=== PATIENT | female | born 1940 | race Caucasian/White ===

== ENCOUNTER 2016-06-01 01:26 | Inpatient (IN) | payer MEDICARE, BC ==
[2016-06-01] MEDS ORDERED: SODIUM CHLORIDE 0.9% 500 ML IV STA (02:45)
[2016-06-01 03:24] LABS: Basophils % (A) 0 %; CH 27.7; CHCM 30.3; Eosinophils # (A) 0.1 k/uL (0-0.7); Eosinophils % (A) 1 %; HDW 2.91; HGB 11.3 gm/dL (11.4-16.0); Hypochromasia Marked; Luc # (Auto) 0.19; Luc % (Auto) 2; Lymphocytes # (A) 1.5 k/uL (1.0-4.8); Lymphocytes % (A) 19 %; MCHC 30.5 g/dL (31.0-37.0); MCV 91.8 fL (80.0-100.0); Monocytes # (A) 0.6 k/uL (0-1.0); Monocytes % (A) 7 %; Neutrophils # (A) 5.4 k/uL (1.3-7.7); Neutrophils % (A) 70 %; RBC 4.03 m/uL (3.80-5.40); RDW 14.6 % (11.5-15.5); WBC 7.8 k/uL (3.8-10.6)
[2016-06-01 03:36] LABS: Calcium 11.2 mg/dL (8.4-10.2); Potassium 5.6 mmol/L (3.5-5.1); Total Bilirubin 0.6 mg/dL (0.2-1.3); Total Protein 7.7 g/dL (6.3-8.2)
--- NOTE | 2016-06-01 03:53 | CT ---
ADDENDUM - Added by Chung Treviño M.D. on 06/01/2016 3:54 AM (-04:00) typo correction: "intrapelvic" is meant to be "free pelvic" EXAM: CT Abdomen and Pelvis Without Intravenous Contrast. CLINICAL HISTORY: weakness and wheezing, abdominal pain TECHNIQUE: Axial computed tomography images of the abdomen and pelvis without intravenous contrast. CTDI is 50.9 mGy and DLP is 2993.3 mGy-cm This CT exam was performed using one or more of the following dose reduction techniques: automated exposure control, adjustment of the mA and/or kV according to patient size, and/or use of iterative reconstruction technique. Coronal and sagittal reconstructions are performed COMPARISON: 07/22/15 FINDINGS: Lower thorax: No acute findings. ABDOMEN: Liver: Unremarkable. Gallbladder and bile ducts: Unremarkable. No calcified stones. No ductal dilation. Pancreas: Unremarkable. No ductal dilation. Spleen: Unremarkable. No splenomegaly. Adrenals: Unremarkable. No mass. Kidneys and ureters: 7 x 10 cm exophytic lower pole left renal cyst, similar. Stomach and bowel: Unremarkable. No obstruction. No mucosal thickening. Appendix: No findings to suggest acute appendicitis. PELVIS: Bladder: Unremarkable. No stones. Reproductive: Uterus and ovaries are not seen.. ABDOMEN and PELVIS: Intraperitoneal space: Small amount of intrapelvic fluid is nonspecific. Bones/joints: Moderate degenerative changes in the visualized osseous structures. No acute fracture. No dislocation. Soft tissues: Small amount of subcutaneous fat stranding in pelvic is likely related to projection or represents scarring. Vasculature: Moderate amount of atherosclerotic calcifications. No abdominal aortic aneurysm. Lymph nodes: Unremarkable. No enlarged lymph nodes. IMPRESSION: Small amount of intrapelvic fluid is nonspecific.
[2016-06-01] MEDS ORDERED: SODIUM CHLORIDE 0.9% 1,000 ML IV ONE (04:08)
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
[2016-06-01 07:35] LABS: Appearance,Urine Cloudy (Clear); Bilirubin,Urine 1+ (Negative); Glucose,Urine (UA) Negative (Negative); Ketones,Urine Negative (Negative); Leukocyte Esterase,Urine Negative (Negative); Mucus,Urine Occasional /hpf; Nitrite,Urine Negative (Negative); Particle Count 9225; Protein,Urine 1+ (Negative); Specific Gravity,Urine 1.018 (1.001-1.035); Squamous Epithelial Cell,Urine 2 /hpf (0-4); UA Billing (MACRO vs. MICRO) MICRO; WBC,Urine 2 /hpf (0-5)
--- NOTE | 2016-06-01 08:46 | XR ---
EXAMINATION TYPE: XR chest 2V DATE OF EXAM: 06/01/2016 8:39 AM HISTORY: Shortness of breath. COMPARISON: 08/21/2015 TECHNIQUE: Single view of the chest is submitted. FINDINGS: Demonstrated are scattered senescent parenchymal change. Mild chronic elevation left lung base. Inci dental azygos lobe and fissure right upper lobe. There is no evidence for focal infiltrate. The heart is stable. Hilar and mediastinal structures are within normal limits. Degenerative changes are seen of the dorsal spine. IMPRESSION: 1. Chronic changes without evidence for acute pulmonary disease.
[2016-06-01] MEDS ORDERED: FAMOTIDINE 20 MG/2 ML VIAL IV SCH (09:30)
[2016-06-01] MEDS: SODIUM CHLORIDE 0.9% 1,000 ML IV SCH ×2 (09:35→20:14)
[2016-06-01] MEDS: HEPARIN SODIUM,PORCINE 5,000 UNIT/ML 1 ML VIAL SQ SCH ×2 (12:24→22:05)
[2016-06-01 14:33] VITALS: BMI 40.3
[2016-06-01 17:29] LABS: Glucose,Whole Blood 55 mg/dL (75-99)
[2016-06-01] MEDS: INSULIN LISPRO (humaLOG) 300 UNIT/3 ML VIAL SQ SCH ×2 (17:32→22:06)
[2016-06-01] MEDS: INSULIN NPH/REG INSULIN 70/30 300 UNIT/3 ML VIAL SQ SCH (17:32)
[2016-06-01 17:41] LABS: Glucose,Whole Blood 85 mg/dL (75-99)
[2016-06-01 20:10] LABS: Glucose,Whole Blood 160 mg/dL (75-99)
[2016-06-01] MEDS ORDERED: FAMOTIDINE 20 MG TAB PO SCH (21:00)
[2016-06-01] MEDS: MECLIZINE 12.5 MG TAB PO SCH (22:05)
[2016-06-01] MEDS: ATORVASTATIN 10 MG TAB PO SCH (22:05)
[2016-06-01] MEDS: GABAPENTIN 300 MG CAP PO SCH (22:05)
[2016-06-01] MEDS: MELATONIN 3 MG TABLET PO SCH (22:06)
[2016-06-02] MEDS: HEPARIN SODIUM,PORCINE 5,000 UNIT/ML 1 ML VIAL SQ SCH ×4 (00:22→23:26)
[2016-06-02] MEDS: SODIUM CHLORIDE 0.9% 1,000 ML IV SCH ×2 (06:24→16:49)
[2016-06-02] MEDS: GABAPENTIN 300 MG CAP PO SCH ×7 (06:24→23:27)
[2016-06-02] MEDS: LEVOTHYROXINE 125 MCG TAB PO SCH (06:24)
[2016-06-02 07:16] LABS: Glucose,Whole Blood 138 mg/dL (75-99)
[2016-06-02] MEDS: INSULIN NPH/REG INSULIN 70/30 300 UNIT/3 ML VIAL SQ SCH ×3 (08:43→17:32)
[2016-06-02] MEDS: INSULIN LISPRO (humaLOG) 300 UNIT/3 ML VIAL SQ SCH ×4 (08:46→21:05)
[2016-06-02] MEDS: LORATADINE 10 MG TAB PO SCH (08:48)
[2016-06-02] MEDS: FLUoxetine HCL 20 MG CAP PO SCH (08:48)
[2016-06-02] MEDS: MECLIZINE 12.5 MG TAB PO SCH ×2 (08:48→21:04)
[2016-06-02] MEDS: LISINOPRIL 20 MG TAB PO SCH (08:48)
[2016-06-02] MEDS: ASPIRIN 325 MG TAB PO SCH (08:48)
[2016-06-02] MEDS: ATENOLOL 25 MG TAB PO SCH (08:48)
[2016-06-02] MEDS: metFORMIN 850 MG TAB PO SCH (08:49)
[2016-06-02] MEDS: FAMOTIDINE 20 MG TAB PO SCH (08:49)
[2016-06-02] MEDS: HYDROCHLOROTHIAZIDE 25 MG TAB PO SCH (08:49)
[2016-06-02] MEDS ORDERED: DOXYCYCLINE 50 MG CAP PO SCH (09:00)
[2016-06-02] MEDS ORDERED: FAMOTIDINE 20 MG/2 ML VIAL IV SCH (09:00)
[2016-06-02 09:05] LABS: CH 27.1; CHCM 29.9; HCT 33.2 % (34.0-46.0); HDW 2.89; HGB 10.3 gm/dL (11.4-16.0); Hypochromasia Marked; MCH 28.2 pg (25.0-35.0); MCV 90.9 fL (80.0-100.0); Mean Platelet Volume 8.3; RBC 3.66 m/uL (3.80-5.40); RDW 14.3 % (11.5-15.5); WBC 5.3 k/uL (3.8-10.6)
[2016-06-02 09:18] LABS: Calcium 10.5 mg/dL (8.4-10.2); Potassium 5.1 mmol/L (3.5-5.1); Total Bilirubin 0.8 mg/dL (0.2-1.3); Total Protein 7.2 g/dL (6.3-8.2)
--- NOTE | 2016-06-02 10:29 | HP ---
DATE OF ADMISSION: 06/01/2016 CHIEF COMPLAINT: Abdominal pain, vomiting. HISTORY OF PRESENT ILLNESS: This 75-year-old female was admitted to the hospital after presenting to the emergency room with complaints of some nausea, vomiting and lethargy and weakness. The patient could not even stand on her feet. The patient was brought in to the emergency room in view of this. The patient has complained of these symptoms been going on for about a week. The patient because of weakness was brought in the emergency room. The daughter reports that patient was mildly confused. At the time of my evaluation, patient is totally awake, alert and her usual self. The patient does have a history of diabetes mellitus; however, she has been despite not eating much and having some intermittent vomiting, in no distress and blood sugars have been pretty good. The patient also has a previous history of pancreatitis and obstructive jaundice for which she had an ERCP back in September 2015 with resolution of her symptoms. Patient has had no further symptoms of jaundice. At present, the patient presents with mildly elevated calcium, lipase and potassium and dehydration. Suspected the patient may have underlying pancreatitis as she complains of pain in the epigastric area and back. The epigastric pains is not a radiating type of pain. The back pain seems to be also pretty much the whole back. She feels generalized malaise and weak. She has had no fever or chills. Denies any dysuria or hematuria. She has not had a bowel movement for over a week now. Past medical history is primarily significant for long-standing history of diabetes mellitus with complications of peripheral arterial disease and peripheral neuropathy. She also has a history of hypertension, hypothyroidism, and possible left subclavian steal syndrome. She does have history of gastroesophageal reflux, chronic dizziness, degenerative arthritis. No history of any myocardial infarction. Past surgical history is significant for appendectomy, tonsillectomy, cholecystectomy, total abdominal hysterectomy, left knee surgery, left ear surgery and an ERCP. PERSONAL HISTORY: She is a nonsmoker. Alcohol, none. FAMILY MEDICAL HISTORY: Brother 79 with history of diabetes mellitus, coronary artery disease; a brother, 68 with history of alcohol dependency. The patient has 2 daughters and 2 sons, one son recently . He was young. Another son has had a history of hypertension, diabetes mellitus. The patient has 2 daughters, one is obese and history of bronchial asthma, the other one has history of chronic anxiety. The patient is . SOCIAL HISTORY: Patient is , lives with her daughter. Allergies to IVP DYE and CODEINE. Medications include: 1. Metformin 850 mg daily. 2. Zantac 150 mg b.i.d. 3. Melatonin 3 mg at bedtime. 4. Antivert 12.5 mg b.i.d. 5. Lovastatin 40 mg daily. 6. Claritin 10 mg daily. 7. Synthroid 125 mcg daily. 8. Insulin, Novolin 70/30 sixty units a.c. t.i.d. 9. Hydrochlorothiazide 25 mg daily. 10. Neurontin 300 mg b.i.d. and 600 mg at bedtime. 11. Prozac 40 mg daily. 12. Doxycycline 100 mg q.48 hours. 13. Vitamin B12. 14. Lotensin 20 mg daily. 15. Tenormin 25 mg daily. 16. Aspirin 1 daily. 17. Xanax, 0.5 mg t.i.d. REVIEW OF SYSTEMS: NEURO: Denies any headaches, dizziness. No double vision, blurred vision. No symptoms of TIA, syncope, seizure. PSYCH: History of chronic anxiety and depression. CARDIAC: No angina, chest pain, shortness of breath, PND, orthopnea. RESPIRATORY: Denies shortness of breath, cough, hemoptysis. GI: Present complaint of nausea, vomiting, abdominal pain. No diarrhea, has had constipation. : No symptoms of dysuria, hematuria, decreased urine output. EXTREMITIES: Denies pain but does have generalized weakness of the lower extremities. CONSTITUTIONAL: No fever or chills. HEMATOLOGIC: No anemia or bleeding disorder. ENDOCRINE: History of diabetes mellitus. SKIN: No rash. ENT: Adequate vision and mild decreased hearing. PHYSICAL EXAMINATION: Pleasant, elderly female, who appears at present in no distress after receiving some hydration in the emergency room. Vital signs reveal temperature 97.6, pulse 72, respirations 16, blood pressure 151/66. At the time of ER evaluation, patient's temperature is 97.4, pulse 71, respirations 22, blood pressure 129/58, pulse ox 98% on 2 L. HEENT: Normocephalic. Pupils reactive. However, the patient has anisocoria, left pupil larger than the right. Nostrils are clear. Oral cavity is dry. Ears reveal no drainage. Neck reveals no JVD, carotid bruits, or thyromegaly. CHEST EXAMINATION: Trachea central. Symmetrical expansion, lung schneider are clear to auscultation. CARDIAC: Normal S1, S2 with no gallops. Systolic murmur 2/6 left sternal border. ABDOMEN: Protuberant, tender in the epigastric area. Bowel sounds active in all 4 quadrants. There is no rebound tenderness. No CVA tenderness. EXTREMITIES: Reveal no edema. Good pulses upper extremities, markedly decreased pedal pulses. Neurologically awake, alert, oriented with well-coordinated movements though has generalized weakness. LABORATORY ASSESSMENT: CBC is normal except for a hemoglobin of 11.3, platelets 137,000 now generally decreased. Electrolytes revealed potassium was 5.6, BUN 46, creatinine 1.7. Plasma lactic acid was 2.5. Calcium was 11.2, AST 45, lipase 321. Urinalysis had 1+ protein 1+ bilirubin. Total serum bilirubin 0.6. X-rays reported chest x-ray showed some chronic changes with no acute process. EKG reveals normal sinus rhythm with possible anterolateral infarct versus poor progression due to obesity. Her CAT scan of the abdomen, pelvis shows some intra-pelvic fluid is present, nonspecific. Liver was unremarkable. Gallbladder bile ducts were okay, pancreas was okay, spleen okay. There was a cyst in the left kidney. Bladder was unremarkable and the vasculature showed moderate amount of atherosclerotic calcifications with no abdominal aneurysm and no lymph node enlargement. ASSESSMENT: 1. Epigastric pain with nausea and vomiting. Symptoms and findings are suggestive of acute pancreatitis. 2. Mild hypercalcemia. 3. Chronic kidney disease stage III. 4. Peripheral arterial disease. 5. Diabetes mellitus. 6. Hypertension. 7. Generalized weakness. 8. Dehydration. 9. Mild anemia. 10. Mild thrombocytopenia. PLAN: Patient admitted to the hospital, will be hydrated. Patient's calcium could be the etiology to pancreatitis. She has had previous routine gallstone requiring ERCP. Patient's overall condition is reasonably stable at present. Will hydrate the patient and see if the patient can ambulate without difficulty. Patient's general condition was discussed with the patient. Prognosis remains guarded. Of note is that the patient's ERCP on 09/30/2015, patient had dilated common bile duct with filling defects suggestive of a common bile duct stone. The patient had sphincterotomy and balloon extraction using the balloon extraction. In view of that, will continue to monitor closely. Does not seem to have any obstructive jaundice at present. Patient's prognosis remains guarded. Condition was discussed with the patient.
[2016-06-02 11:19] LABS: Glucose,Whole Blood 187 mg/dL (75-99)
[2016-06-02] MEDS ORDERED: CYANOCOBALAMIN 500 MCG TAB PO SCH (12:00)
[2016-06-02 13:17] LABS: Hemoglobin A1C 6.2 % (4.2-6.1)
[2016-06-02 17:13] LABS: Glucose,Whole Blood 62 mg/dL (75-99)
[2016-06-02 17:36] LABS: Glucose,Whole Blood 66 mg/dL (75-99)
[2016-06-02 18:40] LABS: Glucose,Whole Blood 88 mg/dL (75-99)
[2016-06-02 20:23] LABS: Glucose,Whole Blood 104 mg/dL (75-99)
[2016-06-02] MEDS: MELATONIN 3 MG TABLET PO SCH (21:03)
[2016-06-02] MEDS: ATORVASTATIN 10 MG TAB PO SCH (21:04)
[2016-06-03] MEDS: GABAPENTIN 300 MG CAP PO SCH ×2 (04:16→08:32)
--- NOTE | 2016-06-03 05:51 | PN ---
CHIEF COMPLAINT: Re-evaluation. HISTORY OF PRESENT ILLNESS: This is an elderly female, 75 years of age, who was admitted to the hospital with some abdominal pain, nausea, vomiting, and generalized weakness. The patient's general condition is improved. She was feeling better today. REVIEW OF SYSTEMS: NEURO: Denies any headaches, dizziness. PSYCH: No anxiety. CARDIAC: No chest pain, angina, palpitations. RESPIRATORY: Denies shortness of breath, cough, hemoptysis. GI: No nausea, vomiting, abdominal pain, diarrhea. : No symptoms of dysuria, hematuria, urgency, frequency. EXTREMITIES: No pain. CONSTITUTIONAL: No fever, chills. PHYSICAL EXAMINATION: Pleasant female in no distress. VITALS: Temperature 98, pulse 77, respirations 20, blood pressure 124/70, pulse ox 99% on 2 L. HEENT: Normocephalic. NECK: No JVD. Chest is clear to auscultation. CARDIAC: Normal S1, S2 with no gallops, murmurs. ABDOMEN: Soft, no palpable masses. Bowel sounds normal. Epigastric pains resolved. Extremities reveal no edema. Good pulses both upper extremities. Decreased pedal pulses. NEUROLOGIC: Awake, alert, oriented with well coordinated movements. LABORATORY ASSESSMENT: CBC which shows a hemoglobin 10.3, platelets 119, white count 5.3. BUN 39, creatinine 1.55 with a GFR of 33. Calcium 10.5. A1c of 6.2. ASSESSMENT: 1. Acute pancreatitis, resolving. 2. Diabetes mellitus. 3. Chronic kidney disease stage IIIB. 4. Anemia, chronic. 5. Weakness, improved. 6. Hyperkalemia, resolved. PLAN: The patient at present is stable. Continue present medical regimen. Patient will be continued on IV hydration and advance diet. Prognosis remains guarded. Potential discharge home tomorrow if stable. Will check patient's lipase in the morning.
[2016-06-03] MEDS: LEVOTHYROXINE 125 MCG TAB PO SCH (06:09)
[2016-06-03 07:10] LABS: Glucose,Whole Blood 72 mg/dL (75-99)
[2016-06-03 08:18] LABS: CH 27.5; CHCM 30.2; HCT 34.6 % (34.0-46.0); HDW 2.91; HGB 10.6 gm/dL (11.4-16.0); Hypochromasia Marked; MCH 27.9 pg (25.0-35.0); MCHC 30.5 g/dL (31.0-37.0); MCV 91.3 fL (80.0-100.0); Mean Platelet Volume 8.4; RBC 3.79 m/uL (3.80-5.40); RDW 14.5 % (11.5-15.5); WBC 5.2 k/uL (3.8-10.6)
[2016-06-03] MEDS: INSULIN LISPRO (humaLOG) 300 UNIT/3 ML VIAL SQ SCH (08:31)
[2016-06-03] MEDS: INSULIN NPH/REG INSULIN 70/30 300 UNIT/3 ML VIAL SQ SCH (08:31)
[2016-06-03] MEDS: ASPIRIN 325 MG TAB PO SCH (08:32)
[2016-06-03] MEDS: HEPARIN SODIUM,PORCINE 5,000 UNIT/ML 1 ML VIAL SQ SCH (08:32)
[2016-06-03] MEDS: LORATADINE 10 MG TAB PO SCH (08:33)
[2016-06-03] MEDS: FLUoxetine HCL 20 MG CAP PO SCH (08:33)
[2016-06-03] MEDS: FAMOTIDINE 20 MG TAB PO SCH (08:33)
[2016-06-03] MEDS: MECLIZINE 12.5 MG TAB PO SCH (08:33)
[2016-06-03] MEDS: LISINOPRIL 20 MG TAB PO SCH (08:33)
[2016-06-03] MEDS: HYDROCHLOROTHIAZIDE 25 MG TAB PO SCH (08:33)
[2016-06-03] MEDS: ATENOLOL 25 MG TAB PO SCH (08:33)
[2016-06-03] MEDS: metFORMIN 850 MG TAB PO SCH (08:34)
[2016-06-03 08:38] VITALS: BP 129/59; PULSE 65; RESP 20; TEMP 98.2
[2016-06-03 08:39] LABS: Calcium 11.5 mg/dL (8.4-10.2); Potassium 4.8 mmol/L (3.5-5.1)
--- NOTE | 2016-06-12 12:22 | P.DS ---
Providers Date of admission: 06/01/16 07:14 Attending physician: Lucas Montoya Primary care physician: Lucas Monotya Hospital Course: Hospital course: This 75-year-old female was admitted to the hospital after being brought in the emergency room by the family for some altered mental status weakness and possible some shortness of breath. The patient evaluated in the emergency room. She subsequently admitted. After some hydration the patient appeared to be better. The patient had been having episodes of intermittent vomiting or abdominal pain with mildly elevated lipase and calcium. Is felt that the patient might be having a resolving pancreatitis as she had been sick for about a week. Following admission patient's hydrated. Her general condition improved. Suspect the patient's bilateral hypercalcemia could be contributing cause to his pancreatitis and mental status changes. The patient had a growth in his troponins and was discontinued in view of this. Patient improved, back to her baseline. Patient was ambulating without any difficulty. Patient was eating around meals fairly well. Patient remaining stable was discharged home to be followed up with outpatient. Prognosis remained guarded. We'll recheck patient's calcium on the outpatient. Her PTH had been ordered. Results pending Final diagnosis to include: 1. Acute pancreatitis 2. Hypercalcemia 3. Chronic kidney disease stage III 4. Diabetes mellitus associated with peripheral arterial disease and chronic kidney disease. 5. Hypertension 6. Encephalopathy resolved 7. Obesity 8. History of chronic depression Plan - Discharge Summary Discharge Medication List Cyanocobalamin [Vitamin B-12] 1,000 mcg PO DAILY 08/16/15 [History] Gabapentin [Neurontin] 300 mg PO Q4H 08/16/15 [History] Loratadine [Claritin] 10 mg PO DAILY 08/16/15 [History] Melatonin 3 mg PO HS 08/16/15 [History] Ranitidine HCl [Zantac] 150 mg PO BID 08/16/15 [History] Atenolol [Tenormin] 25 mg PO DAILY 08/19/15 [History] Benazepril [Lotensin] 20 mg PO DAILY 08/19/15 [History] Gabapentin 600 mg PO HS 08/19/15 [History] Insulin NPH Hum/Reg Insulin Hm [NovoLIN 70-30 100 UNIT/ML VIAL] 60 unit SQ AC- TID 08/19/15 [History] Doxycycline Hyclate 100 mg PO Q48H 08/21/15 [History] ALPRAZolam [Xanax] 0.5 mg PO TID tab 08/23/15 [Rx] Lovastatin 40 mg PO HS 09/26/15 [History] Meclizine [Antivert] 12.5 mg PO BID 09/26/15 [History] metFORMIN HCL [Glucophage] 850 mg PO DAILY 09/26/15 [History] Aspirin EC [Ecotrin] 325 mg PO DAILY 06/01/16 [History] FLUoxetine HCL [PROzac] 40 mg PO DAILY 06/01/16 [History] Levothyroxine Sodium [Synthroid] 125 mcg PO DAILY 06/01/16 [History] Follow up Appointment(s)/Referral(s): Lucas Montoya MD [Primary Care Provider] - 06/09/16 11:15 am Patient Instructions/Handouts: Pancreatitis (DC), Type 2 Diabetes in Adults (DC ), Weakness (GEN) Activity/Diet/Wound Care/Special Instructions: [facility]-[phone] Discharge Disposition: HOME WITH HOME HEALTH SERVICES
--- NOTE | 2016-06-16 09:41 | CDI ---
In responding to this query, please exercise your independent professional judgment. The [facility] Coding Staff and Clinical Documentation Specialists appreciate your assistance in clarifying documentation, maintaining compliance with coding guidelines, accurately documenting patients condition and capturing severity of illness. The fact that a question is asked does not imply that any particular answer is desired or expected. Communication forms are a method of clarifying documentation and are not made part of the Legal Health Record. Thank you in advance for your clarification. Last Revision, December 2014 Carlton Vazquez [address] [facility] [place] [address] Documentation Clarification Form Date: 06/16/2016 9:31:00 AM From: Michell Vasquez [facility]/Jessica Arzola, [employer] Worker Phone: Michell = [phone]. Jessica = [phone] Admit Date: 06/01/2016 7:14:00 AM Patient Name: Veronica Fontaine Visit Number: [id number] Discharge Date: 06-03-16 Dr. Lucas Montoya Please confirm any possible specificity to diagnosis of "encephalopathy". See below. Encephalopathy is documented in the Discharge Summary. Emergency Room has documented "Limitation = Altered Mental Status." H&P states "Daughter reports patient being mildly confused". Clinical Indicators: EEG: Not done CT/MRI Brain: Not done Treatment: N/A Consults: None done In your professional opinion, can you please clarify the specific type of encephalopathy, if known? Anoxic Encephalopathy Hypertensive Encephalopathy Metabolic Encephalopathy Septic Encephalopathy Toxic Encephalopathy Traumatic Encephalopathy Hepatic Encephalopathy, if indicated, please clarify: - Indicate if any complications: Coma, other disease process? - Indicate whether acute, sub-acute or chronic? - Causal Condition: Alcoholism, Hepatitis, other disease process? Other, please specify Unable to determine Please document in your progress notes and discharge summary in order to capture severity of illness and risk of mortality. Include clinical findings that support your diagnosis. FYI: Press F11 to launch patient chart. Place X here if this finding has no clinical significance, is not applicable or if you are not able to provide any additional documentation. DEEPAD
--- NOTE | 2016-06-17 15:41 | CDI ---
In responding to this query, please exercise your independent professional judgment. The [facility] Coding Staff and Clinical Documentation Specialists appreciate your assistance in clarifying documentation, maintaining compliance with coding guidelines, accurately documenting patients condition and capturing severity of illness. The fact that a question is asked does not imply that any particular answer is desired or expected. Communication forms are a method of clarifying documentation and are not made part of the Legal Health Record. Thank you in advance for your clarification. Last Revision, December 2014 Carlton Vazquez [address] [place] [address] Documentation Clarification Form Date: 06/17/2016 3:37:00 PM From: Michell Vasquez [facility] & Jessica Arzola, Bilingual Account Manager [phone] Admit Date: 06/01/2016 7:14:00 AM Patient Name: Veronica Fontaine Visit Number: [id number] Discharge Date: 06-03-16 Dr. Lucas Montoya Regarding ENCEPHALOPATHY: Please confirm any possible specificity to diagnosis of "encephalopathy". See below. Encephalopathy is documented in the Discharge Summary. Emergency Room has documented "Limitation = Altered Mental Status." H&P states "Daughter reports patient being mildly confused". Clinical Indicators: EEG: Not done CT/MRI Brain: Not done Treatment: N/A Consults: None done In your professional opinion, can you please clarify the specific type of encephalopathy, if known? Anoxic Encephalopathy Hypertensive Encephalopathy Metabolic Encephalopathy Septic Encephalopathy Toxic Encephalopathy Traumatic Encephalopathy Hepatic Encephalopathy, if indicated, please clarify: - Indicate if any complications: Coma, other disease process? - Indicate whether acute, sub-acute or chronic? - Causal Condition: Alcoholism, Hepatitis, other disease process? Other, please specify Unable to determine Please document in your progress notes and discharge summary in order to capture severity of illness and risk of mortality. Include clinical findings that support your diagnosis. FYI: Press F11 to launch patient chart. Place X here if this finding has no clinical significance, is not applicable or if you are not able to provide any additional documentation. DEEPAD
== END 2016-06-03 10:35 | disposition home health service (06) | DRG 438 ==
LOC: EC 01:26 → 6ICU 07:14 → 5MS5E 09:26
PROVIDERS: ADMIT Internal Medicine; ATTEND Internal Medicine
DX: K85.90 Acute pancreatitis without necrosis or infection, unspecified (principal); G93.40 Encephalopathy, unspecified; E11.42 Type 2 diabetes mellitus with diabetic polyneuropathy; D69.6 Thrombocytopenia, unspecified; E11.22 Type 2 diabetes mellitus with diabetic chronic kidney disease; E11.51 Type 2 diabetes mellitus with diabetic peripheral angiopathy without gangrene; N18.3 Chronic kidney disease, stage 3 (moderate); Z68.41 Body mass index [BMI] 40.0-44.9, adult; E83.52 Hypercalcemia; E87.5 Hyperkalemia; J44.9 Chronic obstructive pulmonary disease, unspecified; E86.0 Dehydration; D64.9 Anemia, unspecified; N28.1 Cyst of kidney, acquired; I12.9 Hypertensive chronic kidney disease with stage 1 through stage 4 chronic kidney disease, or unspecified chronic kidney disease; E66.9 Obesity, unspecified; R53.1 Weakness; E03.9 Hypothyroidism, unspecified; K21.9 Gastro-esophageal reflux disease without esophagitis; F32.9 Major depressive disorder, single episode, unspecified; F41.9 Anxiety disorder, unspecified; M19.90 Unspecified osteoarthritis, unspecified site; E78.5 Hyperlipidemia, unspecified; M54.5 Low back pain; R42 Dizziness and giddiness; H91.90 Unspecified hearing loss, unspecified ear; Z79.4 Long term (current) use of insulin; Z79.899 Other long term (current) drug therapy; Z82.5 Family history of asthma and other chronic lower respiratory diseases; Z83.3 Family history of diabetes mellitus; Z82.49 Family history of ischemic heart disease and other diseases of the circulatory system; Z87.442 Personal history of urinary calculi; Z90.710 Acquired absence of both cervix and uterus; Z91.041 Radiographic dye allergy status; Z88.5 Allergy status to narcotic agent; Z87.828 Personal history of other (healed) physical injury and trauma; Z87.891 Personal history of nicotine dependence; Z79.82 Long term (current) use of aspirin; Z90.49 Acquired absence of other specified parts of digestive tract; Z80.0 Family history of malignant neoplasm of digestive organs; Z81.1 Family history of alcohol abuse and dependence; Z81.8 Family history of other mental and behavioral disorders; Z71.3 Dietary counseling and surveillance; Z86.69 Personal history of other diseases of the nervous system and sense organs
CPT/HCPCS: 36415; 71020; 74176; 80048; 80053; 80061; 81001; 82150; 83036; 83605; 83690; 83970; 84484; 85025; 85027; 87040; 93005; 96360; 96361; 99285

== ENCOUNTER 2016-06-07 10:12 | Inpatient (IN) | payer MEDICARE, BC ==
[~2016-06-07 10:12] MED LIST: ATROPINE SULFATE 0.1 MG/ML 10ML SYRINGE ONE; EPINEPHrine 10 ML SYRINGE (0.1 MG/ML) ONE
[2016-06-07] MEDS ORDERED: IPRATROPIUM-ALBUTEROL 3 ML NEB INHALATION STA (10:17)
[2016-06-07] MEDS ORDERED: methylPREDNISolone SOD SUCCI 125 MG/2 ML VIAL IV STA (10:17)
[2016-06-07] MEDS ORDERED: SODIUM CHLORIDE 0.9% 1,000 ML IV STA (10:17)
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
[2016-06-07 10:31] LABS: Glucose,Whole Blood 131 mg/dL (75-99)
[2016-06-07 10:46] LABS: Basophils % (A) 1 %; CH 27.4; Eosinophils # (A) 0.2 k/uL (0-0.7); Eosinophils % (A) 3 %; HCT 36.1 % (34.0-46.0); HDW 2.89; Hypochromasia Marked; Luc # (Auto) 0.27; Luc % (Auto) 4; Lymphocytes # (A) 1.7 k/uL (1.0-4.8); Lymphocytes % (A) 24 %; MCHC 30.4 g/dL (31.0-37.0); MCV 91.9 fL (80.0-100.0); Mean Platelet Volume 8.6; Monocytes # (A) 0.6 k/uL (0-1.0); Monocytes % (A) 9 %; Neutrophils # (A) 4.4 k/uL (1.3-7.7); Neutrophils % (A) 60 %; RBC 3.93 m/uL (3.80-5.40); RDW 14.9 % (11.5-15.5); WBC 7.2 k/uL (3.8-10.6); WBC (Perox) 7.61
[2016-06-07 10:49] LABS: ABG Base Excess 3.4 mmol/L; ABG HCO3 29 mmol/L (21-25); ABG PCO2 57 mmHg (35-45); ABG PH 7.33 (7.35-7.45); ABG PO2 210 mmHg (83-108); ABG TCO2 31 mmol/L (19-24)
[2016-06-07 11:02] LABS: Calcium 11.2 mg/dL (8.4-10.2); Potassium 5.1 mmol/L (3.5-5.1); Total Bilirubin 0.7 mg/dL (0.2-1.3); Total Protein 7.4 g/dL (6.3-8.2)
[2016-06-07 11:16] LABS: INR 1.1 (<1.1); Partial Thromboplastin Time 20.4 sec (22.0-30.0)
--- NOTE | 2016-06-07 11:16 | CT ---
EXAMINATION TYPE: CT brain wo con DATE OF EXAM: 06/07/2016 11:10 AM COMPARISON: NONE INDICATION: ams DLP: 1121 mGycm, Automated exposure control for dose reduction was used. CONTRAST: None CT of the brain is performed utilizing 3 mm thick sections through the posterior fossa and 3 mm thick sections through the remaining calvarium. Study is performed within 24 hours of arrival to the hosp ital. No abnormal hyperdensity is present to suggest an acute intracranial hemorrhage. No mass lesion is evident. No acute infarcts are evident. Mild periventricular white matter hypodensity adjacent to the anterior horns lateral ventricles is present, likely on the basis of chronic white matter ischemic change. Ventricles and sulci are appropriate for the patient age. Paranasal sinuses and mastoid air cells within the [id number] are clear. IMPRESSIONS: 1. Mild chronic appearing white matter ischemic type changes
[2016-06-07 11:18] LABS: Creatine Kinase 34 U/L (30-135)
--- NOTE | 2016-06-07 11:20 | XR ---
EXAMINATION TYPE: XR chest 1V portable DATE OF EXAM: 06/07/2016 11:15 AM COMPARISON: 06/01/2016 INDICATION: Dyspnea short of breath COPD TECHNIQUE: Single frontal view of the chest is obtained. FINDINGS: The heart size is normal. The pulmonary vasculature is normal. Azygos fissure is present. There may be some atelectasis within the azygos lobe. Exam is somewhat valladares ited by body habitus. Left diaphragm is not well visualized. IMPRESSION: 1. Poor visualization left diaphragm is suggestion of some azygos lobe atelectasis. Findings are wors ening from prior study.
[2016-06-07 11:31] LABS: Creatine Kinase MB 1.3 ng/mL (0.0-2.4); Troponin I <0.012 ng/mL (0.000-0.034)
[2016-06-07 11:54] LABS: Appearance,Urine Clear (Clear); Bilirubin,Urine Negative (Negative); Glucose,Urine (UA) Negative (Negative); Ketones,Urine Negative (Negative); Leukocyte Esterase,Urine Negative (Negative); Nitrite,Urine Negative (Negative); Protein,Urine Negative (Negative); Specific Gravity,Urine 1.007 (1.001-1.035); UA Billing (MACRO vs. MICRO) CHEM; Urobilinogen,Urine <2.0 mg/dL (<2.0)
[2016-06-07] MEDS ORDERED: IPRATROPIUM-ALBUTEROL 3 ML NEB INHALATION PRN (15:13)
[2016-06-07] MEDS: SODIUM CHLORIDE 0.9% 1,000 ML IV SCH (15:21)
[2016-06-07 16:46] LABS: Glucose,Whole Blood 195 mg/dL (75-99)
[2016-06-07] MEDS: IPRATROPIUM-ALBUTEROL 3 ML NEB INHALATION SCH ×2 (16:46→20:20)
[2016-06-07 20:37] LABS: Glucose,Whole Blood 223 mg/dL (75-99)
[2016-06-08 06:08] LABS: Glucose,Whole Blood 273 mg/dL (75-99)
--- NOTE | 2016-06-08 06:13 | HP ---
DATE OF ADMISSION: 06/07/2016 CHIEF COMPLAINT: Unresponsiveness. HISTORY OF PRESENT ILLNESS: This 75-year-old female was brought in to the emergency room because of some unresponsiveness and wheezing and rattly respiration. The patient was seen in the ER, noted to have no clear congestion. She was given updraft because she was obtunded and the ER physician thought she might be hypercarbic. The patient was arousable, but just basically lethargic and not making any particular sense. The patient's son says she woke up to adequate cognition without much problems. She did have a blood sugar of 106. She ate some food but then subsequently became more obtunded and having some described as difficulty breathing. In the ER, she is not noted to have any respiratory distress. The patient, however, due to the obtundation is subsequently admitted to the hospital. There is no evidence to suggest any infection. The patient's laboratory evaluation does reveal basically mildly elevated lipase better than the last time. The patient's calcium; however, is elevated to 11.2. At the last admission, the patient was felt to have pancreatitis probably resolving. The patient's condition had improved significantly with hydration with improvement in her calcium. The patient has suggestion of hyperparathyroidism. The patient's calcium is 11.2. Her albumin 3.2. AST 47. A CAT scan of the brain in the emergency room did not reveal any significant changes. Past medical history is significant for obstructive jaundice for which she had ERCP done and release of biliary stone. The patient has not exhibited any further jaundice since then. The patient at the time of evaluation basically wakes up to quite good alertness and denies any abdominal pain. She has been eating well. She is drinking a good amount of fluids. The patient has generalized weakness. At the time of discharge from the hospital the patient was in good condition. She was walking with a walker, eating on her own. The patient's condition has declined again at home. The family denies giving her any special medications saying that she has been drinking adequate fluids, no supplements, no other OTC medications. Past history is significant for long-standing history of diabetes mellitus with complications of peripheral arterial disease and peripheral neuropathy. She also has a history of hypertension, hypothyroidism, and possible left subclavian steal syndrome. She does have a history of gastroesophageal reflux with no active symptoms of heartburn or dysphagia. She does have history of chronic dizziness, degenerative arthritis. There has been no history of myocardial infarction. She has had a history of obstructive jaundice, that was back in August and September last year. PAST SURGICAL HISTORY: Significant for appendectomy, tonsillectomy, cholecystectomy, total abdominal hysterectomy, left knee surgery, left ear surgery, and an ERCP. PERSONAL HISTORY: She is a nonsmoker. Alcohol none. FAMILY MEDICAL HISTORY: Brother 79 with history of diabetes mellitus, coronary artery disease; a brother 60 with history of alcohol dependency. The patient has 2 daughters and 2 sons, one son recently , he was young. Another son has had a history of hypertension, diabetes mellitus. The patient has 2 daughters, one is obese and history of bronchial asthma. The other daughter has history of chronic anxiety. SOCIAL HISTORY: The patient is , lives with her daughters and son. Allergies to IVP DYE and CODEINE. Medications include: 1. Metformin 850 mg daily. 2. Zantac 150 mg b.i.d. 3. Melatonin 3 mg at bedtime. 4. Antivert 12.5 b.i.d. 5. Lovastatin 40 mg daily. 6. Claritin 10 mg daily. 7. Synthroid 125 mcg daily. 8. Insulin 70/30, 60 units t.i.d. a.c. 9. Neurontin 300 mg b.i.d. and 600 at bedtime. 10. Prozac 40 mg daily. 11. Doxycycline 100 mg every other day. 12. Vitamin B12. 13. Lotensin 20 mg daily. 14. Tenormin 25 mg daily. 15. Aspirin 1 daily, 16. Xanax, 0.5 p.r.n. t.i.d. REVIEW OF SYSTEMS: At the time of evaluation, the patient was sleeping, was aroused to appropriate answers. She denies any headaches, dizziness. Denies any double vision, blurred vision. She is surprised that she is in the hospital. Denies any symptoms of syncope, seizures. No seizure was witnessed. PSYCH: History of chronic anxiety, depression. CARDIAC: Denies chest pain, angina, palpitations, shortness of breath. The family had reported the patient had some wheezing and shortness of breath. RESPIRATORY: Denies shortness of breath, cough, hemoptysis. GI: No reported nausea, vomiting, abdominal pain, decreased appetite. No diarrhea. Patient has constipation. : No symptoms of dysuria, hematuria. Does have some adequate urine output. EXTREMITIES: Denies pain, but has generalized weakness. CONSTITUTIONAL: No fever or chills. HEMATOLOGICAL: No anemia or bleeding disorder. ENDOCRINE: History of diabetes mellitus, hypothyroidism. SKIN: No rashes. ENT: Known adequate vision and mild decreased hearing. PHYSICAL EXAMINATION: Elderly female, at present in no distress. Vital signs reveal temperature 98.3, pulse 71, respirations 16, blood pressure 144/67, pulse ox 99% on 2 L. Vital signs at the time in ER temperature 98.2, pulse 60, respirations 24. Patient had been on 100% rebreathing mask by EMS. HEENT: Normocephalic. Neck is supple. Pupils unequal and reactive. The patient's left pupil larger than right. Nostrils are clear. Oral cavity is dry. Ears reveal no drainage. Neck reveals no JVD. The patient has a left carotid bruit. No thyromegaly. No supraclavicular lymphadenopathy. Chest is clear to auscultation and percussion. CARDIAC: Normal S1, S2 with no gallops. Systolic murmur 2/6 left sternal border. Regular rhythm. Abdomen is obese, nontender. Bowel sounds are active. Extremities reveal no edema. Good pulse right upper extremity, decreased left radial pulse. Decreased pedal pulses. NEUROLOGICALLY: Lethargic, arousable with improved mentation. The patient does move both upper and lower extremities spontaneously upon command. Plantars are equivocal. Deep tendon reflexes generalized decreased symmetrical. Cranial nerves 2 through 12 appear intact. LABORATORY ASSESSMENT: Calcium of 11.2. Hemoglobin of 11. Platelet count 117. The pH 7.33, pCO2 of 57, pO2 of 210 on 100% . BUN 37, creatinine 1.85. Glucose 120. Urinalysis unremarkable. Troponin negative. BNP 246. CT scan of the brain reveals no acute changes. EKG reveals poor R wave progression, but no acute changes. Chest x-ray suggests heart size normal, pulmonary vasculature is normal, azygous fissure is present. There may be some atelectasis present. Left diaphragm not visualized. ASSESSMENT: 1. Altered mental status. Etiologies could be dehydration and hypercalcemia. 2. Diabetes mellitus. 3. Chronic thrombocytopenia. 4. Anemia. 5. Hypertension. 6. Obesity. 7. Recent pancreatitis. PLAN: The patient is admitted to the hospital. Continue with IV hydration. Check patient's PTH, protein electrophoresis. Patient's general condition discussed with the family. Prognosis remains guarded.
[2016-06-08] MEDS ORDERED: PROPOFOL 50 ML IV ONE (06:22)
[2016-06-08] MEDS ORDERED: NOREPINEPHRIN 4 MG-0.9% NS PMX 4 MG/250 ML ML IV ONE (06:26)
[2016-06-08] MEDS ORDERED: NALOXONE 0.4 MG/ML 1 ML VIAL IV PRN (06:33)
[2016-06-08 06:36] LABS: Glucose,Whole Blood 309 mg/dL (75-99)
[2016-06-08] MEDS ORDERED: NOREPINEPHRIN 4 MG-0.9% NS PMX 4 MG/250 ML ML IV SCH (06:45)
[2016-06-08 07:17] LABS: CHCM 28.4; HCT 36.7 % (34.0-46.0); HDW 2.74; HGB 10.9 gm/dL (11.4-16.0); Hypochromasia Marked; INR 1.2 (<1.1); MCH 28.3 pg (25.0-35.0); MCHC 29.7 g/dL (31.0-37.0); MCV 95.4 fL (80.0-100.0); Mean Platelet Volume 9.2; Prothrombin Time 12.2 sec (9.0-12.0); RBC 3.84 m/uL (3.80-5.40); RDW 14.8 % (11.5-15.5); WBC 14.2 k/uL (3.8-10.6)
[2016-06-08 07:23] LABS: Partial Thromboplastin Time 20.8 sec (22.0-30.0)
[2016-06-08 07:25] LABS: Calcium 10.8 mg/dL (8.4-10.2); Magnesium 2.3 mg/dL (1.6-2.3); Phosphorous 6.8 mg/dL (2.5-4.5); Potassium 5.4 mmol/L (3.5-5.1); Total Bilirubin 0.6 mg/dL (0.2-1.3); Total Protein 7.2 g/dL (6.3-8.2)
--- NOTE | 2016-06-08 07:27 | XR ---
EXAM: XR Chest, 1 View. CLINICAL HISTORY: ETT placement. TECHNIQUE: Frontal view of the chest. A total of 2 images were obtained. COMPARISON: CXR dated 06/07/[address] abdomen and pelvis dated 06/01/2016. FINDINGS: Lungs: Increasing opacity in the right lung, most prominent at the right lung base. Persistent opacity at the left lung base which may correspond to elevation of the left hemidiaphragm and prominent epicardial fat. Azygos lobe noted. Pleural space: No pneumothorax. Heart: Cardiac silhouette not well visualized due to adjacent opacities in the lungs. Mediastinum: Stable mediastinal contours. Atherosclerosis of the aortic arch. Bones/joints: Stable osseous structures. Tubes, lines and devices: Endotracheal tube projects at the superior aspect of the aortic arch, approximately 3.5 cm above the level of the [place]arson. Enteric tube courses below the diaphragm, tip not imaged. IMPRESSION: 1. Endotracheal tube tip projects approximately 3.5 cm above the [place]arson. 2. Increasing opacities in the right lung, most prominent at the medial right lung base. Findings may be due to pneumonia, atelectasis, asymmetric edema, aspiration or other etiology. Recommend clinical correlation and attention on follow-up imaging. 3. Opacity at the left lung base which may correspond to elevation of the left hemidiaphragm and prominent epicardial fat. Concurrent atelectasis, infiltrate or other process not excluded. 4. Enteric tube courses below the diaphragm, tip not imaged.
[2016-06-08] MEDS ORDERED: INSULIN NPH/REG INSULIN 70/30 300 UNIT/3 ML VIAL SQ SCH (07:30)
[2016-06-08 07:53] LABS: Creatine Kinase MB 7.3 ng/mL (0.0-2.4); Troponin I 0.444 ng/mL (0.000-0.034)
[2016-06-08] MEDS ORDERED: LISINOPRIL 20 MG TAB PO SCH (09:00)
[2016-06-08] MEDS ORDERED: ATENOLOL 25 MG TAB PO SCH (09:00)
[2016-06-08] MEDS: HEPARIN SODIUM,PORCINE 5,000 UNIT/ML 1 ML VIAL SQ SCH ×3 (09:33→17:48)
[2016-06-08] MEDS: FAMOTIDINE 20 MG TAB PO SCH ×2 (09:33→09:37)
[2016-06-08] MEDS: LEVOTHYROXINE 125 MCG TAB PO SCH (09:34)
[2016-06-08] MEDS: SODIUM CHLORIDE 0.9% 1,000 ML IV SCH ×4 (09:36→17:51)
[2016-06-08] MEDS: ASPIRIN 325 MG TAB PO SCH (09:36)
[2016-06-08] MEDS: CHLORHEXIDINE GLUCONATE 15 ML CUP MUCOUS MEM SCH ×2 (09:36→20:29)
[2016-06-08] MEDS: CYANOCOBALAMIN 500 MCG TAB PO SCH (09:36)
[2016-06-08] MEDS: FLUoxetine HCL 20 MG CAP PO SCH (09:37)
[2016-06-08] MEDS: PROPOFOL 500 MG in EMPTY BAG 1 BAG IV SCH ×3 (10:07→21:54)
--- NOTE | 2016-06-08 10:08 | P.CNPUL ---
History of Present Illness Consult date: 06/08/16 Reason for consult: dyspnea, COPD, pneumonia, abnormal CXR/CT, other Chief complaint: Mental status changes and difficulty breathing History of present illness: This is a 75-year-old female who presented to the emergency department on June 07 with shortness of breath. She is apparently very drowsy and they thought she had also mental status changes. Very poor historian. Attempted verbal communication of the time. The patient doesn't really cannot express herself as to what she was doing in the emergency room and what she was actually feeling. It appeared that she probably had a COPD exacerbation. I'm wondering whether or not she had acute on chronic hyper carbonate respiratory failure and SY she was a bit confused was not able to give a good story. Anyways unclear to me. She was admitted to the sixth floor. She coded this morning at 0600. She was intubated and transferred here to the ICU. Currently on the mechanical ventilator. Vent settings of assist control mode rate of 16 tidal volume is 500 FiO2 100% PEEP of 5. Blood gases are pending. He received 2 L of fluid on the floor she's getting appointment 9 at 125 and the levophed which was on is now off. An art line will be placed. Propofol was started for sedation she was also started on Xopenex and Atrovent updrafts every 4 [id number]. This patient has a past medical history according to the ER divine of COPD diabetes GERD decreased hearing and deafness hyperlipidemia hypertension liver disease and hypo-thyroidism. Review of Systems ROS unobtainable: due to endotracheal tube Past Medical History Past Medical History: COPD, Diabetes Mellitus, Eye Disorder, GERD/Reflux, Hearing Disorder / Deafness, Hyperlipidemia, Hypertension, Liver Disease, Osteoarthritis (OA), Thyroid Disorder Additional Past Medical History / Comment(s): . History of Any Multi-Drug Resistant Organisms: None Reported Past Surgical History: Appendectomy, Cholecystectomy, Hysterectomy, Orthopedic Surgery Additional Past Surgical History / Comment(s): .. Past Anesthesia/Blood Transfusion Reactions: Postoperative Nausea & Vomiting ( PONV) Past Psychological History: Anxiety, Depression Additional Psychological History / Comment(s): Pt resides in her home w/ 1 of her adult sons, 2 adult susan, 2 grandsons. She uses a cane or walker. She also has an electric scooter. Pt can drive but susan takes her to appts. Smoking Status: Former smoker Past Alcohol Use History: None Reported Additional Past Alcohol Use History / Comment(s): Started smoking in 1958 and quit in 1983. Past Drug Use History: None Reported - Past Family History Father Additional Family Medical History / Comment(s): Pt does not know father hx very well-he left when she was a child. She knows he was an alcoholic. Mother Family Medical History: Cancer Additional Family Medical History / Comment(s): Mother was healthy until she was diagnosed with colorectal cancer. She of this at the age of 59 yrs. Medications and Allergies Home Medications Medication Instructions Recorded Confirmed Type Cyanocobalamin [Vitamin B-12] 1,000 mcg PO DAILY 08/16/15 06/07/16 History Gabapentin [Neurontin] 300 mg PO Q4H 08/16/15 06/07/16 History Loratadine [Claritin] 10 mg PO DAILY 08/16/15 06/07/16 History Melatonin 3 mg PO HS 08/16/15 06/07/16 History Ranitidine HCl [Zantac] 150 mg PO BID 08/16/15 06/07/16 History Atenolol [Tenormin] 25 mg PO DAILY 08/19/15 06/07/16 History Benazepril [Lotensin] 20 mg PO DAILY 08/19/15 06/07/16 History Gabapentin 600 mg PO HS 08/19/15 06/07/16 History Insulin NPH Hum/Reg Insulin Hm 60 unit SQ AC-TID 08/19/15 06/07/16 History [NovoLIN 70-30 100 UNIT/ML VIAL] Doxycycline Hyclate 100 mg PO Q48H 08/21/15 06/07/16 History Lovastatin 40 mg PO HS 09/26/15 06/07/16 History Meclizine [Antivert] 12.5 mg PO BID 09/26/15 06/07/16 History metFORMIN HCL [Glucophage] 850 mg PO DAILY 09/26/15 06/07/16 History Aspirin EC [Ecotrin] 325 mg PO DAILY 06/01/16 06/07/16 History FLUoxetine HCL [PROzac] 40 mg PO DAILY 06/01/16 06/07/16 History Levothyroxine Sodium [Synthroid] 125 mcg PO DAILY 06/01/16 06/07/16 History Allergies Allergy/AdvReac Type Severity Reaction Status Date / Time Iodinated Contrast Media - Allergy Rash/Hives Verified 06/07/16 11:44 Oral and [Iodinated Contrast Media - IV Dye] codeine AdvReac Vomiting Verified 06/07/16 11:44 Physical Exam Osteopathic Statement: *. No significant issues noted on an osteopathic structural exam other than those noted in the History and Physical/Consult. Vitals: Vital Signs Temp Pulse Pulse Resp BP BP Pulse Ox 06/08/16 09:00 125 H 22 117/46 100 06/08/16 08:00 98.3 F 16 168/69 100 06/08/16 04:00 98.3 F 82 20 149/67 96 06/08/16 00:00 97.1 F L 71 18 140/61 99 06/07/16 20:42 67 06/07/16 20:22 67 06/07/16 20:00 98.3 F 71 16 144/67 99 06/07/16 17:07 60 06/07/16 16:48 64 100 06/07/16 16:15 96 F L 63 14 113/49 100 06/07/16 15:51 69 178/82 Intake and Output 06/07/16 06/08/16 06/08/16 22:59 06:59 14:59 Intake Total 1125 Output Total 300 600 43 Balance -300 -600 1082 Intake: Intake, IV Titration 1125 Amount Sodium Chloride 0.9% 1, 1125 000 ml @ 125 mls/hr IV . Q8H [facility] Rx#:[id number] Output: Urine 300 600 43 Other: Voiding Method Indwelling Catheter Indwelling Catheter # Bowel Movements 1 Weight 123 kg 128 kg The patient's currently sedated on the mechanical ventilator. We just started propofol for sedation. HEENT examination is grossly unremarkable. NG tube and oral endotracheal tube are in place. Neck supple. Full range of motion. No adenopathy or thyromegaly. Cardiovascular examination reveals regular rhythm rate. No distinct murmur noted. S1-S2 normal. Lungs reveal coarse inspiratory and expiratory rhonchi. Breath sounds are diminished. Breath sounds are equal bilaterally. Abdomen soft bowel sounds are heard Extremities are intact. Slight edema Skin without rash. Neurologic examination cannot be performed. Results - Laboratory Findings CBC and BMP: 06/08/16 06:52 06/08/16 06:52 ABG ABG pH 7.33 (7.35-7.45) L 06/07/16 10:30 ABG pCO2 57 mmHg (35-45) H 06/07/16 10:30 ABG pO2 210 mmHg (83-108) H 06/07/16 10:30 ABG O2 Saturation 100.0 % (94-97) H 06/07/16 10:30 PT/INR, D-dimer PT 12.2 sec (9.0-12.0) H 06/08/16 06:52 INR 1.2 (<1.1) 06/08/16 06:52 Abnormal lab findings: Abnormal Labs 06/07/16 06/07/16 06/08/16 16:44 20:34 05:50 WBC Hgb MCHC PT APTT Potassium Carbon Dioxide BUN Creatinine Glucose POC Glucose (mg/dL) 195 H 223 H 273 H Plasma Lactic Acid Cedrick Calcium Phosphorus AST CK-MB (CK-2) Troponin I Albumin 06/08/16 06/08/16 06/08/16 06:15 06:52 06:52 WBC 14.2 H Hgb 10.9 L MCHC 29.7 L PT APTT Potassium 5.4 H Carbon Dioxide 20 L BUN 44 H Creatinine 2.35 H Glucose 309 H POC Glucose (mg/dL) 309 H Plasma Lactic Acid Cedrick Calcium 10.8 H Phosphorus 6.8 H AST 56 H CK-MB (CK-2) Troponin I Albumin 3.2 L 06/08/16 06/08/16 06/08/16 06:52 06:52 06:52 WBC Hgb MCHC PT 12.2 H APTT 20.8 L Potassium Carbon Dioxide BUN Creatinine Glucose POC Glucose (mg/dL) Plasma Lactic Acid Cedrick 9.1 H* Calcium Phosphorus AST CK-MB (CK-2) 7.3 H* Troponin I 0.444 H* Albumin - Diagnostic Findings Chest x-ray: image reviewed (X-rays labs medications are all reviewed.)
[2016-06-08 10:10] LABS: ABG HCO3 23 mmol/L (21-25); ABG PCO2 49 mmHg (35-45); ABG PH 7.29 (7.35-7.45); ABG PO2 158 mmHg (83-108)
[2016-06-08 10:11] LABS: ABG Base Excess -2.9 mmol/L; ABG TCO2 24 mmol/L (19-24)
--- NOTE | 2016-06-08 10:16 | P.PN ---
Progress Note - Text Assessment and plan, dated 06/08/2016 Acute hypoxemic respiratory failure secondary to COPD. Ventilator dependent respiratory failure Diabetes mellitus Gastroesophageal reflux disease Hyperlipidemia Hypertension Hypothyroidism Plan The patient will have Xopenex and Atrovent added for her updrafts every 4 around -the-clock. She, and art line will be placed. We'll increase the rate on the machine from 16-22 and decreased tidal volume to 400. Currently levothyroid is off. We'll hold off on any pressors at this time. The patient will have NG tube placed and enteral nutrition started. The patient's ventilator will be weaned accordingly. Prognosis is guarded. No additional recommendations are made. Steroids were also added to 60 every 6. No antibiotics at this time we' ll continue to monitor closely. Labs x-rays blood gases in the morning.
[2016-06-08] MEDS: LEVALBUTEROL NEB (CONC) 1.25 MG/0.5 ML AMP INHALATION SCH ×4 (11:05→23:03)
[2016-06-08] MEDS: IPRATROPIUM 0.5 MG/2.5 ML NEBU INHALATION SCH ×4 (11:06→23:03)
[2016-06-08] MEDS ORDERED: SODIUM CHLORIDE 0.9% 1,000 ML IV ONE (11:16)
[2016-06-08] MEDS: INSULIN LISPRO (humaLOG) 300 UNIT/3 ML VIAL SQ SCH ×4 (11:24→20:29)
[2016-06-08] MEDS: methylPREDNISolone SOD SUCCI 125 MG/2 ML VIAL IV SCH ×2 (11:26→17:47)
[2016-06-08 11:32] LABS: Glucose,Whole Blood 258 mg/dL (75-99)
[2016-06-08] MEDS: IPRATROPIUM-ALBUTEROL 3 ML NEB INHALATION SCH (11:56)
--- NOTE | 2016-06-08 12:05 | P.CRDCN ---
History of Present Illness Consult date: 06/08/16 History of present illness: This is a 75-year-old female who was brought to the emergency room with altered mental status and unresponsiveness. Patient was having difficulty with the breathing associated with wheezing. Patient was treated with updraft treatments in the emergency room and apparently she was arousable. Her lab work showed a mildly elevated creatinine and also calcium levels. Patient was admitted to the floor. Apparently around 5:30 this morning patient became progressively bradycardic with various degrees of AV block. Subsequently patient had a cardiac pulmonary arrest requiring coding and intubation. Patient is subsequently admitted to the intensive care unit. Her EKG showed evidence of atrial fibrillation. Currently patient is in the irregular rhythm with a narrow complex. There are several periods are noted which seemed to be nonconducted. It appears that his A-V dissociation with irregular heart rhythm but narrow complex. Patient is on vessel process for blood pressure support. Patient is also getting IV fluids. Chest x-ray showed infiltrates most on the right side which could be secondary to aspiration pneumonia. Concomitant CHF cannot be excluded. Her creatinine also went up size to acute renal failure and potassium level of 5.4. I'm going to get an echocardiogram and also repeat CMP to check her potassium and calcium levels. We will also obtain troponin values. It appears that patient may be admitted to the hospital with exacerbation of COPD which might have been aggravated by aspiration pneumonia and acute renal failure. Review of Systems As per the chart Past Medical History Past Medical History: COPD, Diabetes Mellitus, Eye Disorder, GERD/Reflux, Hearing Disorder / Deafness, Hyperlipidemia, Hypertension, Liver Disease, Osteoarthritis (OA), Thyroid Disorder Additional Past Medical History / Comment(s): . History of Any Multi-Drug Resistant Organisms: None Reported Past Surgical History: Appendectomy, Cholecystectomy, Hysterectomy, Orthopedic Surgery Additional Past Surgical History / Comment(s): .. Past Anesthesia/Blood Transfusion Reactions: Postoperative Nausea & Vomiting ( PONV) Past Psychological History: Anxiety, Depression Additional Psychological History / Comment(s): Pt resides in her home w/ 1 of her adult sons, 2 adult susan, 2 grandsons. She uses a cane or walker. She also has an electric scooter. Pt can drive but susan takes her to appts. Smoking Status: Former smoker Past Alcohol Use History: None Reported Additional Past Alcohol Use History / Comment(s): Started smoking in 1957 and quit in 1983. Past Drug Use History: None Reported - Past Family History Father Additional Family Medical History / Comment(s): Pt does not know father hx very well-he left when she was a child. She knows he was an alcoholic. Mother Family Medical History: Cancer Additional Family Medical History / Comment(s): Mother was healthy until she was diagnosed with colorectal cancer. She of this at the age of 59 yrs. Medications and Allergies Home Medications Medication Instructions Recorded Confirmed Type Cyanocobalamin [Vitamin B-12] 1,000 mcg PO DAILY 08/16/15 06/07/16 History Gabapentin [Neurontin] 300 mg PO Q4H 08/16/15 06/07/16 History Loratadine [Claritin] 10 mg PO DAILY 08/16/15 06/07/16 History Melatonin 3 mg PO HS 08/16/15 06/07/16 History Ranitidine HCl [Zantac] 150 mg PO BID 08/16/15 06/07/16 History Atenolol [Tenormin] 25 mg PO DAILY 08/19/15 06/07/16 History Benazepril [Lotensin] 20 mg PO DAILY 08/19/15 06/07/16 History Gabapentin 600 mg PO HS 08/19/15 06/07/16 History Insulin NPH Hum/Reg Insulin Hm 60 unit SQ AC-TID 08/19/15 06/07/16 History [NovoLIN 70-30 100 UNIT/ML VIAL] Doxycycline Hyclate 100 mg PO Q48H 08/21/15 06/07/16 History Lovastatin 40 mg PO HS 09/26/15 06/07/16 History Meclizine [Antivert] 12.5 mg PO BID 09/26/15 06/07/16 History metFORMIN HCL [Glucophage] 850 mg PO DAILY 09/26/15 06/07/16 History Aspirin EC [Ecotrin] 325 mg PO DAILY 06/01/16 06/07/16 History FLUoxetine HCL [PROzac] 40 mg PO DAILY 06/01/16 06/07/16 History Levothyroxine Sodium [Synthroid] 125 mcg PO DAILY 06/01/16 06/07/16 History Allergies Allergy/AdvReac Type Severity Reaction Status Date / Time Iodinated Contrast Media - Allergy Rash/Hives Verified 06/07/16 11:44 Oral and [Iodinated Contrast Media - IV Dye] codeine AdvReac Vomiting Verified 06/07/16 11:44 Physical Exam Vitals: Vital Signs Temp Pulse Pulse Resp BP BP Pulse Ox 06/08/16 11:34 96 06/08/16 11:14 100 06/08/16 11:00 97 24 60/40 97 06/08/16 10:00 114 H 24 89/44 98 06/08/16 09:00 125 H 22 117/46 100 06/08/16 08:00 98.3 F 16 168/69 100 06/08/16 04:00 98.3 F 82 20 149/67 96 06/08/16 00:00 97.1 F L 71 18 140/61 99 06/07/16 20:42 67 06/07/16 20:22 67 06/07/16 20:00 98.3 F 71 16 144/67 99 06/07/16 17:07 60 06/07/16 16:48 64 100 06/07/16 16:15 96 F L 63 14 113/49 100 06/07/16 15:51 69 178/82 Intake and Output 06/07/16 06/08/16 06/08/16 22:59 06:59 14:59 Intake Total 1250 Output Total 300 600 53 Balance -300 -600 1197 Intake: Intake, IV Titration 1250 Amount Sodium Chloride 0.9% 1, 1250 000 ml @ 125 mls/hr IV . Q8H [facility] Rx#:[id number] Output: Urine 300 600 53 Other: Voiding Method Indwelling Catheter Indwelling Catheter Indwelling Catheter # Bowel Movements 1 Weight 123 kg 128 kg 128 kg Patient Weight 06/09/16 06:59 Weight 128 kg GENERAL EXAM: Patient is intubated and sedated HEENT: Normocephalic. NECK: No masses, no nuchal rigidity. CHEST: No chest wall deformity. LUNGS: Diminished breath sounds at bases with expiratory rhonchi. HEART: S1 and S2 normal difficult to assess any murmurs ABDOMEN: Soft SKIN: No rashes CENTRAL NERVOUS SYSTEM: Intubated and sedated EXTREMITIES: No cyanosis, clubbing or edema. Results 06/08/16 06:52 06/08/16 06:52 Cardiac Enzymes 06/08/16 06/08/16 Range/Units 06:52 06:52 AST 56 H (14-36) U/L CK-MB (CK-2) 7.3 H* (0.0-2.4) ng/mL Troponin I 0.444 H* (0.000-0.034) ng/mL Coagulation 06/08/16 Range/Units 06:52 PT 12.2 H (9.0-12.0) sec APTT 20.8 L (22.0-30.0) sec CBC 06/08/16 Range/Units 06:52 WBC 14.2 H (3.8-10.6) k/uL RBC 3.84 (3.80-5.40) m/uL Hgb 10.9 L (11.4-16.0) gm/dL Hct 36.7 (34.0-46.0) % Plt Count 208 (150-450) k/uL Comprehensive Metabolic Panel 06/08/16 Range/Units 06:52 Sodium 142 (137-145) mmol/L Potassium 5.4 H (3.5-5.1) mmol/L Chloride 105 (98-107) mmol/L Carbon Dioxide 20 L (22-30) mmol/L BUN 44 H (7-17) mg/dL Creatinine 2.35 H (0.52-1.04) mg/dL Glucose 309 H (74-99) mg/dL Calcium 10.8 H (8.4-10.2) mg/dL AST 56 H (14-36) U/L ALT 41 (9-52) U/L Alkaline Phosphatase 104 (38-126) U/L Total Protein 7.2 (6.3-8.2) g/dL Albumin 3.2 L (3.5-5.0) g/dL Current Medications Generic Name Dose Route Start Last Admin Trade Name Freq PRN Reason Stop Dose Admin Aspirin 325 mg 06/08/16 09:00 06/08/16 09:36 Aspirin PO Not Given DAILY [facility] Budesonide 1 mg 06/08/16 20:00 Pulmicort INHALATION RT-BID [facility] Chlorhexidine Gluconate 15 ml 06/08/16 09:00 06/08/16 09:36 Peridex MUCOUS MEM 15 ml BID MARY Administration Cyanocobalamin 1,000 mcg 06/08/16 09:00 06/08/16 09:36 Vitamin B-12 PO Not Given DAILY [facility] Fluoxetine HCl 40 mg 06/08/16 09:00 06/08/16 09:37 Prozac PO Not Given DAILY [facility] Formoterol Fumarate 20 mcg 06/08/16 20:00 Perforomist INHALATION RT-BID [facility] Heparin Sodium (Porcine) 5,000 unit 06/08/16 00:00 06/08/16 10:03 Heparin SQ 5,000 unit Q8HR MARY Administration Sodium Chloride 1,000 mls @ 125 mls/hr 06/07/16 15:15 06/08/16 11:26 Saline 0.9% IV 125 mls/hr .Q8H MARY Administration Norepinephrine Bitartrate 4 mg in 250 mls @ 0 mls/hr 06/08/16 06:45 Levophed-0.9% Nacl 4 Mg/250ml Pmx IV .Q0M MARY Protocol Titrate Propofol 500 mg/ IV Solution 50 mls @ 0 mls/hr 06/08/16 06:45 06/08/16 10:07 IV 10 mcg/kg/min .Q0M MARY 7.68 mls/hr Protocol Administration Titrate Sodium Chloride 1,000 mls @ 999 mls/hr 06/08/16 11:16 Saline 0.9% IV 06/08/16 12:16 .Q1H1M ONE Insulin Human Lispro 0 unit 06/08/16 10:00 06/08/16 11:24 Humalog SQ 4 unit Q4H MARY Administration Protocol Ipratropium [place] 0.5 mg 06/08/16 12:00 06/08/16 11:06 Atrovent Nebulized INHALATION 0.5 mg RT-Q4H MARY Administration Levalbuterol HCl 1.25 mg 06/08/16 12:00 06/08/16 11:05 Xopenex Nebulized (Conc) INHALATION 1.25 mg RT-Q4H [facility] Administration Levothyroxine Sodium 125 mcg 06/08/16 06:30 06/08/16 09:34 Synthroid PO Not Given DAILY@0630 [facility] Methylprednisolone Sodium Succinate 60 mg 06/08/16 12:00 06/08/16 11:26 Solu-Medrol IV 60 mg Q6HR MARY Administration Naloxone HCl 0.2 mg 06/08/16 06:33 Narcan IV Q2M PRN Opioid Reversal Intake and Output 06/07/16 06/08/16 06/08/16 22:59 06:59 14:59 Intake Total 1250 Output Total 300 600 53 Balance -300 -600 1197 Intake: Intake, IV Titration 1250 Amount Sodium Chloride 0.9% 1, 1250 000 ml @ 125 mls/hr IV . Q8H [facility] Rx#:[id number] Output: Urine 300 600 53 Other: Voiding Method Indwelling Catheter Indwelling Catheter Indwelling Catheter # Bowel Movements 1 Weight 123 kg 128 kg 128 kg Patient Weight 06/09/16 06:59 Weight 128 kg 06/08/16 06:52 06/08/16 06:52 EKG Interpretations (text) Initial EKG showed sinus rhythm. Subsequent EKG showed atrial fibrillation with RVR. Currently patient is in a multifocal atrial rhythm with AV dissociation. Assessment and Plan (1) Cardiopulmonary arrest Status: Acute (2) Acute exacerbation of chronic obstructive airways disease Status: Acute (3) Altered mental status Status: Acute (4) Atrial fibrillation Status: Acute (5) Multifocal atrial tachycardia Status: Acute (6) AV block Status: Acute Plan: Continue current management. I'll obtain an echocardiogram and repeat blood work. If her potassium is still high ,may need Kayexalate. We'll also follow calcium levels. Continue the recommendation of clinical academic allergist. May need nephrology consult. Prognosis is guarded
[2016-06-08 12:23] LABS: Calcium 9.9 mg/dL (8.4-10.2); Potassium 5.4 mmol/L (3.5-5.1); Total Bilirubin 0.6 mg/dL (0.2-1.3); Total Protein 6.5 g/dL (6.3-8.2)
--- NOTE | 2016-06-08 13:25 | CDI ---
In responding to this query, please exercise your independent professional judgment. The [facility] Coding Staff and Clinical Documentation Specialists appreciate your assistance in clarifying documentation, maintaining compliance with coding guidelines, accurately documenting patients condition and capturing severity of illness. The fact that a question is asked does not imply that any particular answer is desired or expected. Communication forms are a method of clarifying documentation and are not made part of the Legal Health Record. Thank you in advance for your clarification. Last Revision, December 2014 Carlton Vazquez [address] [facility] [place] [address] Documentation Clarification Form Date: 06/08/2016 1:15:00 PM From: Jaye Rincon CCS, CCDS Admit Date: 06/07/2016 3:16:00 PM Patient Name: Veronica Fontaine Visit Number: [id number] Discharge Date: Dr. Allen Toro: Atrial fibrillation is documented in the Cardiology Consult. Admitted with exacerbation COPD, possible aspiration pneumonia, acute renal failure, possible CHF and acute pancreatitis. History/Risk Factors: COPD, DM, Hypertension, Hyperlipidemia, pancreatitis and UTIs. Clinical Indicators: Presented with altered mental status & unresponsiveness, difficulty breathing & wheezing, noted to have elevated pancreatic enzymes. HR: 60 - 100 EKG/telemetry: R 63 nsr w/sinus arrhythmia. Treatment: Updrafts, IV fluids, IV Solumedrol, Heparin sq, Intubated and to ICU after cardiopulmonary arrest. Urine & blood cxs, ECHO pending. Consults: Pulmonary/Critical Care, Cardiology In your professional opinion, can you please clarify the type of atrial fibrillation, if known? Chronic/Permanent Paroxysmal Persistent Other, please specify Unable to determine Please document in your progress notes and discharge summary in order to capture severity of illness and risk of mortality. Include clinical findings that support your diagnosis. FYI: Press F11 to launch patient chart Place X here if this finding has no clinical significance, is not applicable or if you are not able to provide any additional documentation. Thank You. KAYLA
--- NOTE | 2016-06-08 16:17 | CT ---
EXAMINATION TYPE: CT brain wo con DATE OF EXAM: 06/08/2016 4:13 PM COMPARISON: 06/07/2016 HISTORY: cva CT DLP: 999.[address] of the brain was performed. The ventricles, basal cisterns and sulci overlying the cerebral convexities demonstrate mild enlargem ent. There is no evidence for intracranial hemorrhage or sulcal effacement. There is decreased attenuation about the periventricular white matter and deep white matter of both c erebral hemispheres, compatible with chronic small vessel ischemia. Differential diagnosis does inclu de demyelination. No mass effects are seen.No midline shift. Osseous calvarium is intact. If symptoms persist consider MRI. IMPRESSION: 1. Age related atrophic and chronic small vessel ischemic change without acute intracranial process s een at this time.
[2016-06-08] MEDS ORDERED: FUROSEMIDE 10 MG/ML 2 ML VIAL IV ONE (16:56)
[2016-06-08 17:53] LABS: Glucose,Whole Blood 277 mg/dL (75-99)
[2016-06-08] MEDS: FORMOTEROL FUMARATE 20 MCG/2 ML NEBU INHALATION SCH (19:25)
[2016-06-08] MEDS: BUDESONIDE 1 MG/2 ML NEBU INHALATION SCH (19:25)
[2016-06-08 19:58] LABS: Glucose,Whole Blood 268 mg/dL (75-99)
--- NOTE | 2016-06-08 20:23 | PCN ---
ARTERIAL LINE PLACEMENT Indication: Hemodynamic monitoring. A time-out was completed verifying correct patient, procedure, site, positioning, and implant(s) or special equipment if applicable. Gene's test was performed to ensure adequate perfusion. The patient's right wrist was prepped and draped in sterile fashion. 1% Lidocaine was used to anesthetize the area. An 18G Arrow arterial line was introduced into the radial artery. The catheter was threaded over the guide wire and the needle was removed with appropriate pulsatile blood return. Blood loss was minimal. The catheter was then sutured in place to the skin and a sterile dressing applied. Perfusion to the extremity distal to the point of catheter insertion was checked and found to be adequate. The patient tolerated the procedure well and there were no immediate complications. I performed a history and physical examination of this patient and discussed the same with the dictator. I agree with the dictator's note. Any additional findings/opinions, etc. will be noted.
[2016-06-08 23:58] LABS: Glucose,Whole Blood 300 mg/dL (75-99)
[2016-06-09] MEDS: SODIUM CHLORIDE 0.9% 1,000 ML IV SCH ×3 (00:04→15:05)
[2016-06-09] MEDS: methylPREDNISolone SOD SUCCI 125 MG/2 ML VIAL IV SCH ×4 (00:04→17:36)
[2016-06-09] MEDS: INSULIN LISPRO (humaLOG) 300 UNIT/3 ML VIAL SQ SCH ×5 (00:05→17:39)
[2016-06-09] MEDS: HEPARIN SODIUM,PORCINE 5,000 UNIT/ML 1 ML VIAL SQ SCH ×3 (00:05→17:36)
[2016-06-09] MEDS: PROPOFOL 500 MG in EMPTY BAG 1 BAG IV SCH ×3 (01:09→22:23)
[2016-06-09] MEDS: IPRATROPIUM 0.5 MG/2.5 ML NEBU INHALATION SCH ×6 (02:53→23:38)
[2016-06-09] MEDS: LEVALBUTEROL NEB (CONC) 1.25 MG/0.5 ML AMP INHALATION SCH ×6 (02:53→23:38)
[2016-06-09 04:17] LABS: Glucose,Whole Blood 315 mg/dL (75-99)
[2016-06-09 04:27] LABS: Calcium 9.9 mg/dL (8.4-10.2); Magnesium 2.1 mg/dL (1.6-2.3); Phosphorous 2.8 mg/dL (2.5-4.5); Potassium 5.2 mmol/L (3.5-5.1)
[2016-06-09 04:40] LABS: Basophils % (A) 0 %; CH 27.5; Eosinophils % (A) 0 %; HCT 30.1 % (34.0-46.0); HGB 9.7 gm/dL (11.4-16.0); Hypochromasia Moderate; Luc # (Auto) 0.11; Luc % (Auto) 2; Lymphocytes # (A) 0.7 k/uL (1.0-4.8); Lymphocytes % (A) 9 %; MCH 28.8 pg (25.0-35.0); MCHC 32.4 g/dL (31.0-37.0); Mean Platelet Volume 9.6; Monocytes # (A) 0.4 k/uL (0-1.0); Monocytes % (A) 6 %; Neutrophils # (A) 5.8 k/uL (1.3-7.7); Neutrophils % (A) 83 %; RBC 3.37 m/uL (3.80-5.40); WBC (Perox) 7.74
[2016-06-09 04:51] LABS: MCV 89.1 fL (80.0-100.0)
[2016-06-09] MEDS: LEVOTHYROXINE 125 MCG TAB PO SCH (05:52)
[2016-06-09 06:03] LABS: ABG Base Excess -2.4 mmol/L; ABG HCO3 22 mmol/L (21-25); ABG PCO2 38 mmHg (35-45); ABG PH 7.38 (7.35-7.45); ABG PO2 114 mmHg (83-108); ABG TCO2 23 mmol/L (19-24)
[2016-06-09] MEDS: BUDESONIDE 1 MG/2 ML NEBU INHALATION SCH ×2 (07:17→19:39)
[2016-06-09] MEDS: FORMOTEROL FUMARATE 20 MCG/2 ML NEBU INHALATION SCH ×2 (07:17→19:39)
[2016-06-09 07:43] LABS: Glucose,Whole Blood 301 mg/dL (75-99)
--- NOTE | 2016-06-09 07:46 | XR ---
EXAMINATION TYPE: XR chest 1V portable DATE OF EXAM: 06/09/2016 7:09 AM CLINICAL HISTORY: Difficulty breathing progress study. TECHNIQUE: Single AP portable some I upright view of the chest is obtained. COMPARISON: Chest x-ray from one day earlier FINDINGS: An endotracheal tube and orogastric tube are stable in appearance. There is persistent car diomegaly with dense left basilar consolidation silhouetting left heart border and hemidiaphragm. The re is persistent right medial basilar opacity. There is persistent central vascular congestion felt s lightly improved. An azygos lobe/fissure is redemonstrated. No pneumothorax is seen bilaterally. Osse ous structures are intact. IMPRESSION: Cardiomegaly with small to moderate-sized left pleural effusion and bibasilar infiltrate and/or atelectasis all redemonstrated felt stable. Interval improvement in central vascular congestio n is noted.
--- NOTE | 2016-06-09 07:48 | PN ---
CHIEF COMPLAINT: Re-evaluation. HISTORY OF PRESENT ILLNESS: A 75-year-old female who was admitted to the hospital after being brought into the emergency room. The patient had woken up in the morning without any difficulty. The patient had been and around in a limited way. The patient's son checked the patient's blood sugar, it was 106 and she ate some yogurt. The patient subsequently became almost unresponsive with some confusion. The patient's son noticed that she was having some difficulty breathing. EMS was called and patient was brought into the ER. ER noted that the patient was lethargic and somewhat obtunded. No clear significant respiratory distress. The patient's blood gas was done because Dr. Shaikh felt that the patient might be hypercarbic because of encephalopathy. The patient's pH of 7.33 pCO2 of 57. The patient was seen by me in the evening. The patient had been asleep. She was awoken, aroused easily and answered questions fairly freely. The patient later through the night according to the nursing had remained stable with no intact vitals and responding appropriate verbally. However, the patient at 6:00 suddenly became bradycardic and had AV dissociation. The patient had no palpable pulses. The patient had to be intubated. The patient after intubation was transferred to the ICU. The patient was hypotensive. Lactic acid came back high. The patient's lactic acid is probably related to hypoperfusion. She was placed on Levophed. The patient received IV fluids. Chest x-ray, however, suggests possible congestive failure changes. The patient on telemetry does have tachycardia. The patient's blood pressures is in the 150s on Levophed. The patient unresponsive. Does roll her eyes, but no specific purposeful movements. REVIEW OF SYSTEMS: NEURO: As mentioned above no reported fever, chills. The patient had sudden event. The patient had not complained of any chest pains or abdominal pains prior to this event. The patient has an adequate urine output. She was on IV fluids at 125 mL an hour. PHYSICAL EXAMINATION: An elderly female, 75 years of age, who was partly sedated on Levophed and IV fluids. HEENT: Normocephalic. Pupils are reactive. Left pupil is slightly larger than right, which has been chronic changes. Patient has an ET tube. Neck reveals no JVD. CHEST EXAMINATION: Clear to auscultation with mild generalized decreased air flow. CARDIAC: Distant heart sounds. S1, S2 with no gallops. The patient is tachycardia. ABDOMEN: Protuberant. Bowel sounds are present. Soft. Extremities reveal no edema. The patient has generalized stiffness. Laboratory assessment was an x-ray of the chest increasing opacities in the right lung most prominent medial right lung base. Findings could be due to pneumonia and atelectasis, asymmetric edema, aspiration or other etiology not ruled out. Opacity of the left base is felt to be related to elevated diaphragm. Brain CAT scan reveals no changes compared to admission CT. Laboratory assessment had revealed white count of 14.2, hemoglobin 10.9, platelets 208. INR 1.2. Potassium 5.4, chloride 105, CO2 content 20; BUN 44, creatinine 2.35. The pH is 7.29, pCO2 of 49, pO2 of 158 on 100% of FiO2. ASSESSMENT: 1. Acute cardiopulmonary arrest, etiology undetermined. 2. Jae arrhythmia. 3. Acute respiratory failure. 4. Diabetes mellitus. 5. Hyperkalemia. 6. Acute on chronic renal failure. PLAN: Continue present regimen as ordered by pulmonary physician, cardiology consult and echocardiogram. The patient will be placed empirically on IV antibiotics. Prognosis guarded. Condition of the patient was discussed with the family.
[2016-06-09] MEDS ORDERED: INSULIN DETEMIR 100 UNIT/ML 10 ML VIAL SQ SCH ×2 (08:00→21:00)
[2016-06-09] MEDS: CHLORHEXIDINE GLUCONATE 15 ML CUP MUCOUS MEM SCH ×2 (08:36→21:05)
[2016-06-09] MEDS: CYANOCOBALAMIN 500 MCG TAB PO SCH (08:36)
[2016-06-09] MEDS: ASPIRIN 325 MG TAB PO SCH (08:36)
[2016-06-09] MEDS: FLUoxetine HCL 20 MG CAP PO SCH (08:37)
[2016-06-09] MEDS: PIPERACILLIN-TAZOBACTAM 3.375 GM in DEXTROSE/WATER 1 50ML.BAG IVPB SCH ×2 (08:55→21:05)
[2016-06-09] MEDS ORDERED: INSULIN GLARGINE 100 UNIT/ML 10 ML VIAL SQ SCH (09:00)
--- NOTE | 2016-06-09 09:34 | P.PN ---
Subjective Progress note dated 06/09/2016 This is a 75-year-old female who initially presented to the emergency department on June 07 shortness of breath. She apparently had a cardiopulmonary arrest on the sixth floor and she was transferred here yesterday. She was intubated on the sixth floor during the cardiopulmonary arrest. The circumstances of her rest are not known. I suspect she had worsening hypercapnic respiratory failure. She apparently does have a history of severe COPD. Anyway she's currently here in the ICU on the ventilator. Yesterday we put an art line in her. Today's of vent settings include the assist control mode rate of 24 a tidal volume of 400 and FiO2 of 50% to be dropped to 40% and a PEEP of 5. Blood gases show a PaO2 of 114 PaCO2 of 38 and a pH of 7.38. The patient's on normal saline at 1 25 mL an hour propofol at 20 mics per kilogram per minute and vital high protein at a rate of 40 with a goal of 57. She was admitted to the ICU on the and had her cardiopulmonary arrest on the . Objective - Vital Signs Vital signs: Vital Signs Temp 99.3 F 06/09/16 08:00 Pulse 86 06/09/16 09:00 Resp 22 06/09/16 07:00 BP 81/38 06/09/16 09:00 Pulse Ox 96 06/09/16 09:00 Intake & Output 06/08/16 06/09/16 06/09/16 18:59 06:59 18:59 Intake Total 3175 2093.298 125 Output Total 228 575 60 Balance 2947 1518.298 65 Weight 135.4 kg Intake: IV 1375 125 Sodium Chloride 0.9% 1, 1375 125 000 ml @ 125 mls/hr IV . Q8H MARY Rx#:[id number] Intake, IV Titration 3175 308.298 Amount Norepinephrin 4 mg-0.9% 35.25 Ns Pmx 4 mg In 250 ml @ Titrate IV .Q0M MARY Rx#: [id number] Propofol 500 mg In Empty 50 148.048 Bag 1 bag @ Titrate IV . Q0M MARY Rx#:[id number] Sodium Chloride 0.9% 1, 3125 125 000 ml @ 125 mls/hr IV . Q8H MARY Rx#:[id number] Tube Feeding 380 Other 30 Output: Urine 228 575 60 Other: Voiding Method Indwelling Catheter Indwelling Catheter ABP, PAP, CO, CI - Last Documented Arterial Blood Pressure 135/110 - Exam No acute distress. She is currently sedated. Oral gastric tube and endotracheal tube are noted. HEENT examination is grossly unremarkable. Mucous membranes are moist. Neck supple. Full range of motion. No adenopathy or thyromegaly. Cardio vascular examination reveals regular rhythm rate. Heart rate about 100. S1-S2 normal. No distinct murmur noted. Lungs reveal diminished breath sounds. A few scattered rhonchi. Some bibasilar crackles. Abdomen is obese. Bowel sounds are heard. Extremities are intact. Slight edema noted. Neurologic examination cannot be adequately performed Skin is without rash or lesions. - Labs CBC & Chem 7: 06/09/16 03:50 06/09/16 03:50 Labs: Abnormal Lab Results - Last 24 Hours (Table) 06/08/16 06/08/16 06/08/16 Range/Units 06:52 09:53 11:21 RBC (3.80-5.40) m/uL Hgb (11.4-16.0) gm/dL Hct (34.0-46.0) % Plt Count (150-450) k/uL Lymphocytes # (1.0-4.8) k/uL ABG pH 7.29 L (7.35-7.45) ABG pCO2 49 H (35-45) mmHg ABG pO2 158 H (83-108) mmHg ABG O2 Saturation 99.0 H (94-97) % Potassium (3.5-5.1) mmol/L Chloride (98-107) mmol/L BUN (7-17) mg/dL Creatinine (0.52-1.04) mg/dL Glucose (74-99) mg/dL POC Glucose (mg/dL) 258 H (75-99) mg/dL AST (14-36) U/L Albumin (3.5-5.0) g/dL PTH Intact 506.2 H (14.0-72.0) pg/mL 06/08/16 06/08/16 06/08/16 Range/Units 11:58 17:49 19:57 RBC (3.80-5.40) m/uL Hgb (11.4-16.0) gm/dL Hct (34.0-46.0) % Plt Count (150-450) k/uL Lymphocytes # (1.0-4.8) k/uL ABG pH (7.35-7.45) ABG pCO2 (35-45) mmHg ABG pO2 (83-108) mmHg ABG O2 Saturation (94-97) % Potassium 5.4 H (3.5-5.1) mmol/L Chloride 109 H (98-107) mmol/L BUN 47 H (7-17) mg/dL Creatinine 2.31 H (0.52-1.04) mg/dL Glucose 285 H (74-99) mg/dL POC Glucose (mg/dL) 277 H 268 H (75-99) mg/dL AST 68 H (14-36) U/L Albumin 2.7 L (3.5-5.0) g/dL PTH Intact (14.0-72.0) pg/mL 06/08/16 06/09/16 06/09/16 Range/Units 23:57 03:50 03:50 RBC 3.37 L (3.80-5.40) m/uL Hgb 9.7 L (11.4-16.0) gm/dL Hct 30.1 L (34.0-46.0) % Plt Count 96 L D (150-450) k/uL Lymphocytes # 0.7 L (1.0-4.8) k/uL ABG pH (7.35-7.45) ABG pCO2 (35-45) mmHg ABG pO2 (83-108) mmHg ABG O2 Saturation (94-97) % Potassium 5.2 H (3.5-5.1) mmol/L Chloride 109 H (98-107) mmol/L BUN 57 H (7-17) mg/dL Creatinine 2.40 H (0.52-1.04) mg/dL Glucose 300 H (74-99) mg/dL POC Glucose (mg/dL) 300 H (75-99) mg/dL AST (14-36) U/L Albumin (3.5-5.0) g/dL PTH Intact (14.0-72.0) pg/mL 06/09/16 06/09/16 06/09/16 Range/Units 04:15 05:47 07:42 RBC (3.80-5.40) m/uL Hgb (11.4-16.0) gm/dL Hct (34.0-46.0) % Plt Count (150-450) k/uL Lymphocytes # (1.0-4.8) k/uL ABG pH (7.35-7.45) ABG pCO2 (35-45) mmHg ABG pO2 114 H (83-108) mmHg ABG O2 Saturation 98.0 H (94-97) % Potassium (3.5-5.1) mmol/L Chloride (98-107) mmol/L BUN (7-17) mg/dL Creatinine (0.52-1.04) mg/dL Glucose (74-99) mg/dL POC Glucose (mg/dL) 315 H 301 H (75-99) mg/dL AST (14-36) U/L Albumin (3.5-5.0) g/dL PTH Intact (14.0-72.0) pg/mL Microbiology - Last 24 Hours (Table) 06/08/16 09:30 Gram Stain - Preliminary Sputum Sputum Culture - Preliminary Assessment and Plan (1) Acute on chronic respiratory failure with hypoxemia Status: Acute (2) Hypoxemic respiratory failure, chronic Status: Acute (3) Acute exacerbation of chronic obstructive airways disease Status: Acute (4) Altered mental status Status: Acute (5) Atrial fibrillation Status: Acute (6) Cardiopulmonary arrest Status: Acute (7) Acute exacerbation of chronic obstructive pulmonary disease (COPD) Status: Acute (8) Morbid obesity with BMI of 40.0-44.9, adult Status: Acute Plan: Plan dated 06/09/2016 The patient will have her FiO2 dropped to 40% from 50%. No additional vent changes are made. She is adequately sedated on propofol. She is being nourished with vital high protein. The patient will have a daily eruption of sedation today and evaluated for his possible spontaneous breathing trial although not hopeful that she'll be able to get 1. She will have a EEG done today. She had 2 CAT scans of the brain either which showed acute abnormality. I did ask for a neurology consultation. She may have suffered some anoxic brain injury. Additional recommendations and suggestions are forthcoming. Labs x-rays a medications are all reviewed. Time with Patient: Greater than 30
--- NOTE | 2016-06-09 10:21 | CDI ---
In responding to this query, please exercise your independent professional judgment. The [facility] Coding Staff and Clinical Documentation Specialists appreciate your assistance in clarifying documentation, maintaining compliance with coding guidelines, accurately documenting patients condition and capturing severity of illness. The fact that a question is asked does not imply that any particular answer is desired or expected. Communication forms are a method of clarifying documentation and are not made part of the Legal Health Record. Thank you in advance for your clarification. Last Revision, December 2014 Carlton Vazquez [address] [facility] [place] [address] Documentation Clarification Form Date: 06/09/2016 10:13:00 AM From: Jaye Rincon CCS, CCDS Admit Date: 06/07/2016 3:16:00 PM Patient Name: Veronica Fontaine Visit Number: [id number] Discharge Date: Dr. Lucas Montoya: 75 yo female, presented with lethargy, weakness & SOB. Diagnosed with acute pancreatitis, altered mental status, acute exacerbation of COPD. Patient went into cardiopulmonary arrest, intubated on ventilator. History/Risk Factors: COPD, DM, Hypertension, Chronic pancreatitis. Admission BUN 37, Cr 1.85, GFR 27. Current BUN 57, Cr 2.40, GFR 20 Patients Baseline: unknown Treatment: Albuterol INH, IV fl 20, IV Solumedrol, IV fluid rate 125, Intubated & on Ventilator >24 hrs. Consults: Cardiology, Pulmonary/Critical Care, Neurology In order to capture the severity of condition, please clarify if the condition signifies: CKD Stage 1 (GFR > 90) CKD Stage 2 (GFR 60-89) CKD Stage 3 (GFR 30-59) CKD Stage 4 (GFR 15-29) CKD Stage 5 (GFR <15) ESRD Unable to determine Other condition, please specify Please document in your progress notes and discharge summary in order to capture severity of illness and risk of mortality. Include clinical findings that support your diagnosis. FYI: Press F11 to launch patient chart. Place X here if this finding has no clinical significance, is not applicable or if you are not able to provide any additional documentation. Thank You. KAYLA
[2016-06-09] MEDS ORDERED: FUROSEMIDE 10 MG/ML 4 ML VIAL IV STA (10:40)
--- NOTE | 2016-06-09 10:46 | ECHOF ---
Referral Reason:cardiac arrest MEASUREMENTS -------- HEIGHT: 167.6 cm WEIGHT: 127.9 kg BP: 93/64 RVIDd: 2.9 cm (< 3.3) IVSd: 1.5 cm (0.6 - 1.1) LVIDd: 3.9 cm (3.9 - 5.3) LVPWd: 1.2 cm (0.6 - 1.1) IVSs: 2.3 cm LVIDs: 2.9 cm LVPWs: 1.4 cm LA Diam: 4.1 cm (2.7 - 3.8) LAESV Index (A-L): 27.10 ml/m Ao Diam: 3.0 cm (2.0 - 3.7) AV Cusp: 2.1 cm (1.5 - 2.6) LA Diam: 4.0 cm (2.7 - 3.8) MV EXCURSION: 12.148 mm (> 18.000) MV EF SLOPE: 90 mm/s (70 - 150) EPSS: 0.5 cm RAP: 5.00 mmHg RVSP: 42.41 mmHg FINDINGS -------- Atrial fibrillation. This was a technically adequate study. There is moderate concentric left ventricular hypertrophy. Overall left ventricular systolic function is normal with, an EF between 55 - 60 %. The right ventricle is normal in size. Normal LA size by volume 22+/-6 ml/m2. The right atrium is normal in size. Aortic valve is trileaflet and is mildly thickened. The mitral valve leaflets are mild to moderately thickened. Mild mitral annular calcification present. Mild mitral regurgitation is present. Mild tricuspid regurgitation present. There is mild pulmonary hypertension. The right ventricular systolic pressure, as measured by Doppler, is 42.41mmHg. Trace/mild (physiologic) pulmonic regurgitation. The aortic root, ascending aorta and aortic arch are normal. The inferior vena cava is mildly dilated. Echo free space may represent effusion or a pericardial fat pad. CONCLUSIONS -------- 1. Atrial fibrillation. 2. Mild mitral annular calcification present. 3. Mild mitral regurgitation is present. 4. Mild tricuspid regurgitation present. 5. There is mild pulmonary hypertension. 6. The right ventricular systolic pressure, as measured by Doppler, is 42.41mmHg. 7. Trace/mild (physiologic) pulmonic regurgitation. 8. The aortic root, ascending aorta and aortic arch are normal. 9. The inferior vena cava is mildly dilated. 10. Echo free space may represent effusion or a pericardial fat pad. 11. This was a technically adequate study. 12. There is moderate concentric left ventricular hypertrophy. 13. Overall left ventricular systolic function is normal with, an EF between 55 - 60 %. 14. The right ventricle is normal in size. 15. Normal LA size by volume 22+/-6 ml/m2. 16. The right atrium is normal in size. 17. Aortic valve is trileaflet and is mildly thickened. 18. The mitral valve leaflets are mild to moderately thickened. [employer]ER: Mayo Velásquez RDCS
[2016-06-09] MEDS: PANTOPRAZOLE 40 MG/10 ML VIAL IVP SCH (11:13)
[2016-06-09 12:16] LABS: Glucose,Whole Blood 379 mg/dL (75-99)
[2016-06-09 17:39] LABS: Glucose,Whole Blood 442 mg/dL (75-99)
--- NOTE | 2016-06-09 17:41 | P.PN ---
Subjective Principal diagnosis: Altered mental status, respiratory failure, transient atrial fibrillation and possible aspiration pneumonia. This 75-year-old female who was admitted to the hospital with altered mental status and respiratory difficulties. Her subsequent course was complicated by cardiopulmonary arrest and transient atrial fibrillation. Chest x-ray showed bilateral infiltrates and effusions. It's possible that patient might have had aspiration pneumonia. Concomitant CHF cannot be excluded. Patient responded to Lasix very well yesterday. Her rhythm is more stable today and she is in sinus rhythm. Her potassium down to 5.2. Her echocardiogram showed normal LV function. Additional dose of Lasix is being given today. Patient had a computed tomography scan of the brain which did not reveal any acute pathology. At this point we we will continue ventilatory support. Evaluation is being done for possible anoxic encephalopathy. Her creatinine and potassium is slightly better today Objective - Vital Signs Vital signs: Vital Signs Temp 99.3 F 06/09/16 08:00 Pulse 98 06/09/16 15:42 Resp 22 06/09/16 12:00 BP 99/48 06/09/16 15:00 Pulse Ox 96 06/09/16 15:00 Intake & Output 06/08/16 06/09/16 06/09/16 18:59 06:59 18:59 Intake Total 3175 2093.298 1704 Output Total 228 575 940 Balance 2947 1518.298 764 Weight 135.4 kg Intake: IV 1375 1125 Sodium Chloride 0.9% 1, 1375 1125 000 ml @ 125 mls/hr IV . Q8H MARY Rx#:[id number] Intake, IV Titration 3175 308.298 100 Amount Norepinephrin 4 mg-0.9% 35.25 Ns Pmx 4 mg In 250 ml @ Titrate IV .Q0M MARY Rx#: [id number] Piperacillin-Tazobactam 3 50 .375 gm In Dextrose/Water 1 50ml.bag @ 12.5 mls/hr IVPB Q12HR MARY Rx#: [id number] Propofol 500 mg In Empty 50 148.048 50 Bag 1 bag @ Titrate IV . Q0M MARY Rx#:[id number] Sodium Chloride 0.9% 1, 3125 125 000 ml @ 125 mls/hr IV . Q8H MARY Rx#:[id number] Tube Feeding 380 479 Other 30 Output: Urine 228 575 940 Other: Voiding Method Indwelling Catheter Indwelling Catheter Indwelling Catheter ABP, PAP, CO, CI - Last Documented Arterial Blood Pressure 121/104 - Labs CBC & Chem 7: 06/09/16 03:50 06/09/16 03:50 Labs: Abnormal Lab Results - Last 24 Hours (Table) 06/08/16 06/08/16 06/08/16 Range/Units 06:52 17:49 19:57 RBC (3.80-5.40) m/uL Hgb (11.4-16.0) gm/dL Hct (34.0-46.0) % Plt Count (150-450) k/uL Lymphocytes # (1.0-4.8) k/uL ABG pO2 (83-108) mmHg ABG O2 Saturation (94-97) % Potassium (3.5-5.1) mmol/L Chloride (98-107) mmol/L BUN (7-17) mg/dL Creatinine (0.52-1.04) mg/dL Glucose (74-99) mg/dL POC Glucose (mg/dL) 277 H 268 H (75-99) mg/dL Albumin (PEP) 3.04 L (3.80-4.90) g/dL Beta Globulins 1.42 H (0.60-1.30) g/dL Gamma Globulins 1.53 H (0.70-1.50) g/dL PTH Intact 506.2 H (14.0-72.0) pg/mL 06/08/16 06/09/16 06/09/16 Range/Units 23:57 03:50 03:50 RBC 3.37 L (3.80-5.40) m/uL Hgb 9.7 L (11.4-16.0) gm/dL Hct 30.1 L (34.0-46.0) % Plt Count 96 L D (150-450) k/uL Lymphocytes # 0.7 L (1.0-4.8) k/uL ABG pO2 (83-108) mmHg ABG O2 Saturation (94-97) % Potassium 5.2 H (3.5-5.1) mmol/L Chloride 109 H (98-107) mmol/L BUN 57 H (7-17) mg/dL Creatinine 2.40 H (0.52-1.04) mg/dL Glucose 300 H (74-99) mg/dL POC Glucose (mg/dL) 300 H (75-99) mg/dL Albumin (PEP) (3.80-4.90) g/dL Beta Globulins (0.60-1.30) g/dL Gamma Globulins (0.70-1.50) g/dL PTH Intact (14.0-72.0) pg/mL 06/09/16 06/09/16 06/09/16 Range/Units 04:15 05:47 07:42 RBC (3.80-5.40) m/uL Hgb (11.4-16.0) gm/dL Hct (34.0-46.0) % Plt Count (150-450) k/uL Lymphocytes # (1.0-4.8) k/uL ABG pO2 114 H (83-108) mmHg ABG O2 Saturation 98.0 H (94-97) % Potassium (3.5-5.1) mmol/L Chloride (98-107) mmol/L BUN (7-17) mg/dL Creatinine (0.52-1.04) mg/dL Glucose (74-99) mg/dL POC Glucose (mg/dL) 315 H 301 H (75-99) mg/dL Albumin (PEP) (3.80-4.90) g/dL Beta Globulins (0.60-1.30) g/dL Gamma Globulins (0.70-1.50) g/dL PTH Intact (14.0-72.0) pg/mL 06/09/16 Range/Units 12:15 RBC (3.80-5.40) m/uL Hgb (11.4-16.0) gm/dL Hct (34.0-46.0) % Plt Count (150-450) k/uL Lymphocytes # (1.0-4.8) k/uL ABG pO2 (83-108) mmHg ABG O2 Saturation (94-97) % Potassium (3.5-5.1) mmol/L Chloride (98-107) mmol/L BUN (7-17) mg/dL Creatinine (0.52-1.04) mg/dL Glucose (74-99) mg/dL POC Glucose (mg/dL) 379 H (75-99) mg/dL Albumin (PEP) (3.80-4.90) g/dL Beta Globulins (0.60-1.30) g/dL Gamma Globulins (0.70-1.50) g/dL PTH Intact (14.0-72.0) pg/mL Microbiology - Last 24 Hours (Table) 06/08/16 09:30 Gram Stain - Preliminary Sputum Sputum Culture - Preliminary Assessment and Plan (1) Cardiopulmonary arrest Status: Acute (2) Acute exacerbation of chronic obstructive airways disease Status: Acute (3) Altered mental status Status: Acute (4) Atrial fibrillation Status: Acute (5) Multifocal atrial tachycardia Status: Acute (6) AV block Status: Acute Plan: Patient's hemodynamic status seemed to be stable. Cardiac arrhythmias is stable and maintaining sinus rhythm. Patient had transient atrial fibrillation which is acute. Echo Cardigan showed normal LV function. Being evaluated for anoxic encephalopathy.
[2016-06-09] MEDS ORDERED: INSULIN REGULAR BOLUS (FROM DRIP BAG) IV PRN (19:17)
[2016-06-09 20:48] LABS: Glucose,Whole Blood 416 mg/dL (75-99)
[2016-06-09] MEDS: INSULIN REGULAR 100 UNIT in SODIUM CHLORIDE 0.9% 100 ML IV SCH ×2 (20:49→23:37)
[2016-06-09 21:41] LABS: Glucose,Whole Blood 414 mg/dL (75-99)
[2016-06-09 22:16] LABS: Glucose,Whole Blood 437 mg/dL (75-99)
[2016-06-09 23:18] LABS: Glucose,Whole Blood 352 mg/dL (75-99)
[2016-06-10] MEDS: NOREPINEPHRIN 4 MG-0.9% NS PMX 4 MG/250 ML ML IV SCH ×2 (00:18→06:09)
[2016-06-10 00:20] LABS: Glucose,Whole Blood 299 mg/dL (75-99)
[2016-06-10] MEDS: PROPOFOL 500 MG in EMPTY BAG 1 BAG IV SCH ×5 (00:22→14:06)
[2016-06-10] MEDS: SODIUM CHLORIDE 0.9% 1,000 ML IV SCH ×3 (00:23→17:36)
[2016-06-10] MEDS: HEPARIN SODIUM,PORCINE 5,000 UNIT/ML 1 ML VIAL SQ SCH (00:24)
[2016-06-10] MEDS: DILTIAZEM 125 MG in SODIUM CHLORIDE 0.9% 100 ML IV SCH ×2 (00:24→16:52)
[2016-06-10] MEDS: methylPREDNISolone SOD SUCCI 125 MG/2 ML VIAL IV SCH ×4 (00:24→17:35)
[2016-06-10 01:08] LABS: Glucose,Whole Blood 306 mg/dL (75-99)
[2016-06-10 02:10] LABS: Glucose,Whole Blood 258 mg/dL (75-99)
[2016-06-10 03:08] LABS: Glucose,Whole Blood 234 mg/dL (75-99)
[2016-06-10] MEDS: LEVALBUTEROL NEB (CONC) 1.25 MG/0.5 ML AMP INHALATION SCH ×6 (03:18→23:13)
[2016-06-10] MEDS: IPRATROPIUM 0.5 MG/2.5 ML NEBU INHALATION SCH ×6 (03:18→23:13)
[2016-06-10] MEDS: INSULIN REGULAR 100 UNIT in SODIUM CHLORIDE 0.9% 100 ML IV SCH ×4 (03:22→20:16)
[2016-06-10 04:29] LABS: Glucose,Whole Blood 231 mg/dL (75-99)
[2016-06-10 04:31] LABS: Appearance,Urine Cloudy (Clear); Bacteria,Urine Few /hpf; Bilirubin,Urine Negative (Negative); Glucose,Urine (UA) Negative (Negative); Ketones,Urine Negative (Negative); Leukocyte Esterase,Urine Small (Negative); Mucus,Urine Rare /hpf; Nitrite,Urine Negative (Negative); PH, Urine 5.5 (5.0-8.0); Particle Count 3639; Protein,Urine 1+ (Negative); RBC,Urine 83 /hpf (0-5); Specific Gravity,Urine 1.014 (1.001-1.035); Squamous Epithelial Cell,Urine <1 /hpf (0-4); UA Billing (MACRO vs. MICRO) MICRO; Urobilinogen,Urine <2.0 mg/dL (<2.0); WBC,Urine 17 /hpf (0-5)
[2016-06-10 04:58] LABS: Basophils % (A) 0 %; CH 27.5; CHCM 30.6; Eosinophils % (A) 0 %; HGB 11.6 gm/dL (11.4-16.0); Hypochromasia Moderate; Luc # (Auto) 0.13; Luc % (Auto) 1; Lymphocytes # (A) 0.6 k/uL (1.0-4.8); Lymphocytes % (A) 5 %; MCH 27.7 pg (25.0-35.0); MCHC 30.6 g/dL (31.0-37.0); MCV 90.3 fL (80.0-100.0); Mean Platelet Volume 8.9; Monocytes # (A) 0.6 k/uL (0-1.0); Monocytes % (A) 6 %; Neutrophils # (A) 9.8 k/uL (1.3-7.7); Neutrophils % (A) 88 %; RDW 15.1 % (11.5-15.5); WBC 11.2 k/uL (3.8-10.6); WBC (Perox) 11.79
[2016-06-10 05:06] LABS: INR 1.2 (<1.1); Prothrombin Time 12.2 sec (9.0-12.0)
[2016-06-10 05:12] LABS: Calcium 10.8 mg/dL (8.4-10.2); Magnesium 2.2 mg/dL (1.6-2.3); Phosphorous 2.3 mg/dL (2.5-4.5); Potassium 4.4 mmol/L (3.5-5.1)
[2016-06-10 05:13] LABS: Glucose,Whole Blood 202 mg/dL (75-99)
[2016-06-10 05:23] LABS: ABG Base Excess -4.1 mmol/L; ABG HCO3 18 mmol/L (21-25); ABG PCO2 23 mmHg (35-45); ABG PH 7.52 (7.35-7.45); ABG PO2 98 mmHg (83-108); ABG TCO2 19 mmol/L (19-24)
[2016-06-10 05:44] LABS: Partial Thromboplastin Time 19.6 sec (22.0-30.0)
[2016-06-10 06:09] LABS: Glucose,Whole Blood 206 mg/dL (75-99)
[2016-06-10] MEDS: LEVOTHYROXINE 125 MCG TAB PO SCH (06:11)
[2016-06-10] MEDS ORDERED: SODIUM PHOSPHATE 10 MMOL in SODIUM CHLORIDE 0.9% 250 ML IVPB ONE (07:00)
[2016-06-10 07:23] LABS: Glucose,Whole Blood 184 mg/dL (75-99)
[2016-06-10] MEDS: BUDESONIDE 1 MG/2 ML NEBU INHALATION SCH ×2 (07:28→19:13)
[2016-06-10] MEDS: FORMOTEROL FUMARATE 20 MCG/2 ML NEBU INHALATION SCH ×2 (07:29→19:13)
[2016-06-10] MEDS ORDERED: MD COMMUNICATION TO PHARMACY 1 EACH MISC PO STA (07:53)
--- NOTE | 2016-06-10 07:56 | PN ---
CHIEF COMPLAINT: Re-evaluation. HISTORY OF PRESENT ILLNESS: This is a 75-year-old female who was admitted to the hospital with some lethargy. The patient's general condition remained reasonably well until about 6:00 in the morning. The patient did have a significant bradycardia and subsequent cardiopulmonary arrest. The patient ( ). She is unresponsive. Per nursing, no reported fever or chills. Vitals remained stable, oxygenation has been adequate on 50% FiO2. The patient; however, still neurologically does not seem to be much responsive. CAT scan of the brain was unremarkable. Rhythm has remained stable. Initial atrial fibrillation and multifocal tachycardias. Urine output has been adequate. Patient on tube feedings. Blood sugars are elevated requiring insulin. PHYSICAL EXAMINATION: A 75-year-old at present on a ventilator, in no distress. VITAL SIGNS: Temperature 99.3, pulse 80, blood pressure 107/47, pulse ox of 100%. HEENT: Normocephalic. Pupils are dilated, midway with some reaction. Oral cavity has an ET tube, feeding tube. CHEST: Decreased air flow right base. CARDIAC: Distant heart sounds. S1, S2 with no gallops. ( ) 2/6 left sternal border. ABDOMEN: Obese. Bowel sounds active. Extremities reveal no edema. Neurologically unresponsive. LABORATORY ASSESSMENT: Hemoglobin 9.7, platelet count 96,000, pH is 7.3, pCO2 of 38, pO2 of 114, sodium 140, potassium 5.2, chloride 109, CO2 count at 22, BUN 57, creatinine 2.4, calcium 9.9. ASSESSMENT: 1. Encephalopathy, possibly anoxic. 2. Status post cardiopulmonary arrest. 3. Acute respiratory failure. 4. Resolved atrial fibrillation/multifocal atrial tachycardia. 5. Diabetes mellitus with elevated blood sugars. 6. Obesity. 7. Acute on chronic renal failure. PLAN: Continue present medical regimen. The patient's condition reveals probably poor prognosis. Will have an EEG done. Neurologic to evaluate. Will discuss with the patient's family. Prognosis remains poor.
[2016-06-10 07:59] LABS: Glucose,Whole Blood 178 mg/dL (75-99)
--- NOTE | 2016-06-10 08:21 | XR ---
EXAMINATION TYPE: XR chest 1V portable DATE OF EXAM: 06/10/2016 7:04 AM Comparison: 06/09/2016 Clinical History: 75 year-old female tube placement, ICU follow-up Findings: ET tube remains satisfactory. NG tube courses below the diaphragm. Heart remains mildly enlarged. Atherosclerotic arch calcifications. Diffuse interstitial prominence s imilar to minimally improved from prior. Small to moderate left pleural effusion persists with patchy bibasilar opacities. Normal variant azygos fissure. Impression: 1. Stable to minimally improved CHF with pulmonary vascular congestion. 2. Stable small to moderate left effusion with bibasilar areas of consolidation and/or atelectasis.
--- NOTE | 2016-06-10 08:27 | CONS ---
DATE OF CONSULTATION: 06/09/2016 CHIEF COMPLAINT: Unresponsiveness. HISTORY OF PRESENT ILLNESS: The patient is a 75-year-old female who is being evaluated today on 06/09/16 by the office service per the request of Dr. Montoya for unresponsiveness. The patient was brought into [facility] Emergency Room with complaints of shortness of breath and confusion. In the emergency room, she was not noticed to be having any respiratory distress or any kind of an infection according to the chart. A CT scan of the brain was done, which showed small vessel ischemic changes. Her BUN and creatinine were elevated at 2.4 respectively. Her calcium was elevated at 11.2. The patient was given IV hydration and she did improve according to the chart. She was admitted to the medical floor on telemetry. It appears that the patient had significant worsening and developed respiratory failure. It was not noticed until the patient had bradycardia and the A team was called. According to the nursing staff, the patient's was blue when they arrived to the bed. The patient was immediately intubated and transferred to the intensive care unit. Today, her sedation was weaned off early this morning, but the patient continues to be unresponsive and a neurology consultation was obtained. A repeat CT scan of the brain was done, which showed no changes from the previous study. She continues to have renal insufficiency. A chest x-ray was done, which showed bibasilar infiltrates. Her CBC today showed anemia with a hemoglobin of 9.7 and hematocrit of 30%. She also has thrombocytopenia at 96,000. Her urinalysis was normal. I did review her EEG, which showed moderate to severe encephalopathy. No seizure-like activity was seen. At the time of my evaluation, the patient is opening her eyes at times, which is an improvement from earlier today. PAST MEDICAL HISTORY: Obstructive jaundice, diabetes, peripheral arterial disease, neuropathy, hypertension, gastroesophageal reflux disease, arthritis, history of appendectomy, tonsillectomy, ERCP, cholecystectomy, hysterectomy, left knee surgery. SOCIAL HISTORY: There is no history of any tobacco, alcohol or drug use. FAMILY HISTORY: Positive for diabetes and heart disease. HOME MEDICATIONS: Reviewed in the chart. ALLERGIES: CODEINE and IV DYE. REVIEW OF SYSTEMS: Unable to obtain as the patient is intubated and unresponsive. PHYSICAL EXAM: Vital signs show a temperature of 99.3, pulse 86, respirations 20, blood pressure 81/38. GENERAL APPEARANCE: The patient is a mildly obese, elderly female who is intubated. HEENT: Normocephalic, atraumatic. No obvious facial asymmetry is seen. Endotracheal tube is intact. Neck is supple with no masses felt. CARDIOVASCULAR: Regular rate and rhythm. ABDOMEN: Nondistended, nontender. Extremities showed edema with no clubbing seen. NEUROLOGICAL EXAM: The patient does open her eyes spontaneously. She does not follow any verbal commands. She does grimace to painful stimuli in all 4 extremities but she does not withdraw her extremities. Her tone is flaccid. Brainstem reflexes showed intact corneal reflex and oculocephalic reflex. Pupillary reflex is present, but sluggish. No seizure-like activity is seen. No obvious facial asymmetry is noticed on cranial nerve testing. IMPRESSION: 1. Acute multifactorial encephalopathy. 2. Anoxic brain injury. 3. Renal insufficiency. 4. Pneumonia. 5. Anemia. 6. Thrombocytopenia. RECOMMENDATIONS: The patient does appear to have suffered an anoxic brain injury given the history presented above. I did review her EEG, which did show evidence of moderate to severe encephalopathy. The patient has had some improvement today as she is grimacing to painful stimuli and she is opening her eyes. She has been off of sedation for approximately 10 hours at the time of my evaluation. The patient also has infectious and metabolic causes for worsening her encephalopathy. I do recommend continuing IV hydration and antibiotic therapy. Her CT scan of the brain was reviewed, which showed no acute intracranial abnormalities. The patient will be re-evaluated in 24 hours to get a better picture for her prognosis. At this time, prognosis is quite guarded. Continue supportive care. Continue neurologic checks. I will continue to follow with you. Further recommendations to follow. Thank you for allowing me to participate in the care of your patient. If you have any questions, please feel free to contact me.
[2016-06-10] MEDS: CHLORHEXIDINE GLUCONATE 15 ML CUP MUCOUS MEM SCH ×2 (08:34→21:12)
[2016-06-10] MEDS: ENOXAPARIN 150 MG/ML SYRINGE SQ SCH (08:34)
[2016-06-10] MEDS: CYANOCOBALAMIN 500 MCG TAB PO SCH (08:34)
[2016-06-10] MEDS: FLUoxetine HCL 20 MG CAP PO SCH (08:34)
[2016-06-10] MEDS: PANTOPRAZOLE 40 MG/10 ML VIAL IVP SCH (08:34)
[2016-06-10] MEDS: ASPIRIN 325 MG TAB PO SCH (08:34)
[2016-06-10] MEDS: PIPERACILLIN-TAZOBACTAM 3.375 GM in DEXTROSE/WATER 1 50ML.BAG IVPB SCH ×2 (08:36→21:12)
[2016-06-10 09:20] LABS: Glucose,Whole Blood 147 mg/dL (75-99)
--- NOTE | 2016-06-10 09:42 | EEG ---
DATE OF SERVICE: 06/09/2016 INDICATIONS FOR EXAMINATION: Unresponsiveness, status post respiratory arrest. AGE: 75Y DESCRIPTION OF THE PROCEDURE: This EEG was performed using a 21-channel digital electroencephalograph, following the international 10 to 20 system. DESCRIPTION OF THE RECORDING: From the beginning of the tracing, and with the patient's eyes closed, the background rhythm was mostly consisting of 4 Hz theta frequency in the posterior occipital leads. Occasional slowing into the delta range is seen. Rare movement artifacts are seen. Photic stimulation was performed with no driving response seen. No pathological waves were elicited. Hyperventilation was not performed. No epileptiform discharges were seen. Her EKG lead showed a regular rate and rhythm. INTERPRETATION: This EEG is abnormal due to the presence of generalized slowing of the background rhythm, mostly in the theta range and occasionally into the delta range. This is consistent with moderate to severe encephalopathy. No epileptiform discharges were seen. The absence of epileptiform discharges does not rule out the diagnosis of epilepsy, therefore, clinical correlation is recommended.
[2016-06-10] MEDS ORDERED: CISATRACURIUM 2 MG/ML 5 ML VIAL IV ONE (09:55)
--- NOTE | 2016-06-10 10:08 | P.PN ---
Subjective Principal diagnosis: This is a 75-year-old female who initially presented to the emergency department on June 07 shortness of breath. She apparently had a cardiopulmonary arrest on the sixth floor and she was transferred here yesterday. She was intubated on the sixth floor during the cardiopulmonary arrest. The circumstances of her rest are not known. I suspect she had worsening hypercapnic respiratory failure. She apparently does have a history of severe COPD. Anyway she's currently here in the ICU on the ventilator. Yesterday we put an art line in her. Today's of vent settings include the assist control mode rate of 24 a tidal volume of 400 and FiO2 of 50% to be dropped to 40% and a PEEP of 5. Blood gases show a PaO2 of 114 PaCO2 of 38 and a pH of 7.38. The patient's on normal saline at 1 25 mL an hour propofol at 20 mics per kilogram per minute and vital high protein at a rate of 40 with a goal of 57. She was admitted to the ICU on the and had her cardiopulmonary arrest on the . The patient is seen again today 06/10/2016 in the intensive care unit. She remains intubated and on the mechanical ventilator. Her current settings are assist-control 24, tidal volume 400, FiO2 40% and a PEEP of 5. Morning blood gases reveal a P O2 of 98, pCO2 of 23 and a pH of 7.52. She did have issues with atrial fibrillation with rapid ventricular response and heart rate in the 130s. She is now on a Cardizem drip at 5 mg per hour. 0.9 normal saline at 125 mL per hour. Diprovan at 15 mcg/m insulin drip at 38 units per hour, levophed at 10 mcg/m. She is on tube feedings of Asif HP 57 mL per hour which is her goal. She is also had issues with hypotension and received 2-1/2 L of fluid boluses. Her chest x-ray today shows some improvement in congestive heart failure, there is small left pleural effusions bibasilar atelectasis left greater than right. Current temp 99.4. Current white count 11.2. Blood cultures reveal no growth to date. Urine and sputum cultures reveal no growth. Objective - Vital Signs Vital signs: Vital Signs Temp 99.4 F 06/10/16 08:00 Pulse 150 H 06/10/16 09:30 Resp 24 04/20/17 09:30 BP 94/59 06/10/16 09:30 Pulse Ox 98 06/10/16 09:30 Intake & Output 06/09/16 06/10/16 06/10/16 18:59 06:59 18:59 Intake Total 2364 5481.289 2025.384 Output Total 1740 1083 285 Balance 624 4398.289 1740.384 Weight 143.9 kg Intake: IV 1500 3815.0 1515.0 Diltiazem 125 mg In 40 15 Sodium Chloride 0.9% 100 ml @ 5 MG/HR 5 mls/hr IV .Q24H [facility] Rx#:[id number] Piperacillin-Tazobactam 3 50.0 25.0 .375 gm In Dextrose/Water 1 50ml.bag @ 12.5 mls/hr IVPB Q12HR [facility] Rx#: [id number] Sodium Chloride 0.9% 1, 1500 3725 1225 000 ml @ 125 mls/hr IV . Q8H [facility] Rx#:[id number] Sodium Phosphate 10 mmol 250 In Sodium Chloride 0.9% 250 ml @ 125 mls/hr IVPB ONCE ONE Rx#:[id number] Intake, IV Titration 100 649.289 225.384 Amount Insulin Regular 100 unit 288.927 101 In Sodium Chloride 0.9% 100 ml @ Per Protocol IV .Q0M [facility] Rx#:[id number] Norepinephrin 4 mg-0.9% 238.250 108.00 Ns Pmx 4 mg In 250 ml @ Titrate IV .Q0M [facility] Rx#: [id number] Piperacillin-Tazobactam 3 50 .375 gm In Dextrose/Water 1 50ml.bag @ 12.5 mls/hr IVPB Q12HR [facility] Rx#: [id number] Propofol 500 mg In Empty 50 122.112 16.384 Bag 1 bag @ Titrate IV . Q0M [facility] Rx#:[id number] Tube Feeding 764 912 285 Other 105 Output: Urine 1740 1083 285 Other: Voiding Method Indwelling Catheter Indwelling Catheter Indwelling Catheter ABP, PAP, CO, CI - Last Documented Arterial Blood Pressure 113/102 - Exam She is currently sedated. Oral gastric tube and endotracheal tube are noted. HEENT examination is grossly unremarkable. Mucous membranes are moist. Neck supple. Full range of motion. No adenopathy or thyromegaly. Cardio vascular examination reveals irregular rate and rhythm. Tachycardic in the 130s. Lungs reveal diminished breath sounds. A few scattered rhonchi. Some bibasilar crackles. Abdomen is obese. Bowel sounds are heard. Extremities are intact. Slight edema noted. Neurologic examination cannot be adequately performed Skin is without rash or lesions. - Labs CBC & Chem 7: 06/10/16 04:45 06/10/16 04:45 Labs: Abnormal Lab Results - Last 24 Hours (Table) 06/08/16 06/09/16 06/09/16 Range/Units 06:52 12:15 17:36 WBC (3.8-10.6) k/uL MCHC (31.0-37.0) g/dL Plt Count (150-450) k/uL Neutrophils # (1.3-7.7) k/uL Lymphocytes # (1.0-4.8) k/uL PT (9.0-12.0) sec APTT (22.0-30.0) sec ABG pH (7.35-7.45) ABG pCO2 (35-45) mmHg ABG HCO3 (21-25) mmol/L ABG O2 Saturation (94-97) % Chloride (98-107) mmol/L Carbon Dioxide (22-30) mmol/L BUN (7-17) mg/dL Creatinine (0.52-1.04) mg/dL Glucose (74-99) mg/dL POC Glucose (mg/dL) 379 H 442 H (75-99) mg/dL Plasma Lactic Acid Cedrick (0.7-2.0) mmol/L Calcium (8.4-10.2) mg/dL Phosphorus (2.5-4.5) mg/dL Albumin (PEP) 3.04 L (3.80-4.90) g/dL Beta Globulins 1.42 H (0.60-1.30) g/dL Gamma Globulins 1.53 H (0.70-1.50) g/dL PTH Intact 506.2 H (14.0-72.0) pg/mL Urine Appearance (Clear) Urine Protein (Negative) Urine Blood (Negative) Ur Leukocyte Esterase (Negative) Urine RBC (0-5) /hpf Urine WBC (0-5) /hpf Urine Bacteria (None) /hpf Urine Mucus (None) /hpf Urine Yeast (Budding) (None) /hpf 06/09/16 06/09/16 06/09/16 Range/Units 20:47 21:39 22:14 WBC (3.8-10.6) k/uL MCHC (31.0-37.0) g/dL Plt Count (150-450) k/uL Neutrophils # (1.3-7.7) k/uL Lymphocytes # (1.0-4.8) k/uL PT (9.0-12.0) sec APTT (22.0-30.0) sec ABG pH (7.35-7.45) ABG pCO2 (35-45) mmHg ABG HCO3 (21-25) mmol/L ABG O2 Saturation (94-97) % Chloride (98-107) mmol/L Carbon Dioxide (22-30) mmol/L BUN (7-17) mg/dL Creatinine (0.52-1.04) mg/dL Glucose (74-99) mg/dL POC Glucose (mg/dL) 416 H 414 H 437 H (75-99) mg/dL Plasma Lactic Acid Cedrick (0.7-2.0) mmol/L Calcium (8.4-10.2) mg/dL Phosphorus (2.5-4.5) mg/dL Albumin (PEP) (3.80-4.90) g/dL Beta Globulins (0.60-1.30) g/dL Gamma Globulins (0.70-1.50) g/dL PTH Intact (14.0-72.0) pg/mL Urine Appearance (Clear) Urine Protein (Negative) Urine Blood (Negative) Ur Leukocyte Esterase (Negative) Urine RBC (0-5) /hpf Urine WBC (0-5) /hpf Urine Bacteria (None) /hpf Urine Mucus (None) /hpf Urine Yeast (Budding) (None) /hpf 06/09/16 06/10/16 06/10/16 Range/Units 23:17 00:19 01:07 WBC (3.8-10.6) k/uL MCHC (31.0-37.0) g/dL Plt Count (150-450) k/uL Neutrophils # (1.3-7.7) k/uL Lymphocytes # (1.0-4.8) k/uL PT (9.0-12.0) sec APTT (22.0-30.0) sec ABG pH (7.35-7.45) ABG pCO2 (35-45) mmHg ABG HCO3 (21-25) mmol/L ABG O2 Saturation (94-97) % Chloride (98-107) mmol/L Carbon Dioxide (22-30) mmol/L BUN (7-17) mg/dL Creatinine (0.52-1.04) mg/dL Glucose (74-99) mg/dL POC Glucose (mg/dL) 352 H 299 H 306 H (75-99) mg/dL Plasma Lactic Acid Cedrick (0.7-2.0) mmol/L Calcium (8.4-10.2) mg/dL Phosphorus (2.5-4.5) mg/dL Albumin (PEP) (3.80-4.90) g/dL Beta Globulins (0.60-1.30) g/dL Gamma Globulins (0.70-1.50) g/dL PTH Intact (14.0-72.0) pg/mL Urine Appearance (Clear) Urine Protein (Negative) Urine Blood (Negative) Ur Leukocyte Esterase (Negative) Urine RBC (0-5) /hpf Urine WBC (0-5) /hpf Urine Bacteria (None) /hpf Urine Mucus (None) /hpf Urine Yeast (Budding) (None) /hpf 06/10/16 06/10/16 06/10/16 Range/Units 02:08 03:06 04:00 WBC (3.8-10.6) k/uL MCHC (31.0-37.0) g/dL Plt Count (150-450) k/uL Neutrophils # (1.3-7.7) k/uL Lymphocytes # (1.0-4.8) k/uL PT (9.0-12.0) sec APTT (22.0-30.0) sec ABG pH (7.35-7.45) ABG pCO2 (35-45) mmHg ABG HCO3 (21-25) mmol/L ABG O2 Saturation (94-97) % Chloride (98-107) mmol/L Carbon Dioxide (22-30) mmol/L BUN (7-17) mg/dL Creatinine (0.52-1.04) mg/dL Glucose (74-99) mg/dL POC Glucose (mg/dL) 258 H 234 H (75-99) mg/dL Plasma Lactic Acid Cedrick (0.7-2.0) mmol/L Calcium (8.4-10.2) mg/dL Phosphorus (2.5-4.5) mg/dL Albumin (PEP) (3.80-4.90) g/dL Beta Globulins (0.60-1.30) g/dL Gamma Globulins (0.70-1.50) g/dL PTH Intact (14.0-72.0) pg/mL Urine Appearance Cloudy H (Clear) Urine Protein 1+ H (Negative) Urine Blood Small H (Negative) Ur Leukocyte Esterase Small H (Negative) Urine RBC 83 H (0-5) /hpf Urine WBC 17 H (0-5) /hpf Urine Bacteria Few H (None) /hpf Urine Mucus Rare H (None) /hpf Urine Yeast (Budding) Many H (None) /hpf 06/10/16 06/10/16 06/10/16 Range/Units 04:27 04:36 04:36 WBC (3.8-10.6) k/uL MCHC (31.0-37.0) g/dL Plt Count (150-450) k/uL Neutrophils # (1.3-7.7) k/uL Lymphocytes # (1.0-4.8) k/uL PT 12.2 H (9.0-12.0) sec APTT 19.6 L (22.0-30.0) sec ABG pH (7.35-7.45) ABG pCO2 (35-45) mmHg ABG HCO3 (21-25) mmol/L ABG O2 Saturation (94-97) % Chloride (98-107) mmol/L Carbon Dioxide (22-30) mmol/L BUN (7-17) mg/dL Creatinine (0.52-1.04) mg/dL Glucose (74-99) mg/dL POC Glucose (mg/dL) 231 H (75-99) mg/dL Plasma Lactic Acid Cedrick 3.5 H* (0.7-2.0) mmol/L Calcium (8.4-10.2) mg/dL Phosphorus (2.5-4.5) mg/dL Albumin (PEP) (3.80-4.90) g/dL Beta Globulins (0.60-1.30) g/dL Gamma Globulins (0.70-1.50) g/dL PTH Intact (14.0-72.0) pg/mL Urine Appearance (Clear) Urine Protein (Negative) Urine Blood (Negative) Ur Leukocyte Esterase (Negative) Urine RBC (0-5) /hpf Urine WBC (0-5) /hpf Urine Bacteria (None) /hpf Urine Mucus (None) /hpf Urine Yeast (Budding) (None) /hpf 06/10/16 06/10/16 06/10/16 Range/Units 04:45 04:45 04:47 WBC 11.2 H (3.8-10.6) k/uL MCHC 30.6 L (31.0-37.0) g/dL Plt Count 125 L (150-450) k/uL Neutrophils # 9.8 H (1.3-7.7) k/uL Lymphocytes # 0.6 L (1.0-4.8) k/uL PT (9.0-12.0) sec APTT (22.0-30.0) sec ABG pH 7.52 H (7.35-7.45) ABG pCO2 23 L (35-45) mmHg ABG HCO3 18 L (21-25) mmol/L ABG O2 Saturation 99.0 H (94-97) % Chloride 112 H (98-107) mmol/L Carbon Dioxide 19 L (22-30) mmol/L BUN 68 H (7-17) mg/dL Creatinine 2.30 H (0.52-1.04) mg/dL Glucose 244 H (74-99) mg/dL POC Glucose (mg/dL) (75-99) mg/dL Plasma Lactic Acid Cedrick (0.7-2.0) mmol/L Calcium 10.8 H (8.4-10.2) mg/dL Phosphorus 2.3 L (2.5-4.5) mg/dL Albumin (PEP) (3.80-4.90) g/dL Beta Globulins (0.60-1.30) g/dL Gamma Globulins (0.70-1.50) g/dL PTH Intact (14.0-72.0) pg/mL Urine Appearance (Clear) Urine Protein (Negative) Urine Blood (Negative) Ur Leukocyte Esterase (Negative) Urine RBC (0-5) /hpf Urine WBC (0-5) /hpf Urine Bacteria (None) /hpf Urine Mucus (None) /hpf Urine Yeast (Budding) (None) /hpf 06/10/16 06/10/16 06/10/16 Range/Units 05:11 06:08 07:22 WBC (3.8-10.6) k/uL MCHC (31.0-37.0) g/dL Plt Count (150-450) k/uL Neutrophils # (1.3-7.7) k/uL Lymphocytes # (1.0-4.8) k/uL PT (9.0-12.0) sec APTT (22.0-30.0) sec ABG pH (7.35-7.45) ABG pCO2 (35-45) mmHg ABG HCO3 (21-25) mmol/L ABG O2 Saturation (94-97) % Chloride (98-107) mmol/L Carbon Dioxide (22-30) mmol/L BUN (7-17) mg/dL Creatinine (0.52-1.04) mg/dL Glucose (74-99) mg/dL POC Glucose (mg/dL) 202 H 206 H 184 H (75-99) mg/dL Plasma Lactic Acid Cedrick (0.7-2.0) mmol/L Calcium (8.4-10.2) mg/dL Phosphorus (2.5-4.5) mg/dL Albumin (PEP) (3.80-4.90) g/dL Beta Globulins (0.60-1.30) g/dL Gamma Globulins (0.70-1.50) g/dL PTH Intact (14.0-72.0) pg/mL Urine Appearance (Clear) Urine Protein (Negative) Urine Blood (Negative) Ur Leukocyte Esterase (Negative) Urine RBC (0-5) /hpf Urine WBC (0-5) /hpf Urine Bacteria (None) /hpf Urine Mucus (None) /hpf Urine Yeast (Budding) (None) /hpf 06/10/16 06/10/16 Range/Units 07:58 09:18 WBC (3.8-10.6) k/uL MCHC (31.0-37.0) g/dL Plt Count (150-450) k/uL Neutrophils # (1.3-7.7) k/uL Lymphocytes # (1.0-4.8) k/uL PT (9.0-12.0) sec APTT (22.0-30.0) sec ABG pH (7.35-7.45) ABG pCO2 (35-45) mmHg ABG HCO3 (21-25) mmol/L ABG O2 Saturation (94-97) % Chloride (98-107) mmol/L Carbon Dioxide (22-30) mmol/L BUN (7-17) mg/dL Creatinine (0.52-1.04) mg/dL Glucose (74-99) mg/dL POC Glucose (mg/dL) 178 H 147 H (75-99) mg/dL Plasma Lactic Acid Cedrick (0.7-2.0) mmol/L Calcium (8.4-10.2) mg/dL Phosphorus (2.5-4.5) mg/dL Albumin (PEP) (3.80-4.90) g/dL Beta Globulins (0.60-1.30) g/dL Gamma Globulins (0.70-1.50) g/dL PTH Intact (14.0-72.0) pg/mL Urine Appearance (Clear) Urine Protein (Negative) Urine Blood (Negative) Ur Leukocyte Esterase (Negative) Urine RBC (0-5) /hpf Urine WBC (0-5) /hpf Urine Bacteria (None) /hpf Urine Mucus (None) /hpf Urine Yeast (Budding) (None) /hpf Microbiology - Last 24 Hours (Table) 06/08/16 09:30 Gram Stain - Final Sputum Sputum Culture - Final Assessment and Plan Plan: Assessment and Plan (1) Acute on chronic respiratory failure with hypoxemia Status: Acute (2) Hypoxemic respiratory failure, chronic Status: Acute (3) Acute exacerbation of chronic obstructive airways disease Status: Acute (4) Altered mental status Status: Acute (5) Atrial fibrillation Status: Acute (6) Cardiopulmonary arrest Status: Acute (7) Acute exacerbation of chronic obstructive pulmonary disease (COPD) Status: Acute (8) Morbid obesity with BMI of 40.0-44.9, adult Status: Acute Plan: The patient was seen and evaluated by Dr. Guzmán. Her chest x-ray, ABGs and labs were reviewed. Based on her addition of Cardizem and levo fed throughout the evening we'll go ahead and place a central line and also replace the arterial line that has gone bad through the night. We'll continue her current medications. She remains on antibiotics in the form of Zosyn and we'll continue with bronchodilators every 4 hours, Pulmicort and Perforomist inhalations twice a day. She remains on IV Solu-Medrol. She is on Lovenox for DVT prophylaxis and Protonix for GI prophylaxis. Continue tube feeds. Cardiology is on the case regarding rate control and anticoagulation. Her overall prognosis remains quite guarded and poor based on on the multiple comorbidities. We'll continue to follow and make further recommendations based on her clinical status. Critical care time 38 minutes not including procedures. Time with Patient: Greater than 30
[2016-06-10 10:17] LABS: Glucose,Whole Blood 130 mg/dL (75-99)
[2016-06-10 10:53] LABS: Glucose,Whole Blood 138 mg/dL (75-99)
[2016-06-10 11:21] LABS: Glucose,Whole Blood 144 mg/dL (75-99)
--- NOTE | 2016-06-10 11:30 | XR ---
EXAMINATION TYPE: XR chest 1V portable DATE OF EXAM: 06/10/2016 11:23 AM Comparison: Earlier today Clinical History: 75 year-old female line placement. Findings: Lordotic positioning limiting the evaluation. Heart remains enlarged with continued [id number] left pleural effusion and bibasilar opacities as well as interstitial opacities. ET tube appears sat isfactory. NG tube courses below the diaphragm. Left-sided subclavian CVC tip is seen at least to the level of the mid to lower SVC. Impression: 1. Limited portable examination with lordotic positioning. Correlate for continued CHF with pulmonary vascular congestion, small to moderate left pleural effusion and patchy bibasilar atelectasis and/or infiltrates. 2. Left subclavian CVC tip not well-seen but extending at least to the mid to lower SVC.
[2016-06-10] MEDS ORDERED: NOREPINEPHRIN 16 MG-0.9%NS PMX 16 MG/250 ML ML IV SCH (12:00)
[2016-06-10 12:05] LABS: Glucose,Whole Blood 176 mg/dL (75-99)
[2016-06-10 13:06] LABS: Glucose,Whole Blood 172 mg/dL (75-99)
[2016-06-10 13:41] VITALS: BMI 51.2
[2016-06-10 14:04] LABS: Glucose,Whole Blood 198 mg/dL (75-99)
[2016-06-10] MEDS: ACETAMINOPHEN IV (For NPO) 1,000 MG in EMPTY BAG 1 BAG IVPB PRN (14:44)
[2016-06-10] MEDS ORDERED: DILTIAZEM 125 MG in SODIUM CHLORIDE 0.9% 100 ML IV SCH (14:45)
[2016-06-10 15:08] LABS: Glucose,Whole Blood 231 mg/dL (75-99)
[2016-06-10 15:48] LABS: Glucose,Whole Blood 213 mg/dL (75-99)
[2016-06-10 16:56] LABS: Glucose,Whole Blood 217 mg/dL (75-99)
[2016-06-10 18:10] LABS: Glucose,Whole Blood 210 mg/dL (75-99)
[2016-06-10 19:15] LABS: Glucose,Whole Blood 226 mg/dL (75-99)
[2016-06-10 20:16] LABS: Glucose,Whole Blood 210 mg/dL (75-99)
--- NOTE | 2016-06-10 21:06 | P.PN ---
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 Patient was brought to [facility] emergency room with complaints of shortness of breath and confusion. In the emergency room she was not noticed to be having any respiratory distress or infection. CT scan of the brain was completed. Scan showed small vessel ischemic changes. BUN and creatinine were elevated. Calcium was elevated. Patient was given IV hydration and did improve according to the chart. Patient was admitted the medical floor for telemetry monitoring. Patient had significant worsening and developed respiratory failure. Patient began having bradycardia and the A team was called. On team arrival, patient was blue. Patient was immediately intubated and transferred to the ICU. Attempts to wean the patient off sedation were unsuccessful as the patient continues to be unresponsive. Neurology was consulted. Repeat CT of the brain was done which showed no changes from the previous study. Patient still has renal insufficiency. Chest x-ray was completed which showed bibasilar infiltrates. CBC noted anemia. Patient also has thrombocytopenia. Urinalysis was normal. EEG showed moderate to severe encephalopathy. No seizure-like activity was seen. Patient intermittently will open her eyes but it does not appear to be any persistent manner. Objective - Vital Signs Vital signs: Vital Signs Temp 101.0 F H 06/10/16 16:00 Pulse 137 H 06/10/16 19:17 Resp 26 H 06/10/16 19:00 BP 108/59 06/10/16 19:00 Pulse Ox 99 06/10/16 19:00 Intake & Output 06/10/16 06/10/16 06/11/16 06:59 18:59 06:59 Intake Total 5481.289 3877.752 73.330 Output Total 1083 975 60 Balance 4398.289 2902.752 13.330 Weight 143.9 kg 143.9 kg Intake: IV 3815.0 2650.0 Diltiazem 125 mg In 40 25 Sodium Chloride 0.9% 100 ml @ 5 MG/HR 5 mls/hr IV .Q24H [facility] Rx#:[id number] Piperacillin-Tazobactam 3 50.0 50.0 .375 gm In Dextrose/Water 1 50ml.bag @ 12.5 mls/hr IVPB Q12HR [facility] Rx#: [id number] Sodium Chloride 0.9% 1, 3725 2325 000 ml @ 125 mls/hr IV . Q8H [facility] Rx#:[id number] Sodium Phosphate 10 mmol 250 In Sodium Chloride 0.9% 250 ml @ 125 mls/hr IVPB ONCE ONE Rx#:[id number] Intake, IV Titration 649.289 612.752 16.330 Amount Diltiazem 125 mg In 92.917 Sodium Chloride 0.9% 100 ml @ 5 MG/HR 5 mls/hr IV .Q24H [facility] Rx#:[id number] Insulin Regular 100 unit 288.927 186.076 15.924 In Sodium Chloride 0.9% 100 ml @ Per Protocol IV .Q0M [facility] Rx#:[id number] Norepinephrin 16 mg-0.9% 53.441 0.406 Ns Pmx 16 mg In 250 ml @ Titrate IV .Q0M [facility] Rx#: [id number] Norepinephrin 4 mg-0.9% 238.250 186.75 Ns Pmx 4 mg In 250 ml @ Titrate IV .Q0M [facility] Rx#: [id number] Propofol 500 mg In Empty 122.112 93.568 Bag 1 bag @ Titrate IV . Q0M [facility] Rx#:[id number] Tube Feeding 912 570 57 Other 105 45 Output: Urine 1083 975 60 Other: Voiding Method Indwelling Catheter Indwelling Catheter ABP, PAP, CO, CI - Last Documented Arterial Blood Pressure 136/62 - Exam Constitutional: mildly obese, elderly female, intubated HEENT: NC/AT, no facial asymmetry is seen, endotracheal tube is intact. Neck is supple with no masses felt. Respiratory: patient on a ventilator Cardiac: Regular rate and Rhythm on telemetry monitoring GI: non tender, non distended Musculoskeletal: Rounder And Backer strengths are equal bilaterally 5/5, Lower extremity strengths are equal bilaterally at 5/5. Neurological: does open her eyes spontaneously but not consistently 1 requested or prompted. Does not follow any verbal commands. Does not grimace to painful stimuli in all 4 extremities. Does not withdraw her extremities. Tone is flaccid. Brainstem reflexes showed intact. Corneal reflexes and oculocephalic reflex. Pupillary reflex is present but sluggish. No seizure activity is seen. No obvious facial asymmetry is noticed on cranial nerve testing. Integementary: no rash, no erythema Psychiatric: mood and affect absent - Labs CBC & Chem 7: 06/10/16 04:45 06/10/16 04:45 Labs: Abnormal Lab Results - Last 24 Hours (Table) 06/09/16 06/09/16 06/09/16 Range/Units 20:47 21:39 22:14 WBC (3.8-10.6) k/uL MCHC (31.0-37.0) g/dL Plt Count (150-450) k/uL Neutrophils # (1.3-7.7) k/uL Lymphocytes # (1.0-4.8) k/uL PT (9.0-12.0) sec APTT (22.0-30.0) sec ABG pH (7.35-7.45) ABG pCO2 (35-45) mmHg ABG HCO3 (21-25) mmol/L ABG O2 Saturation (94-97) % Chloride (98-107) mmol/L Carbon Dioxide (22-30) mmol/L BUN (7-17) mg/dL Creatinine (0.52-1.04) mg/dL Glucose (74-99) mg/dL POC Glucose (mg/dL) 416 H 414 H 437 H (75-99) mg/dL Plasma Lactic Acid Cedrick (0.7-2.0) mmol/L Calcium (8.4-10.2) mg/dL Phosphorus (2.5-4.5) mg/dL Urine Appearance (Clear) Urine Protein (Negative) Urine Blood (Negative) Ur Leukocyte Esterase (Negative) Urine RBC (0-5) /hpf Urine WBC (0-5) /hpf Urine Bacteria (None) /hpf Urine Mucus (None) /hpf Urine Yeast (Budding) (None) /hpf 06/09/16 06/10/16 06/10/16 Range/Units 23:17 00:19 01:07 WBC (3.8-10.6) k/uL MCHC (31.0-37.0) g/dL Plt Count (150-450) k/uL Neutrophils # (1.3-7.7) k/uL Lymphocytes # (1.0-4.8) k/uL PT (9.0-12.0) sec APTT (22.0-30.0) sec ABG pH (7.35-7.45) ABG pCO2 (35-45) mmHg ABG HCO3 (21-25) mmol/L ABG O2 Saturation (94-97) % Chloride (98-107) mmol/L Carbon Dioxide (22-30) mmol/L BUN (7-17) mg/dL Creatinine (0.52-1.04) mg/dL Glucose (74-99) mg/dL POC Glucose (mg/dL) 352 H 299 H 306 H (75-99) mg/dL Plasma Lactic Acid Cedrick (0.7-2.0) mmol/L Calcium (8.4-10.2) mg/dL Phosphorus (2.5-4.5) mg/dL Urine Appearance (Clear) Urine Protein (Negative) Urine Blood (Negative) Ur Leukocyte Esterase (Negative) Urine RBC (0-5) /hpf Urine WBC (0-5) /hpf Urine Bacteria (None) /hpf Urine Mucus (None) /hpf Urine Yeast (Budding) (None) /hpf 06/10/16 06/10/16 06/10/16 Range/Units 02:08 03:06 04:00 WBC (3.8-10.6) k/uL MCHC (31.0-37.0) g/dL Plt Count (150-450) k/uL Neutrophils # (1.3-7.7) k/uL Lymphocytes # (1.0-4.8) k/uL PT (9.0-12.0) sec APTT (22.0-30.0) sec ABG pH (7.35-7.45) ABG pCO2 (35-45) mmHg ABG HCO3 (21-25) mmol/L ABG O2 Saturation (94-97) % Chloride (98-107) mmol/L Carbon Dioxide (22-30) mmol/L BUN (7-17) mg/dL Creatinine (0.52-1.04) mg/dL Glucose (74-99) mg/dL POC Glucose (mg/dL) 258 H 234 H (75-99) mg/dL Plasma Lactic Acid Cedrick (0.7-2.0) mmol/L Calcium (8.4-10.2) mg/dL Phosphorus (2.5-4.5) mg/dL Urine Appearance Cloudy H (Clear) Urine Protein 1+ H (Negative) Urine Blood Small H (Negative) Ur Leukocyte Esterase Small H (Negative) Urine RBC 83 H (0-5) /hpf Urine WBC 17 H (0-5) /hpf Urine Bacteria Few H (None) /hpf Urine Mucus Rare H (None) /hpf Urine Yeast (Budding) Many H (None) /hpf 06/10/16 06/10/16 06/10/16 Range/Units 04:27 04:36 04:36 WBC (3.8-10.6) k/uL MCHC (31.0-37.0) g/dL Plt Count (150-450) k/uL Neutrophils # (1.3-7.7) k/uL Lymphocytes # (1.0-4.8) k/uL PT 12.2 H (9.0-12.0) sec APTT 19.6 L (22.0-30.0) sec ABG pH (7.35-7.45) ABG pCO2 (35-45) mmHg ABG HCO3 (21-25) mmol/L ABG O2 Saturation (94-97) % Chloride (98-107) mmol/L Carbon Dioxide (22-30) mmol/L BUN (7-17) mg/dL Creatinine (0.52-1.04) mg/dL Glucose (74-99) mg/dL POC Glucose (mg/dL) 231 H (75-99) mg/dL Plasma Lactic Acid Cedrick 3.5 H* (0.7-2.0) mmol/L Calcium (8.4-10.2) mg/dL Phosphorus (2.5-4.5) mg/dL Urine Appearance (Clear) Urine Protein (Negative) Urine Blood (Negative) Ur Leukocyte Esterase (Negative) Urine RBC (0-5) /hpf Urine WBC (0-5) /hpf Urine Bacteria (None) /hpf Urine Mucus (None) /hpf Urine Yeast (Budding) (None) /hpf 06/10/16 06/10/16 06/10/16 Range/Units 04:45 04:45 04:47 WBC 11.2 H (3.8-10.6) k/uL MCHC 30.6 L (31.0-37.0) g/dL Plt Count 125 L (150-450) k/uL Neutrophils # 9.8 H (1.3-7.7) k/uL Lymphocytes # 0.6 L (1.0-4.8) k/uL PT (9.0-12.0) sec APTT (22.0-30.0) sec ABG pH 7.52 H (7.35-7.45) ABG pCO2 23 L (35-45) mmHg ABG HCO3 18 L (21-25) mmol/L ABG O2 Saturation 99.0 H (94-97) % Chloride 112 H (98-107) mmol/L Carbon Dioxide 19 L (22-30) mmol/L BUN 68 H (7-17) mg/dL Creatinine 2.30 H (0.52-1.04) mg/dL Glucose 244 H (74-99) mg/dL POC Glucose (mg/dL) (75-99) mg/dL Plasma Lactic Acid Cedrick (0.7-2.0) mmol/L Calcium 10.8 H (8.4-10.2) mg/dL Phosphorus 2.3 L (2.5-4.5) mg/dL Urine Appearance (Clear) Urine Protein (Negative) Urine Blood (Negative) Ur Leukocyte Esterase (Negative) Urine RBC (0-5) /hpf Urine WBC (0-5) /hpf Urine Bacteria (None) /hpf Urine Mucus (None) /hpf Urine Yeast (Budding) (None) /hpf 06/10/16 06/10/16 06/10/16 Range/Units 05:11 06:08 07:22 WBC (3.8-10.6) k/uL MCHC (31.0-37.0) g/dL Plt Count (150-450) k/uL Neutrophils # (1.3-7.7) k/uL Lymphocytes # (1.0-4.8) k/uL PT (9.0-12.0) sec APTT (22.0-30.0) sec ABG pH (7.35-7.45) ABG pCO2 (35-45) mmHg ABG HCO3 (21-25) mmol/L ABG O2 Saturation (94-97) % Chloride (98-107) mmol/L Carbon Dioxide (22-30) mmol/L BUN (7-17) mg/dL Creatinine (0.52-1.04) mg/dL Glucose (74-99) mg/dL POC Glucose (mg/dL) 202 H 206 H 184 H (75-99) mg/dL Plasma Lactic Acid Cedrick (0.7-2.0) mmol/L Calcium (8.4-10.2) mg/dL Phosphorus (2.5-4.5) mg/dL Urine Appearance (Clear) Urine Protein (Negative) Urine Blood (Negative) Ur Leukocyte Esterase (Negative) Urine RBC (0-5) /hpf Urine WBC (0-5) /hpf Urine Bacteria (None) /hpf Urine Mucus (None) /hpf Urine Yeast (Budding) (None) /hpf 06/10/16 06/10/16 06/10/16 Range/Units 07:58 09:18 10:14 WBC (3.8-10.6) k/uL MCHC (31.0-37.0) g/dL Plt Count (150-450) k/uL Neutrophils # (1.3-7.7) k/uL Lymphocytes # (1.0-4.8) k/uL PT (9.0-12.0) sec APTT (22.0-30.0) sec ABG pH (7.35-7.45) ABG pCO2 (35-45) mmHg ABG HCO3 (21-25) mmol/L ABG O2 Saturation (94-97) % Chloride (98-107) mmol/L Carbon Dioxide (22-30) mmol/L BUN (7-17) mg/dL Creatinine (0.52-1.04) mg/dL Glucose (74-99) mg/dL POC Glucose (mg/dL) 178 H 147 H 130 H (75-99) mg/dL Plasma Lactic Acid Cedrick (0.7-2.0) mmol/L Calcium (8.4-10.2) mg/dL Phosphorus (2.5-4.5) mg/dL Urine Appearance (Clear) Urine Protein (Negative) Urine Blood (Negative) Ur Leukocyte Esterase (Negative) Urine RBC (0-5) /hpf Urine WBC (0-5) /hpf Urine Bacteria (None) /hpf Urine Mucus (None) /hpf Urine Yeast (Budding) (None) /hpf 06/10/16 06/10/16 06/10/16 Range/Units 10:51 11:20 12:04 WBC (3.8-10.6) k/uL MCHC (31.0-37.0) g/dL Plt Count (150-450) k/uL Neutrophils # (1.3-7.7) k/uL Lymphocytes # (1.0-4.8) k/uL PT (9.0-12.0) sec APTT (22.0-30.0) sec ABG pH (7.35-7.45) ABG pCO2 (35-45) mmHg ABG HCO3 (21-25) mmol/L ABG O2 Saturation (94-97) % Chloride (98-107) mmol/L Carbon Dioxide (22-30) mmol/L BUN (7-17) mg/dL Creatinine (0.52-1.04) mg/dL Glucose (74-99) mg/dL POC Glucose (mg/dL) 138 H 144 H 176 H (75-99) mg/dL Plasma Lactic Acid Cedrick (0.7-2.0) mmol/L Calcium (8.4-10.2) mg/dL Phosphorus (2.5-4.5) mg/dL Urine Appearance (Clear) Urine Protein (Negative) Urine Blood (Negative) Ur Leukocyte Esterase (Negative) Urine RBC (0-5) /hpf Urine WBC (0-5) /hpf Urine Bacteria (None) /hpf Urine Mucus (None) /hpf Urine Yeast (Budding) (None) /hpf 06/10/16 06/10/16 06/10/16 Range/Units 13:04 14:03 15:07 WBC (3.8-10.6) k/uL MCHC (31.0-37.0) g/dL Plt Count (150-450) k/uL Neutrophils # (1.3-7.7) k/uL Lymphocytes # (1.0-4.8) k/uL PT (9.0-12.0) sec APTT (22.0-30.0) sec ABG pH (7.35-7.45) ABG pCO2 (35-45) mmHg ABG HCO3 (21-25) mmol/L ABG O2 Saturation (94-97) % Chloride (98-107) mmol/L Carbon Dioxide (22-30) mmol/L BUN (7-17) mg/dL Creatinine (0.52-1.04) mg/dL Glucose (74-99) mg/dL POC Glucose (mg/dL) 172 H 198 H 231 H (75-99) mg/dL Plasma Lactic Acid Cedrick (0.7-2.0) mmol/L Calcium (8.4-10.2) mg/dL Phosphorus (2.5-4.5) mg/dL Urine Appearance (Clear) Urine Protein (Negative) Urine Blood (Negative) Ur Leukocyte Esterase (Negative) Urine RBC (0-5) /hpf Urine WBC (0-5) /hpf Urine Bacteria (None) /hpf Urine Mucus (None) /hpf Urine Yeast (Budding) (None) /hpf 06/10/16 06/10/16 06/10/16 Range/Units 15:47 16:54 18:08 WBC (3.8-10.6) k/uL MCHC (31.0-37.0) g/dL Plt Count (150-450) k/uL Neutrophils # (1.3-7.7) k/uL Lymphocytes # (1.0-4.8) k/uL PT (9.0-12.0) sec APTT (22.0-30.0) sec ABG pH (7.35-7.45) ABG pCO2 (35-45) mmHg ABG HCO3 (21-25) mmol/L ABG O2 Saturation (94-97) % Chloride (98-107) mmol/L Carbon Dioxide (22-30) mmol/L BUN (7-17) mg/dL Creatinine (0.52-1.04) mg/dL Glucose (74-99) mg/dL POC Glucose (mg/dL) 213 H 217 H 210 H (75-99) mg/dL Plasma Lactic Acid Cedrick (0.7-2.0) mmol/L Calcium (8.4-10.2) mg/dL Phosphorus (2.5-4.5) mg/dL Urine Appearance (Clear) Urine Protein (Negative) Urine Blood (Negative) Ur Leukocyte Esterase (Negative) Urine RBC (0-5) /hpf Urine WBC (0-5) /hpf Urine Bacteria (None) /hpf Urine Mucus (None) /hpf Urine Yeast (Budding) (None) /hpf 06/10/16 06/10/16 Range/Units 19:13 20:14 WBC (3.8-10.6) k/uL MCHC (31.0-37.0) g/dL Plt Count (150-450) k/uL Neutrophils # (1.3-7.7) k/uL Lymphocytes # (1.0-4.8) k/uL PT (9.0-12.0) sec APTT (22.0-30.0) sec ABG pH (7.35-7.45) ABG pCO2 (35-45) mmHg ABG HCO3 (21-25) mmol/L ABG O2 Saturation (94-97) % Chloride (98-107) mmol/L Carbon Dioxide (22-30) mmol/L BUN (7-17) mg/dL Creatinine (0.52-1.04) mg/dL Glucose (74-99) mg/dL POC Glucose (mg/dL) 226 H 210 H (75-99) mg/dL Plasma Lactic Acid Cedrick (0.7-2.0) mmol/L Calcium (8.4-10.2) mg/dL Phosphorus (2.5-4.5) mg/dL Urine Appearance (Clear) Urine Protein (Negative) Urine Blood (Negative) Ur Leukocyte Esterase (Negative) Urine RBC (0-5) /hpf Urine WBC (0-5) /hpf Urine Bacteria (None) /hpf Urine Mucus (None) /hpf Urine Yeast (Budding) (None) /hpf Microbiology - Last 24 Hours (Table) 06/08/16 09:30 Gram Stain - Final Sputum Sputum Culture - Final Assessment and Plan (1) Encephalopathy Narrative/Plan: acute multifactorial Status: Acute (2) Acute on chronic respiratory failure with hypoxemia Narrative/Plan: anoxic brain injury Status: Acute (3) Generalized weakness Status: Acute (4) Pneumonia Status: Acute (5) Thrombocytopenia Status: Acute Plan: Patient has appeared to have suffered an anoxic brain injury given the presentation as noted above. EEG showed moderate to severe encephalopathy. Patient appeared to decline somewhat in the last 24 hours. Patient has infectious and metabolic causes for worsening of her encephalopathy. Recommend continuing IV hydration and antibiotic therapy. CT of the brain showed no acute intracranial abnormalities. At this time the prognosis is poor. Continue supportive care. Continue neurological checks as scheduled. Status: Patient's overall prognosis is poor. Recommend discussion with family for plan of care. Neurology will continue to follow with updates as needed or warranted. If you have any questions please feel free to contact our office. I discussed the patient's pertinent medical information with Dr. Shuayto. He agrees with the plan of care as implemented.
[2016-06-10 21:09] LABS: Glucose,Whole Blood 211 mg/dL (75-99)
--- NOTE | 2016-06-10 21:23 | PCN ---
DATE OF PROCEDURE: LEFT SUBCLAVIAN TRIPLE-LUMEN CATHETER PLACEMENT PREOPERATIVE DIAGNOSIS: Administration of fluids and pressors. A time-out was completed verifying correct patient, procedure, site, positioning, and implant(s) or special equipment if applicable. The patient was placed in a dependent position appropriate for triple-lumen catheter placement based on the vein to be cannulated. The patient's left shoulder was prepped and draped in sterile fashion. Lidocaine 1% was used to anesthetize the surrounding skin area. A triple-lumen 9F Cordis catheter was introduced into the subclavian vein using Seldinger technique. The catheter was threaded smoothly over the guidewire and appropriate blood return was obtained. Each lumen of the catheter was evacuated of air and flushed with sterile saline. The catheter was then sutured in place to the skin and a sterile dressing applied. Perfusion to the extremity distal to the point of catheter insertion was checked and found to be adequate. There was no immediate complication. Catheter was sutured in place. Sterile dressing was applied by the nurse. A chest x-ray was ordered check placement and rule out pneumothorax. Again there was no immediate complication. There was good blood return from all 3 ports. Again a chest x-ray was ordered to check placement.
--- NOTE | 2016-06-10 21:26 | P.PN ---
Subjective Principal diagnosis: Altered mental status, respiratory failure, transient atrial fibrillation and possible aspiration pneumonia and anoxic encephalopathy. This patient is admitted to the hospital with altered mental status and respiratory difficulties. Patient subsequently had a cardiac arrest requiring resuscitation. Patient has been on ventilator. Patient has episodes of hypotension requiring IV fluids. Patient also went into atrial fibrillation with rapid and corresponds. Patient is on Cardizem drip. Patient appears to have metabolic encephalopathy. She was evaluated by neurology and EEG was performed. Prognosis apparently is poor. A decision regarding further management to be discussed with the family. The patient is to be in atrial fibrillation, she may need anticoagulation therapy. We'll may also had a IV beta blockers or digoxin for rate control. Prognosis is guarded Objective - Vital Signs Vital signs: Vital Signs Temp 101.0 F H 06/10/16 16:00 Pulse 137 H 06/10/16 19:17 Resp 26 H 06/10/16 19:00 BP 108/59 06/10/16 19:00 Pulse Ox 99 06/10/16 19:00 Intake & Output 06/10/16 06/10/16 06/11/16 06:59 18:59 06:59 Intake Total 5481.289 3877.752 132.294 Output Total 1083 975 60 Balance 4398.289 2902.752 72.294 Weight 143.9 kg 143.9 kg Intake: IV 3815.0 2650.0 Diltiazem 125 mg In 40 25 Sodium Chloride 0.9% 100 ml @ 5 MG/HR 5 mls/hr IV .Q24H MARY Rx#:[id number] Piperacillin-Tazobactam 3 50.0 50.0 .375 gm In Dextrose/Water 1 50ml.bag @ 12.5 mls/hr IVPB Q12HR MARY Rx#: [id number] Sodium Chloride 0.9% 1, 3725 2325 000 ml @ 125 mls/hr IV . Q8H MARY Rx#:[id number] Sodium Phosphate 10 mmol 250 In Sodium Chloride 0.9% 250 ml @ 125 mls/hr IVPB ONCE ONE Rx#:[id number] Intake, IV Titration 649.289 612.752 75.294 Amount Diltiazem 125 mg In 92.917 42.333 Sodium Chloride 0.9% 100 ml @ 5 MG/HR 5 mls/hr IV .Q24H MARY Rx#:[id number] Insulin Regular 100 unit 288.927 186.076 32.555 In Sodium Chloride 0.9% 100 ml @ Per Protocol IV .Q0M MARY Rx#:[id number] Norepinephrin 16 mg-0.9% 53.441 0.406 Ns Pmx 16 mg In 250 ml @ Titrate IV .Q0M MARY Rx#: [id number] Norepinephrin 4 mg-0.9% 238.250 186.75 Ns Pmx 4 mg In 250 ml @ Titrate IV .Q0M MARY Rx#: [id number] Propofol 500 mg In Empty 122.112 93.568 Bag 1 bag @ Titrate IV . Q0M MARY Rx#:[id number] Tube Feeding 912 570 57 Other 105 45 Output: Urine 1083 975 60 Other: Voiding Method Indwelling Catheter Indwelling Catheter ABP, PAP, CO, CI - Last Documented Arterial Blood Pressure 136/62 - Exam GENERAL EXAM: Patient is intubated HEENT: Normocephalic. Normal reaction of pupils, equal size, normal range of extraocular motion. No erythema or exudates in the throat. NECK: No masses, no nuchal rigidity. CHEST: No chest wall deformity. LUNGS: Diminished breath sounds at bases HEART: S1 and S2 normal with irregular heart sounds ABDOMEN: No hepatosplenomegaly, normal bowel sounds, no guarding or rigidity. SKIN: No rashes CENTRAL NERVOUS SYSTEM: Unresponsive EXTREMITIES: No cyanosis, clubbing or edema. - Labs CBC & Chem 7: 06/10/16 04:45 06/10/16 04:45 Labs: Abnormal Lab Results - Last 24 Hours (Table) 06/09/16 06/09/16 06/09/16 Range/Units 21:39 22:14 23:17 WBC (3.8-10.6) k/uL MCHC (31.0-37.0) g/dL Plt Count (150-450) k/uL Neutrophils # (1.3-7.7) k/uL Lymphocytes # (1.0-4.8) k/uL PT (9.0-12.0) sec APTT (22.0-30.0) sec ABG pH (7.35-7.45) ABG pCO2 (35-45) mmHg ABG HCO3 (21-25) mmol/L ABG O2 Saturation (94-97) % Chloride (98-107) mmol/L Carbon Dioxide (22-30) mmol/L BUN (7-17) mg/dL Creatinine (0.52-1.04) mg/dL Glucose (74-99) mg/dL POC Glucose (mg/dL) 414 H 437 H 352 H (75-99) mg/dL Plasma Lactic Acid Cedrick (0.7-2.0) mmol/L Calcium (8.4-10.2) mg/dL Phosphorus (2.5-4.5) mg/dL Urine Appearance (Clear) Urine Protein (Negative) Urine Blood (Negative) Ur Leukocyte Esterase (Negative) Urine RBC (0-5) /hpf Urine WBC (0-5) /hpf Urine Bacteria (None) /hpf Urine Mucus (None) /hpf Urine Yeast (Budding) (None) /hpf 06/10/16 06/10/16 06/10/16 Range/Units 00:19 01:07 02:08 WBC (3.8-10.6) k/uL MCHC (31.0-37.0) g/dL Plt Count (150-450) k/uL Neutrophils # (1.3-7.7) k/uL Lymphocytes # (1.0-4.8) k/uL PT (9.0-12.0) sec APTT (22.0-30.0) sec ABG pH (7.35-7.45) ABG pCO2 (35-45) mmHg ABG HCO3 (21-25) mmol/L ABG O2 Saturation (94-97) % Chloride (98-107) mmol/L Carbon Dioxide (22-30) mmol/L BUN (7-17) mg/dL Creatinine (0.52-1.04) mg/dL Glucose (74-99) mg/dL POC Glucose (mg/dL) 299 H 306 H 258 H (75-99) mg/dL Plasma Lactic Acid Cedrick (0.7-2.0) mmol/L Calcium (8.4-10.2) mg/dL Phosphorus (2.5-4.5) mg/dL Urine Appearance (Clear) Urine Protein (Negative) Urine Blood (Negative) Ur Leukocyte Esterase (Negative) Urine RBC (0-5) /hpf Urine WBC (0-5) /hpf Urine Bacteria (None) /hpf Urine Mucus (None) /hpf Urine Yeast (Budding) (None) /hpf 06/10/16 06/10/16 06/10/16 Range/Units 03:06 04:00 04:27 WBC (3.8-10.6) k/uL MCHC (31.0-37.0) g/dL Plt Count (150-450) k/uL Neutrophils # (1.3-7.7) k/uL Lymphocytes # (1.0-4.8) k/uL PT (9.0-12.0) sec APTT (22.0-30.0) sec ABG pH (7.35-7.45) ABG pCO2 (35-45) mmHg ABG HCO3 (21-25) mmol/L ABG O2 Saturation (94-97) % Chloride (98-107) mmol/L Carbon Dioxide (22-30) mmol/L BUN (7-17) mg/dL Creatinine (0.52-1.04) mg/dL Glucose (74-99) mg/dL POC Glucose (mg/dL) 234 H 231 H (75-99) mg/dL Plasma Lactic Acid Cedrick (0.7-2.0) mmol/L Calcium (8.4-10.2) mg/dL Phosphorus (2.5-4.5) mg/dL Urine Appearance Cloudy H (Clear) Urine Protein 1+ H (Negative) Urine Blood Small H (Negative) Ur Leukocyte Esterase Small H (Negative) Urine RBC 83 H (0-5) /hpf Urine WBC 17 H (0-5) /hpf Urine Bacteria Few H (None) /hpf Urine Mucus Rare H (None) /hpf Urine Yeast (Budding) Many H (None) /hpf 06/10/16 06/10/16 06/10/16 Range/Units 04:36 04:36 04:45 WBC 11.2 H (3.8-10.6) k/uL MCHC 30.6 L (31.0-37.0) g/dL Plt Count 125 L (150-450) k/uL Neutrophils # 9.8 H (1.3-7.7) k/uL Lymphocytes # 0.6 L (1.0-4.8) k/uL PT 12.2 H (9.0-12.0) sec APTT 19.6 L (22.0-30.0) sec ABG pH (7.35-7.45) ABG pCO2 (35-45) mmHg ABG HCO3 (21-25) mmol/L ABG O2 Saturation (94-97) % Chloride (98-107) mmol/L Carbon Dioxide (22-30) mmol/L BUN (7-17) mg/dL Creatinine (0.52-1.04) mg/dL Glucose (74-99) mg/dL POC Glucose (mg/dL) (75-99) mg/dL Plasma Lactic Acid Cedrick 3.5 H* (0.7-2.0) mmol/L Calcium (8.4-10.2) mg/dL Phosphorus (2.5-4.5) mg/dL Urine Appearance (Clear) Urine Protein (Negative) Urine Blood (Negative) Ur Leukocyte Esterase (Negative) Urine RBC (0-5) /hpf Urine WBC (0-5) /hpf Urine Bacteria (None) /hpf Urine Mucus (None) /hpf Urine Yeast (Budding) (None) /hpf 06/10/16 06/10/16 06/10/16 Range/Units 04:45 04:47 05:11 WBC (3.8-10.6) k/uL MCHC (31.0-37.0) g/dL Plt Count (150-450) k/uL Neutrophils # (1.3-7.7) k/uL Lymphocytes # (1.0-4.8) k/uL PT (9.0-12.0) sec APTT (22.0-30.0) sec ABG pH 7.52 H (7.35-7.45) ABG pCO2 23 L (35-45) mmHg ABG HCO3 18 L (21-25) mmol/L ABG O2 Saturation 99.0 H (94-97) % Chloride 112 H (98-107) mmol/L Carbon Dioxide 19 L (22-30) mmol/L BUN 68 H (7-17) mg/dL Creatinine 2.30 H (0.52-1.04) mg/dL Glucose 244 H (74-99) mg/dL POC Glucose (mg/dL) 202 H (75-99) mg/dL Plasma Lactic Acid Cedrick (0.7-2.0) mmol/L Calcium 10.8 H (8.4-10.2) mg/dL Phosphorus 2.3 L (2.5-4.5) mg/dL Urine Appearance (Clear) Urine Protein (Negative) Urine Blood (Negative) Ur Leukocyte Esterase (Negative) Urine RBC (0-5) /hpf Urine WBC (0-5) /hpf Urine Bacteria (None) /hpf Urine Mucus (None) /hpf Urine Yeast (Budding) (None) /hpf 06/10/16 06/10/16 06/10/16 Range/Units 06:08 07:22 07:58 WBC (3.8-10.6) k/uL MCHC (31.0-37.0) g/dL Plt Count (150-450) k/uL Neutrophils # (1.3-7.7) k/uL Lymphocytes # (1.0-4.8) k/uL PT (9.0-12.0) sec APTT (22.0-30.0) sec ABG pH (7.35-7.45) ABG pCO2 (35-45) mmHg ABG HCO3 (21-25) mmol/L ABG O2 Saturation (94-97) % Chloride (98-107) mmol/L Carbon Dioxide (22-30) mmol/L BUN (7-17) mg/dL Creatinine (0.52-1.04) mg/dL Glucose (74-99) mg/dL POC Glucose (mg/dL) 206 H 184 H 178 H (75-99) mg/dL Plasma Lactic Acid Cedrick (0.7-2.0) mmol/L Calcium (8.4-10.2) mg/dL Phosphorus (2.5-4.5) mg/dL Urine Appearance (Clear) Urine Protein (Negative) Urine Blood (Negative) Ur Leukocyte Esterase (Negative) Urine RBC (0-5) /hpf Urine WBC (0-5) /hpf Urine Bacteria (None) /hpf Urine Mucus (None) /hpf Urine Yeast (Budding) (None) /hpf 06/10/16 06/10/16 06/10/16 Range/Units 09:18 10:14 10:51 WBC (3.8-10.6) k/uL MCHC (31.0-37.0) g/dL Plt Count (150-450) k/uL Neutrophils # (1.3-7.7) k/uL Lymphocytes # (1.0-4.8) k/uL PT (9.0-12.0) sec APTT (22.0-30.0) sec ABG pH (7.35-7.45) ABG pCO2 (35-45) mmHg ABG HCO3 (21-25) mmol/L ABG O2 Saturation (94-97) % Chloride (98-107) mmol/L Carbon Dioxide (22-30) mmol/L BUN (7-17) mg/dL Creatinine (0.52-1.04) mg/dL Glucose (74-99) mg/dL POC Glucose (mg/dL) 147 H 130 H 138 H (75-99) mg/dL Plasma Lactic Acid Cedrick (0.7-2.0) mmol/L Calcium (8.4-10.2) mg/dL Phosphorus (2.5-4.5) mg/dL Urine Appearance (Clear) Urine Protein (Negative) Urine Blood (Negative) Ur Leukocyte Esterase (Negative) Urine RBC (0-5) /hpf Urine WBC (0-5) /hpf Urine Bacteria (None) /hpf Urine Mucus (None) /hpf Urine Yeast (Budding) (None) /hpf 06/10/16 06/10/16 06/10/16 Range/Units 11:20 12:04 13:04 WBC (3.8-10.6) k/uL MCHC (31.0-37.0) g/dL Plt Count (150-450) k/uL Neutrophils # (1.3-7.7) k/uL Lymphocytes # (1.0-4.8) k/uL PT (9.0-12.0) sec APTT (22.0-30.0) sec ABG pH (7.35-7.45) ABG pCO2 (35-45) mmHg ABG HCO3 (21-25) mmol/L ABG O2 Saturation (94-97) % Chloride (98-107) mmol/L Carbon Dioxide (22-30) mmol/L BUN (7-17) mg/dL Creatinine (0.52-1.04) mg/dL Glucose (74-99) mg/dL POC Glucose (mg/dL) 144 H 176 H 172 H (75-99) mg/dL Plasma Lactic Acid Cedrick (0.7-2.0) mmol/L Calcium (8.4-10.2) mg/dL Phosphorus (2.5-4.5) mg/dL Urine Appearance (Clear) Urine Protein (Negative) Urine Blood (Negative) Ur Leukocyte Esterase (Negative) Urine RBC (0-5) /hpf Urine WBC (0-5) /hpf Urine Bacteria (None) /hpf Urine Mucus (None) /hpf Urine Yeast (Budding) (None) /hpf 06/10/16 06/10/16 06/10/16 Range/Units 14:03 15:07 15:47 WBC (3.8-10.6) k/uL MCHC (31.0-37.0) g/dL Plt Count (150-450) k/uL Neutrophils # (1.3-7.7) k/uL Lymphocytes # (1.0-4.8) k/uL PT (9.0-12.0) sec APTT (22.0-30.0) sec ABG pH (7.35-7.45) ABG pCO2 (35-45) mmHg ABG HCO3 (21-25) mmol/L ABG O2 Saturation (94-97) % Chloride (98-107) mmol/L Carbon Dioxide (22-30) mmol/L BUN (7-17) mg/dL Creatinine (0.52-1.04) mg/dL Glucose (74-99) mg/dL POC Glucose (mg/dL) 198 H 231 H 213 H (75-99) mg/dL Plasma Lactic Acid Cedrick (0.7-2.0) mmol/L Calcium (8.4-10.2) mg/dL Phosphorus (2.5-4.5) mg/dL Urine Appearance (Clear) Urine Protein (Negative) Urine Blood (Negative) Ur Leukocyte Esterase (Negative) Urine RBC (0-5) /hpf Urine WBC (0-5) /hpf Urine Bacteria (None) /hpf Urine Mucus (None) /hpf Urine Yeast (Budding) (None) /hpf 06/10/16 06/10/16 06/10/16 Range/Units 16:54 18:08 19:13 WBC (3.8-10.6) k/uL MCHC (31.0-37.0) g/dL Plt Count (150-450) k/uL Neutrophils # (1.3-7.7) k/uL Lymphocytes # (1.0-4.8) k/uL PT (9.0-12.0) sec APTT (22.0-30.0) sec ABG pH (7.35-7.45) ABG pCO2 (35-45) mmHg ABG HCO3 (21-25) mmol/L ABG O2 Saturation (94-97) % Chloride (98-107) mmol/L Carbon Dioxide (22-30) mmol/L BUN (7-17) mg/dL Creatinine (0.52-1.04) mg/dL Glucose (74-99) mg/dL POC Glucose (mg/dL) 217 H 210 H 226 H (75-99) mg/dL Plasma Lactic Acid Cerdick (0.7-2.0) mmol/L Calcium (8.4-10.2) mg/dL Phosphorus (2.5-4.5) mg/dL Urine Appearance (Clear) Urine Protein (Negative) Urine Blood (Negative) Ur Leukocyte Esterase (Negative) Urine RBC (0-5) /hpf Urine WBC (0-5) /hpf Urine Bacteria (None) /hpf Urine Mucus (None) /hpf Urine Yeast (Budding) (None) /hpf 06/10/16 06/10/16 Range/Units 20:14 21:08 WBC (3.8-10.6) k/uL MCHC (31.0-37.0) g/dL Plt Count (150-450) k/uL Neutrophils # (1.3-7.7) k/uL Lymphocytes # (1.0-4.8) k/uL PT (9.0-12.0) sec APTT (22.0-30.0) sec ABG pH (7.35-7.45) ABG pCO2 (35-45) mmHg ABG HCO3 (21-25) mmol/L ABG O2 Saturation (94-97) % Chloride (98-107) mmol/L Carbon Dioxide (22-30) mmol/L BUN (7-17) mg/dL Creatinine (0.52-1.04) mg/dL Glucose (74-99) mg/dL POC Glucose (mg/dL) 210 H 211 H (75-99) mg/dL Plasma Lactic Acid Cedrick (0.7-2.0) mmol/L Calcium (8.4-10.2) mg/dL Phosphorus (2.5-4.5) mg/dL Urine Appearance (Clear) Urine Protein (Negative) Urine Blood (Negative) Ur Leukocyte Esterase (Negative) Urine RBC (0-5) /hpf Urine WBC (0-5) /hpf Urine Bacteria (None) /hpf Urine Mucus (None) /hpf Urine Yeast (Budding) (None) /hpf Microbiology - Last 24 Hours (Table) 06/08/16 09:30 Gram Stain - Final Sputum Sputum Culture - Final Assessment and Plan (1) Cardiopulmonary arrest Status: Acute (2) Acute exacerbation of chronic obstructive airways disease Status: Acute (3) Altered mental status Status: Acute (4) Atrial fibrillation Status: Acute (5) Multifocal atrial tachycardia Status: Acute (6) AV block Status: Acute (7) Encephalopathy Status: Acute Plan: We will continue IV Cardizem. We'll also add digoxin. Patient's overall prognosis appears to be poor. He also had heparin and anticoagulation he patient continues to be in atrial fibrillation.
[2016-06-10 22:08] LABS: Glucose,Whole Blood 215 mg/dL (75-99)
[2016-06-10 23:12] LABS: Glucose,Whole Blood 197 mg/dL (75-99)
[2016-06-11 00:23] LABS: Glucose,Whole Blood 192 mg/dL (75-99)
[2016-06-11] MEDS: PROPOFOL 500 MG in EMPTY BAG 1 BAG IV SCH ×4 (00:23→21:13)
[2016-06-11] MEDS: methylPREDNISolone SOD SUCCI 125 MG/2 ML VIAL IV SCH ×4 (00:25→18:31)
[2016-06-11] MEDS: SODIUM CHLORIDE 0.9% 1,000 ML IV SCH ×2 (00:25→09:16)
[2016-06-11 01:19] LABS: Glucose,Whole Blood 180 mg/dL (75-99)
[2016-06-11] MEDS: ACETAMINOPHEN IV (For NPO) 1,000 MG in EMPTY BAG 1 BAG IVPB PRN (01:23)
[2016-06-11 03:05] LABS: Glucose,Whole Blood 197 mg/dL (75-99)
[2016-06-11] MEDS: INSULIN REGULAR 100 UNIT in SODIUM CHLORIDE 0.9% 100 ML IV SCH ×4 (03:07→22:00)
[2016-06-11] MEDS: DILTIAZEM 125 MG in SODIUM CHLORIDE 0.9% 100 ML IV SCH (03:07)
[2016-06-11] MEDS: LEVALBUTEROL NEB (CONC) 1.25 MG/0.5 ML AMP INHALATION SCH ×6 (03:27→23:12)
[2016-06-11] MEDS: IPRATROPIUM 0.5 MG/2.5 ML NEBU INHALATION SCH ×6 (03:27→23:12)
[2016-06-11 04:27] LABS: Glucose,Whole Blood 170 mg/dL (75-99)
[2016-06-11 04:38] LABS: Basophils % (A) 0 %; CH 27.3; CHCM 30.3; Eosinophils % (A) 0 %; HCT 33.4 % (34.0-46.0); HDW 3.07; HGB 10.4 gm/dL (11.4-16.0); Hypochromasia Marked; Luc # (Auto) 0.07; Luc % (Auto) 1; Lymphocytes # (A) 0.7 k/uL (1.0-4.8); Lymphocytes % (A) 10 %; MCH 28.2 pg (25.0-35.0); MCHC 31.1 g/dL (31.0-37.0); MCV 90.7 fL (80.0-100.0); Mean Platelet Volume 9.2; Monocytes # (A) 0.4 k/uL (0-1.0); Monocytes % (A) 6 %; Neutrophils # (A) 5.2 k/uL (1.3-7.7); Neutrophils % (A) 82 %; RBC 3.69 m/uL (3.80-5.40); RDW 15.6 % (11.5-15.5); WBC 6.4 k/uL (3.8-10.6); WBC (Perox) 6.74
[2016-06-11 04:55] LABS: Calcium 10.1 mg/dL (8.4-10.2); Magnesium 2.1 mg/dL (1.6-2.3); Phosphorous 3.2 mg/dL (2.5-4.5); Potassium 4.4 mmol/L (3.5-5.1)
[2016-06-11 05:16] LABS: Glucose,Whole Blood 160 mg/dL (75-99)
[2016-06-11 05:18] LABS: ABG Base Excess -4.2 mmol/L; ABG HCO3 21 mmol/L (21-25); ABG PCO2 42 mmHg (35-45); ABG PH 7.32 (7.35-7.45); ABG PO2 97 mmHg (83-108); ABG TCO2 22 mmol/L (19-24)
[2016-06-11 06:07] LABS: Glucose,Whole Blood 190 mg/dL (75-99)
[2016-06-11] MEDS: LEVOTHYROXINE 125 MCG TAB PO SCH (06:07)
[2016-06-11 07:17] LABS: Glucose,Whole Blood 169 mg/dL (75-99)
[2016-06-11] MEDS: FORMOTEROL FUMARATE 20 MCG/2 ML NEBU INHALATION SCH ×2 (07:47→19:51)
[2016-06-11] MEDS: BUDESONIDE 1 MG/2 ML NEBU INHALATION SCH ×2 (07:47→19:51)
--- NOTE | 2016-06-11 07:56 | PCN ---
DATE OF PROCEDURE: 06/10/2016 ARTERIAL LINE PLACEMENT PROCEDURE: Left pedis dorsalis arterial line insertion. Indication: Hemodynamic monitoring. A time-out was completed verifying correct patient, procedure, site, positioning, and implant(s) or special equipment if applicable. Gene's test was performed to ensure adequate perfusion. The patient's left foot was prepped and draped in sterile fashion. 1% Lidocaine was used to anesthetize the area. An 18G Arrow arterial line was introduced into the left pedis dorsalis artery. The catheter was threaded over the guide wire and the needle was removed with appropriate pulsatile blood return. Blood loss was minimal. The catheter was then sutured in place to the skin and a sterile dressing applied. Perfusion to the extremity distal to the point of catheter insertion was checked and found to be adequate. The patient tolerated the procedure well and there were no complications. There were no immediate complications. KAYLA
[2016-06-11 08:08] LABS: Glucose,Whole Blood 165 mg/dL (75-99)
--- NOTE | 2016-06-11 08:08 | XR ---
EXAMINATION TYPE: XR chest 1V portable DATE OF EXAM: 06/11/2016 6:33 AM COMPARISON: 06/10/2016 INDICATION: Previous abnormal chest, difficulty breathing TECHNIQUE: Single frontal view of the chest is obtained. FINDINGS: The heart size is normal. The pulmonary vasculature is normal. There is a small to moderate left pleural effusion. Mild increased lung markings are at the right bas e. Findings have worsened over the interval. Note is made of an azygos fissure. There is an endotracheal tube present with tip above the karson. Nasogastric tube transverses the tho rax. EKG leads overlie the chest. Left central venous catheter is present with the tip in the proxima l right atrium. IMPRESSION: 1. Small to moderate left pleural effusion increasing from prior. 2. Developing subsegmental atelectasis or early pneumonia right base. 3. Lines and catheters discussed above.
--- NOTE | 2016-06-11 08:12 | P.PN ---
Subjective Progress note dated 06/09/2016 This is a 75-year-old female who initially presented to the emergency department on June 07 shortness of breath. She apparently had a cardiopulmonary arrest on the sixth floor and she was transferred here yesterday. She was intubated on the sixth floor during the cardiopulmonary arrest. The circumstances of her rest are not known. I suspect she had worsening hypercapnic respiratory failure. She apparently does have a history of severe COPD. Anyway she's currently here in the ICU on the ventilator. Yesterday we put an art line in her. Today's of vent settings include the assist control mode rate of 24 a tidal volume of 400 and FiO2 of 50% to be dropped to 40% and a PEEP of 5. Blood gases show a PaO2 of 114 PaCO2 of 38 and a pH of 7.38. The patient's on normal saline at 1 25 mL an hour propofol at 20 mics per kilogram per minute and vital high protein at a rate of 40 with a goal of 57. She was admitted to the ICU on the and had her cardiopulmonary arrest on the . Progress note dated 06/11/2016 a 75-year-old female initially presented to the emergency department on June 07 for shortness of breath. She had a cardiopulmonary arrest on the sixth floor was transferred here on the . She was intubated prior to being transferred here. Anyway, she is get a number different issues including ongoing atrial fibrillation with rapid ventricular response hypotension ulcerative other medical problems. I did speak to her primary today. The plan is going to continue to support her fully through the weekend and then make some sort of decision about possibly withdrawing life support early next week if she doesn't show improvement. She's currently on the assist control mode rate of 24 tidal volume 400 FiO2 40% PEEP of 5. Blood gases show a PaO2 of 97 a pCO2 of 42 pH 7.32. This is consistent with a mild metabolic acidosis. Currently remains on propofol, appointment 9 IV, Cardizem drip and norepinephrine and tube feeds. Objective - Vital Signs Vital signs: Vital Signs Temp 101.6 F H 06/11/16 04:00 Pulse 109 H 06/11/16 07:51 Resp 24 06/11/16 07:00 BP 112/56 06/11/16 00:30 Pulse Ox 95 06/11/16 07:00 Intake & Output 0406/11/16 06/11/16 18:59 06:59 18:59 Intake Total 3927.752 2746.784 207.923 Output Total 975 205 16 Balance 2952.752 2541.784 191.923 Weight 143.9 kg Intake: IV 2650.0 1450.0 125 ACETAMINOPHEN IV (For NPO 100 ) 1,000 mg In Empty Bag 1 bag @ 400 mls/hr IVPB Q6HR PRN Rx#:[id number] Diltiazem 125 mg In 25 Sodium Chloride 0.9% 100 ml @ 5 MG/HR 5 mls/hr IV .Q24H MARY Rx#:[id number] Piperacillin-Tazobactam 3 50.0 50.0 .375 gm In Dextrose/Water 1 50ml.bag @ 12.5 mls/hr IVPB Q12HR MARY Rx#: [id number] Sodium Chloride 0.9% 1, 2325 1300 125 000 ml @ 125 mls/hr IV . Q8H MARY Rx#:[id number] Sodium Phosphate 10 mmol 250 In Sodium Chloride 0.9% 250 ml @ 125 mls/hr IVPB ONCE ONE Rx#:[id number] Intake, IV Titration 662.752 351.784 25.923 Amount Diltiazem 125 mg In 92.917 125.000 Sodium Chloride 0.9% 100 ml @ 5 MG/HR 5 mls/hr IV .Q24H MARY Rx#:[id number] Insulin Regular 100 unit 186.076 179.914 25.923 In Sodium Chloride 0.9% 100 ml @ Per Protocol IV .Q0M MARY Rx#:[id number] Norepinephrin 16 mg-0.9% 53.441 0.406 Ns Pmx 16 mg In 250 ml @ Titrate IV .Q0M MARY Rx#: [id number] Norepinephrin 4 mg-0.9% 186.75 Ns Pmx 4 mg In 250 ml @ Titrate IV .Q0M MARY Rx#: [id number] Propofol 500 mg In Empty 143.568 46.464 Bag 1 bag @ Titrate IV . Q0M MARY Rx#:[id number] Tube Feeding 570 855 57 Other 45 90 Output: Urine 975 205 16 Other: Voiding Method Indwelling Catheter Indwelling Catheter # Bowel Movements 1 ABP, PAP, CO, CI - Last Documented Arterial Blood Pressure 101/44 - Exam No acute distress. She is currently sedated. Oral gastric tube and endotracheal tube are noted. HEENT examination is grossly unremarkable. Mucous membranes are moist. Neck supple. Full range of motion. No adenopathy or thyromegaly. Cardio vascular examination reveals regular rhythm rate. Heart rate about 100. S1-S2 normal. No distinct murmur noted. Lungs reveal diminished breath sounds. A few scattered rhonchi. Some bibasilar crackles. Abdomen is obese. Bowel sounds are heard. Extremities are intact. Slight edema noted. Neurologic examination cannot be adequately performed Skin is without rash or lesions. - Labs CBC & Chem 7: 06/11/16 04:25 06/11/16 04:25 Labs: Abnormal Lab Results - Last 24 Hours (Table) 06/10/16 06/10/16 06/10/16 Range/Units 04:45 09:18 10:14 RBC (3.80-5.40) m/uL Hgb (11.4-16.0) gm/dL Hct (34.0-46.0) % RDW (11.5-15.5) % Plt Count (150-450) k/uL Lymphocytes # (1.0-4.8) k/uL ABG pH (7.35-7.45) Sodium (137-145) mmol/L Chloride (98-107) mmol/L BUN (7-17) mg/dL Creatinine (0.52-1.04) mg/dL Glucose (74-99) mg/dL POC Glucose (mg/dL) 147 H 130 H (75-99) mg/dL PTH Intact 689.6 H (14.0-72.0) pg/mL 06/10/16 06/10/16 06/10/16 Range/Units 10:51 11:20 12:04 RBC (3.80-5.40) m/uL Hgb (11.4-16.0) gm/dL Hct (34.0-46.0) % RDW (11.5-15.5) % Plt Count (150-450) k/uL Lymphocytes # (1.0-4.8) k/uL ABG pH (7.35-7.45) Sodium (137-145) mmol/L Chloride (98-107) mmol/L BUN (7-17) mg/dL Creatinine (0.52-1.04) mg/dL Glucose (74-99) mg/dL POC Glucose (mg/dL) 138 H 144 H 176 H (75-99) mg/dL PTH Intact (14.0-72.0) pg/mL 06/10/16 06/10/16 06/10/16 Range/Units 13:04 14:03 15:07 RBC (3.80-5.40) m/uL Hgb (11.4-16.0) gm/dL Hct (34.0-46.0) % RDW (11.5-15.5) % Plt Count (150-450) k/uL Lymphocytes # (1.0-4.8) k/uL ABG pH (7.35-7.45) Sodium (137-145) mmol/L Chloride (98-107) mmol/L BUN (7-17) mg/dL Creatinine (0.52-1.04) mg/dL Glucose (74-99) mg/dL POC Glucose (mg/dL) 172 H 198 H 231 H (75-99) mg/dL PTH Intact (14.0-72.0) pg/mL 06/10/16 06/10/16 06/10/16 Range/Units 15:47 16:54 18:08 RBC (3.80-5.40) m/uL Hgb (11.4-16.0) gm/dL Hct (34.0-46.0) % RDW (11.5-15.5) % Plt Count (150-450) k/uL Lymphocytes # (1.0-4.8) k/uL ABG pH (7.35-7.45) Sodium (137-145) mmol/L Chloride (98-107) mmol/L BUN (7-17) mg/dL Creatinine (0.52-1.04) mg/dL Glucose (74-99) mg/dL POC Glucose (mg/dL) 213 H 217 H 210 H (75-99) mg/dL PTH Intact (14.0-72.0) pg/mL 06/10/16 06/10/16 06/10/16 Range/Units 19:13 20:14 21:08 RBC (3.80-5.40) m/uL Hgb (11.4-16.0) gm/dL Hct (34.0-46.0) % RDW (11.5-15.5) % Plt Count (150-450) k/uL Lymphocytes # (1.0-4.8) k/uL ABG pH (7.35-7.45) Sodium (137-145) mmol/L Chloride (98-107) mmol/L BUN (7-17) mg/dL Creatinine (0.52-1.04) mg/dL Glucose (74-99) mg/dL POC Glucose (mg/dL) 226 H 210 H 211 H (75-99) mg/dL PTH Intact (14.0-72.0) pg/mL 06/10/16 06/10/16 06/11/16 Range/Units 22:07 23:11 00:22 RBC (3.80-5.40) m/uL Hgb (11.4-16.0) gm/dL Hct (34.0-46.0) % RDW (11.5-15.5) % Plt Count (150-450) k/uL Lymphocytes # (1.0-4.8) k/uL ABG pH (7.35-7.45) Sodium (137-145) mmol/L Chloride (98-107) mmol/L BUN (7-17) mg/dL Creatinine (0.52-1.04) mg/dL Glucose (74-99) mg/dL POC Glucose (mg/dL) 215 H 197 H 192 H (75-99) mg/dL PTH Intact (14.0-72.0) pg/mL 06/11/16 06/11/16 06/11/16 Range/Units 01:17 03:04 04:24 RBC (3.80-5.40) m/uL Hgb (11.4-16.0) gm/dL Hct (34.0-46.0) % RDW (11.5-15.5) % Plt Count (150-450) k/uL Lymphocytes # (1.0-4.8) k/uL ABG pH 7.32 L (7.35-7.45) Sodium (137-145) mmol/L Chloride (98-107) mmol/L BUN (7-17) mg/dL Creatinine (0.52-1.04) mg/dL Glucose (74-99) mg/dL POC Glucose (mg/dL) 180 H 197 H (75-99) mg/dL PTH Intact (14.0-72.0) pg/mL 06/11/16 06/11/16 06/11/16 Range/Units 04:25 04:25 04:26 RBC 3.69 L (3.80-5.40) m/uL Hgb 10.4 L (11.4-16.0) gm/dL Hct 33.4 L (34.0-46.0) % RDW 15.6 H (11.5-15.5) % Plt Count 84 L (150-450) k/uL Lymphocytes # 0.7 L (1.0-4.8) k/uL ABG pH (7.35-7.45) Sodium 146 H (137-145) mmol/L Chloride 115 H (98-107) mmol/L BUN 70 H (7-17) mg/dL Creatinine 2.30 H (0.52-1.04) mg/dL Glucose 177 H (74-99) mg/dL POC Glucose (mg/dL) 170 H (75-99) mg/dL PTH Intact (14.0-72.0) pg/mL 06/11/16 06/11/16 06/11/16 Range/Units 05:14 06:06 07:15 RBC (3.80-5.40) m/uL Hgb (11.4-16.0) gm/dL Hct (34.0-46.0) % RDW (11.5-15.5) % Plt Count (150-450) k/uL Lymphocytes # (1.0-4.8) k/uL ABG pH (7.35-7.45) Sodium (137-145) mmol/L Chloride (98-107) mmol/L BUN (7-17) mg/dL Creatinine (0.52-1.04) mg/dL Glucose (74-99) mg/dL POC Glucose (mg/dL) 160 H 190 H 169 H (75-99) mg/dL PTH Intact (14.0-72.0) pg/mL Microbiology - Last 24 Hours (Table) 06/08/16 09:30 Gram Stain - Final Sputum Sputum Culture - Final Assessment and Plan (1) Acute on chronic respiratory failure with hypoxemia Status: Acute (2) Hypoxemic respiratory failure, chronic Status: Acute (3) Acute exacerbation of chronic obstructive airways disease Status: Acute (4) Altered mental status Status: Acute (5) Atrial fibrillation Status: Acute (6) Cardiopulmonary arrest Status: Acute (7) Acute exacerbation of chronic obstructive pulmonary disease (COPD) Status: Acute (8) Morbid obesity with BMI of 40.0-44.9, adult Status: Acute Plan: Plan dated 06/09/2016 The patient will have her FiO2 dropped to 40% from 50%. No additional vent changes are made. She is adequately sedated on propofol. She is being nourished with vital high protein. The patient will have a daily eruption of sedation today and evaluated for his possible spontaneous breathing trial although not hopeful that she'll be able to get 1. She will have a EEG done today. She had 2 CAT scans of the brain either which showed acute abnormality. I did ask for a neurology consultation. She may have suffered some anoxic brain injury. Additional recommendations and suggestions are forthcoming. Labs x-rays a medications are all reviewed. Plan dated 06/11/2016 No vent changes today. We'll continue to follow closely. Labs x-rays a medications are all reviewed. Her overall prognosis is poor. We will do a daily eruption of sedation. We'll assess her neurologic status. So far EEG and CAT scan did not show anything major. She may be suffering from anoxic brain injury. Still has to any active medical problems to consider weaning including the atrial fibrillation RVR and hypotension. Prognosis is guarded. I did speak to her primary today. Time with Patient: Greater than 30
[2016-06-11 09:15] LABS: Glucose,Whole Blood 140 mg/dL (75-99)
[2016-06-11] MEDS: FLUoxetine HCL 20 MG CAP PO SCH (09:19)
[2016-06-11] MEDS: CYANOCOBALAMIN 500 MCG TAB PO SCH (09:19)
[2016-06-11] MEDS: ENOXAPARIN 150 MG/ML SYRINGE SQ SCH (09:19)
[2016-06-11] MEDS: ASPIRIN 325 MG TAB PO SCH (09:19)
[2016-06-11] MEDS: PIPERACILLIN-TAZOBACTAM 3.375 GM in DEXTROSE/WATER 1 50ML.BAG IVPB SCH ×2 (09:19→21:17)
[2016-06-11] MEDS: PANTOPRAZOLE 40 MG/10 ML VIAL IVP SCH (09:20)
[2016-06-11] MEDS: CHLORHEXIDINE GLUCONATE 15 ML CUP MUCOUS MEM SCH ×2 (09:20→21:10)
--- NOTE | 2016-06-11 09:22 | PN ---
CHIEF COMPLAINT: Re-evaluation. HISTORY OF PRESENT ILLNESS: This 75-year-old female evaluated 06/10/2016. who evaluation 17. The patient is in ICU. CHIEF COMPLAINT: Status post cardiopulmonary arrest. HISTORY OF PRESENT ILLNESS: This elderly female, 75-year-old, was admitted to the hospital with some altered mental status. The patient gradually progressed into bradycardia and cardiac arrest. The patient per nursing had CPR started immediately. The patient, however, seems to have some encephalopathic picture. Today she responds to her name. She opens her eyes when she is called. The patient otherwise last night did have atrial fib, rapid ventricular rate. The patient also had her respiratory rate go up at the same time. The patient is on hemodynamic support. She is on Zosyn. The patient is being followed by Pulmonary and Cardiology. The patient was placed on Lovenox today per pharmacy dosing due to renal failure. The patient also on Cardizem drip. REVIEW OF SYSTEMS: Unobtainable from the patient. Per nursing vitals have been stable except for the rapid atrial fibrillation and tachypnea when the patient was turned in bed. The patient since then was tachycardic and requiring Cardizem drip. She has had adequate urine output anywhere from 30 to 60 mL an hour. Renal function, however, is somewhat worse. Renal failure is suspected to be secondary to ATN. Respiratory status is stable with oxygenation adequate on 40% FiO2 with PEEP. The patient is on tube feedings. No reported bowel movement. PHYSICAL EXAMINATION: A 75-year-old. Vital signs reveal temperature 99.4, pulse 140, respirations 24, blood pressure 95/58, oxygen saturation 98% on mechanical ventilation with FiO2 40%. HEENT: Normocephalic. Pupils are reactive. The patient has an ET tube and a feeding tube orally. NECK: Difficult to assess for JVD. CHEST EXAMINATION: Clear to auscultation with decreased air flow left base. CARDIAC: Distant heart sounds. S1, S2 with no gallops. Irregular rhythm. Systolic murmur 2/6 left sternal border. ABDOMEN: Soft. Bowel sounds present, protuberant abdomen. Extremities reveal no edema. Neurologically responds to deep pain and opens her eyes to being called her name. No other activity noted. LABORATORY ASSESSMENT: Her blood sugars which are generally in the 200 range. The patient is on insulin drip. White count 11.2, hemoglobin 11.6, platelets 125. The pH 7.52, pCO2 of 23, and pO2 of 98. Sodium 145, potassium 4.4, chloride 112 and CO2 of 19, BUN 68, creatinine 2.3. Phosphorus 2.3. Magnesium 2.2. Chest x-ray suggests vascular congestion, small to moderate left pleural effusion, patchy basilar atelectasis and/or infiltrate. ASSESSMENT: 1. Acute respiratory failure requiring ventilator support. 2. Atrial fibrillation, rapid ventricular rate. 3. Encephalopathy anoxic/metabolic. 4. Thrombocytopenia. 5. Diabetes mellitus with elevated blood sugars. 6. Obesity. 7. Acute on chronic renal failure, probably secondary to acute tubular necrosis. 8. Status post cardiopulmonary arrest. PLAN: Continue present medical regimen. The patient's condition discussed with the family in detail. Prognosis remains guarded. Continue present supportive care. If condition deteriorates will discuss with family regarding code status as well as continuation of critical care and supportive care. Prognosis is poor with guarded at the best.
[2016-06-11 10:51] LABS: Glucose,Whole Blood 160 mg/dL (75-99)
[2016-06-11 11:55] LABS: Glucose,Whole Blood 157 mg/dL (75-99)
--- NOTE | 2016-06-11 12:26 | CDI ---
In responding to this query, please exercise your independent professional judgment. The [facility] Coding Staff and Clinical Documentation Specialists appreciate your assistance in clarifying documentation, maintaining compliance with coding guidelines, accurately documenting patients condition and capturing severity of illness. The fact that a question is asked does not imply that any particular answer is desired or expected. Communication forms are a method of clarifying documentation and are not made part of the Legal Health Record. Thank you in advance for your clarification. Last Revision, December 2014 Carlton Vazquez [address] [facility] [place] [address] Documentation Clarification Form Date: 06/09/2016 10:13:00 AM From: Jaye Rincon CCS, CCDS Admit Date: 06/07/2016 3:16:00 PM Patient Name: Veronica Fontaine Visit Number: [id number] Discharge Date: Dr. Lucas Montoya: 75 yo female, presented with lethargy, weakness & SOB. Diagnosed with acute pancreatitis, altered mental status, acute exacerbation of COPD. Patient went into cardiopulmonary arrest, intubated on ventilator. History/Risk Factors: COPD, DM, Hypertension, Chronic pancreatitis. Admission BUN 37, Cr 1.85, GFR 27. Current BUN 57, Cr 2.40, GFR 20 Patients Baseline: unknown Treatment: Albuterol INH, IV fl 20, IV Solumedrol, IV fluid rate 125, Intubated & on Ventilator >24 hrs. Consults: Cardiology, Pulmonary/Critical Care, Neurology In order to capture the severity of condition, please clarify if the condition signifies: CKD Stage 1 (GFR > 90) CKD Stage 2 (GFR 60-89) CKD Stage 3 (GFR 30-59) CKD Stage 4 (GFR 15-29) CKD Stage 5 (GFR <15) ESRD Unable to determine Other condition, please specify Please document in your progress notes and discharge summary in order to capture severity of illness and risk of mortality. Include clinical findings that support your diagnosis. FYI: Press F11 to launch patient chart. Place X here if this finding has no clinical significance, is not applicable or if you are not able to provide any additional documentation. Thank You. KAYLA
[2016-06-11] MEDS ORDERED: FUROSEMIDE 10 MG/ML 4 ML VIAL IV STA ×2 (13:10)
[2016-06-11] MEDS ORDERED: DEXTROSE 5% IN WATER 100 ML with AMIODARONE 150 MG IV ONE (13:10)
[2016-06-11 13:29] LABS: Glucose,Whole Blood 146 mg/dL (75-99)
[2016-06-11] MEDS: AMIODARONE 450 MG in DEXTROSE 5% IN WATER 250 ML IV SCH ×4 (13:46→21:10)
[2016-06-11 14:51] LABS: Glucose,Whole Blood 173 mg/dL (75-99)
--- NOTE | 2016-06-11 15:20 | P.PN ---
Subjective Principal diagnosis: Altered mental status, respiratory failure, transient atrial fibrillation and possible aspiration pneumonia and anoxic encephalopathy. This is 75-year-old female was admitted to the hospital with altered mental status and respiratory difficulties. Patient and developed a cardiopulmonary arrest requiring intubation and respiratory support. Patient is in atrial fibrillation with rapid ventricular response. We are going to start her on amiodarone bolus and drip. Patient has increasing pleural effusions and infiltrates on the chest x-ray. Patient also might have anoxic brain injury. Patient opens her eyes but doesn't follow commands. Neurology evaluating the patient. Patient's urine output is reasonable, but she is getting IV Lasix. Her creatinine remained stable around 2.3, though BUN is up. Overall her clinical status is static. Patient is made no code at this time. The prospects of comfort care is being considered. Objective - Vital Signs Vital signs: Vital Signs Temp 99.3 F 06/11/16 12:00 Pulse 126 H 06/11/16 14:45 Resp 21 06/11/16 14:45 BP 112/56 06/11/16 00:30 Pulse Ox 98 06/11/16 14:45 Intake & Output 06/10/16 06/11/16 06/11/16 18:59 06:59 18:59 Intake Total 3927.752 2746.784 1535.510 Output Total 907 854 0171 Balance 2952.752 2541.784 455.510 Weight 143.9 kg 146.6 kg Intake: IV 2650.0 1450.0 1162.5 0.45 875 ACETAMINOPHEN IV (For NPO 100 ) 1,000 mg In Empty Bag 1 bag @ 400 mls/hr IVPB Q6HR PRN Rx#:[id number] Diltiazem 125 mg In 25 Sodium Chloride 0.9% 100 ml @ 5 MG/HR 5 mls/hr IV .Q24H MARY Rx#:[id number] Piperacillin-Tazobactam 3 50.0 50.0 37.5 .375 gm In Dextrose/Water 1 50ml.bag @ 12.5 mls/hr IVPB Q12HR MARY Rx#: [id number] Sodium Chloride 0.9% 1, 2325 1300 250 000 ml @ 125 mls/hr IV . Q8H MARY Rx#:[id number] Sodium Phosphate 10 mmol 250 In Sodium Chloride 0.9% 250 ml @ 125 mls/hr IVPB ONCE ONE Rx#:[id number] Intake, IV Titration 662.752 351.784 88.010 Amount Diltiazem 125 mg In 92.917 125.000 Sodium Chloride 0.9% 100 ml @ 5 MG/HR 5 mls/hr IV .Q24H MARY Rx#:[id number] Insulin Regular 100 unit 186.076 179.914 38.010 In Sodium Chloride 0.9% 100 ml @ Per Protocol IV .Q0M MARY Rx#:[id number] Norepinephrin 16 mg-0.9% 53.441 0.406 Ns Pmx 16 mg In 250 ml @ Titrate IV .Q0M MARY Rx#: [id number] Norepinephrin 4 mg-0.9% 186.75 Ns Pmx 4 mg In 250 ml @ Titrate IV .Q0M MARY Rx#: [id number] Propofol 500 mg In Empty 143.568 46.464 50 Bag 1 bag @ Titrate IV . Q0M MARY Rx#:[id number] Tube Feeding 570 855 285 Other 45 90 Output: Urine 188 565 0108 Other: Voiding Method Indwelling Catheter Indwelling Catheter Indwelling Catheter # Bowel Movements 1 ABP, PAP, CO, CI - Last Documented Arterial Blood Pressure 96/46 - Exam GENERAL EXAM: Patient is intubated and sedated. HEENT: Normocephalic. NECK: No masses, no nuchal rigidity. CHEST: No chest wall deformity. LUNGS: Diminished breath sounds at bases HEART: S1 and S2 normal with irregular heart sounds ABDOMEN: No hepatosplenomegaly, normal bowel sounds, no guarding or rigidity. SKIN: No rashes CENTRAL NERVOUS SYSTEM: Unresponsive EXTREMITIES: No cyanosis, clubbing or edema. - Labs CBC & Chem 7: 06/11/16 04:25 06/11/16 04:25 Labs: Abnormal Lab Results - Last 24 Hours (Table) 06/10/16 06/10/16 06/10/16 Range/Units 04:45 15:47 16:54 RBC (3.80-5.40) m/uL Hgb (11.4-16.0) gm/dL Hct (34.0-46.0) % RDW (11.5-15.5) % Plt Count (150-450) k/uL Lymphocytes # (1.0-4.8) k/uL ABG pH (7.35-7.45) Sodium (137-145) mmol/L Chloride (98-107) mmol/L BUN (7-17) mg/dL Creatinine (0.52-1.04) mg/dL Glucose (74-99) mg/dL POC Glucose (mg/dL) 213 H 217 H (75-99) mg/dL PTH Intact 689.6 H (14.0-72.0) pg/mL 06/10/16 06/10/16 06/10/16 Range/Units 18:08 19:13 20:14 RBC (3.80-5.40) m/uL Hgb (11.4-16.0) gm/dL Hct (34.0-46.0) % RDW (11.5-15.5) % Plt Count (150-450) k/uL Lymphocytes # (1.0-4.8) k/uL ABG pH (7.35-7.45) Sodium (137-145) mmol/L Chloride (98-107) mmol/L BUN (7-17) mg/dL Creatinine (0.52-1.04) mg/dL Glucose (74-99) mg/dL POC Glucose (mg/dL) 210 H 226 H 210 H (75-99) mg/dL PTH Intact (14.0-72.0) pg/mL 06/10/16 06/10/16 06/10/16 Range/Units 21:08 22:07 23:11 RBC (3.80-5.40) m/uL Hgb (11.4-16.0) gm/dL Hct (34.0-46.0) % RDW (11.5-15.5) % Plt Count (150-450) k/uL Lymphocytes # (1.0-4.8) k/uL ABG pH (7.35-7.45) Sodium (137-145) mmol/L Chloride (98-107) mmol/L BUN (7-17) mg/dL Creatinine (0.52-1.04) mg/dL Glucose (74-99) mg/dL POC Glucose (mg/dL) 211 H 215 H 197 H (75-99) mg/dL PTH Intact (14.0-72.0) pg/mL 06/11/16 06/11/16 06/11/16 Range/Units 00:22 01:17 03:04 RBC (3.80-5.40) m/uL Hgb (11.4-16.0) gm/dL Hct (34.0-46.0) % RDW (11.5-15.5) % Plt Count (150-450) k/uL Lymphocytes # (1.0-4.8) k/uL ABG pH (7.35-7.45) Sodium (137-145) mmol/L Chloride (98-107) mmol/L BUN (7-17) mg/dL Creatinine (0.52-1.04) mg/dL Glucose (74-99) mg/dL POC Glucose (mg/dL) 192 H 180 H 197 H (75-99) mg/dL PTH Intact (14.0-72.0) pg/mL 06/11/16 06/11/16 06/11/16 Range/Units 04:24 04:25 04:25 RBC 3.69 L (3.80-5.40) m/uL Hgb 10.4 L (11.4-16.0) gm/dL Hct 33.4 L (34.0-46.0) % RDW 15.6 H (11.5-15.5) % Plt Count 84 L (150-450) k/uL Lymphocytes # 0.7 L (1.0-4.8) k/uL ABG pH 7.32 L (7.35-7.45) Sodium 146 H (137-145) mmol/L Chloride 115 H (98-107) mmol/L BUN 70 H (7-17) mg/dL Creatinine 2.30 H (0.52-1.04) mg/dL Glucose 177 H (74-99) mg/dL POC Glucose (mg/dL) (75-99) mg/dL PTH Intact (14.0-72.0) pg/mL 06/11/16 06/11/16 06/11/16 Range/Units 04:26 05:14 06:06 RBC (3.80-5.40) m/uL Hgb (11.4-16.0) gm/dL Hct (34.0-46.0) % RDW (11.5-15.5) % Plt Count (150-450) k/uL Lymphocytes # (1.0-4.8) k/uL ABG pH (7.35-7.45) Sodium (137-145) mmol/L Chloride (98-107) mmol/L BUN (7-17) mg/dL Creatinine (0.52-1.04) mg/dL Glucose (74-99) mg/dL POC Glucose (mg/dL) 170 H 160 H 190 H (75-99) mg/dL PTH Intact (14.0-72.0) pg/mL 06/11/16 06/11/16 06/11/16 Range/Units 07:15 08:07 09:13 RBC (3.80-5.40) m/uL Hgb (11.4-16.0) gm/dL Hct (34.0-46.0) % RDW (11.5-15.5) % Plt Count (150-450) k/uL Lymphocytes # (1.0-4.8) k/uL ABG pH (7.35-7.45) Sodium (137-145) mmol/L Chloride (98-107) mmol/L BUN (7-17) mg/dL Creatinine (0.52-1.04) mg/dL Glucose (74-99) mg/dL POC Glucose (mg/dL) 169 H 165 H 140 H (75-99) mg/dL PTH Intact (14.0-72.0) pg/mL 06/11/16 06/11/16 06/11/16 Range/Units 10:50 11:54 13:26 RBC (3.80-5.40) m/uL Hgb (11.4-16.0) gm/dL Hct (34.0-46.0) % RDW (11.5-15.5) % Plt Count (150-450) k/uL Lymphocytes # (1.0-4.8) k/uL ABG pH (7.35-7.45) Sodium (137-145) mmol/L Chloride (98-107) mmol/L BUN (7-17) mg/dL Creatinine (0.52-1.04) mg/dL Glucose (74-99) mg/dL POC Glucose (mg/dL) 160 H 157 H 146 H (75-99) mg/dL PTH Intact (14.0-72.0) pg/mL 06/11/16 Range/Units 14:50 RBC (3.80-5.40) m/uL Hgb (11.4-16.0) gm/dL Hct (34.0-46.0) % RDW (11.5-15.5) % Plt Count (150-450) k/uL Lymphocytes # (1.0-4.8) k/uL ABG pH (7.35-7.45) Sodium (137-145) mmol/L Chloride (98-107) mmol/L BUN (7-17) mg/dL Creatinine (0.52-1.04) mg/dL Glucose (74-99) mg/dL POC Glucose (mg/dL) 173 H (75-99) mg/dL PTH Intact (14.0-72.0) pg/mL Assessment and Plan (1) Cardiopulmonary arrest Status: Acute (2) Acute exacerbation of chronic obstructive airways disease Status: Acute (3) Altered mental status Status: Acute (4) Atrial fibrillation Status: Acute (5) Multifocal atrial tachycardia Status: Acute (6) AV block Status: Acute (7) Encephalopathy Status: Acute (8) Persistent atrial fibrillation Status: Acute Plan: Patient's clinical status seemed to be static or may be getting worse. Patient is in atrial fibrillation with rapid ventricular response. Patient is on a Cardizem drip. We also start her on amiodarone drip. She is getting respiratory support. X-ray showed worsening effusions and infiltrates. Mental status remains in question. Being followed by neurology. We'll continue current medical therapy. Prognosis is poor
[2016-06-11 15:53] LABS: Glucose,Whole Blood 185 mg/dL (75-99)
[2016-06-11 17:03] LABS: Glucose,Whole Blood 167 mg/dL (75-99)
[2016-06-11] MEDS: SODIUM CHLORIDE 0.45% 1,000 ML IV SCH ×2 (17:45→23:52)
[2016-06-11 18:23] LABS: Glucose,Whole Blood 178 mg/dL (75-99)
[2016-06-11 19:07] LABS: Glucose,Whole Blood 190 mg/dL (75-99)
[2016-06-11 21:04] LABS: Glucose,Whole Blood 176 mg/dL (75-99)
[2016-06-11 22:05] LABS: Glucose,Whole Blood 179 mg/dL (75-99)
[2016-06-11 23:05] LABS: Glucose,Whole Blood 183 mg/dL (75-99)
[2016-06-12] MEDS: methylPREDNISolone SOD SUCCI 125 MG/2 ML VIAL IV SCH ×5 (00:18→23:50)
[2016-06-12 00:41] LABS: Glucose,Whole Blood 181 mg/dL (75-99)
[2016-06-12] MEDS: DILTIAZEM 125 MG in SODIUM CHLORIDE 0.9% 100 ML IV SCH (01:14)
[2016-06-12 01:24] LABS: Glucose,Whole Blood 183 mg/dL (75-99)
[2016-06-12 02:28] LABS: Glucose,Whole Blood 175 mg/dL (75-99)
[2016-06-12] MEDS: PROPOFOL 500 MG in EMPTY BAG 1 BAG IV SCH ×7 (02:28→23:41)
[2016-06-12] MEDS: SODIUM CHLORIDE 0.45% 1,000 ML IV SCH ×3 (02:28→23:49)
[2016-06-12] MEDS: LEVALBUTEROL NEB (CONC) 1.25 MG/0.5 ML AMP INHALATION SCH ×6 (02:44→23:26)
[2016-06-12] MEDS: IPRATROPIUM 0.5 MG/2.5 ML NEBU INHALATION SCH ×6 (02:44→23:26)
[2016-06-12 03:16] LABS: Glucose,Whole Blood 172 mg/dL (75-99)
[2016-06-12 04:49] LABS: Basophils % (A) 0 %; CH 27.5; CHCM 31.1; Eosinophils % (A) 0 %; HCT 33.8 % (34.0-46.0); HDW 3.32; HGB 10.8 gm/dL (11.4-16.0); Hypochromasia Moderate; Luc # (Auto) 0.13; Luc % (Auto) 2; Lymphocytes # (A) 0.7 k/uL (1.0-4.8); Lymphocytes % (A) 12 %; MCH 28.3 pg (25.0-35.0); MCHC 31.9 g/dL (31.0-37.0); MCV 88.7 fL (80.0-100.0); Mean Platelet Volume 10.1; Monocytes # (A) 0.4 k/uL (0-1.0); Monocytes % (A) 6 %; Neutrophils % (A) 80 %; RBC 3.81 m/uL (3.80-5.40); RDW 15.6 % (11.5-15.5); WBC 6.2 k/uL (3.8-10.6); WBC (Perox) 6.46
[2016-06-12 05:01] LABS: Glucose,Whole Blood 171 mg/dL (75-99)
[2016-06-12 05:13] LABS: Calcium 10.4 mg/dL (8.4-10.2); Magnesium 2.2 mg/dL (1.6-2.3); Phosphorous 3.9 mg/dL (2.5-4.5); Potassium 4.2 mmol/L (3.5-5.1)
[2016-06-12 05:37] LABS: ABG HCO3 20 mmol/L (21-25); ABG PCO2 35 mmHg (35-45); ABG PH 7.36 (7.35-7.45); ABG PO2 91 mmHg (83-108)
[2016-06-12 05:38] LABS: ABG Base Excess -4.9 mmol/L; ABG TCO2 21 mmol/L (19-24)
[2016-06-12] MEDS: LEVOTHYROXINE 125 MCG TAB PO SCH (06:05)
[2016-06-12 06:51] LABS: Glucose,Whole Blood 165 mg/dL (75-99)
[2016-06-12] MEDS: INSULIN REGULAR 100 UNIT in SODIUM CHLORIDE 0.9% 100 ML IV SCH ×3 (06:51→19:00)
[2016-06-12] MEDS: BUDESONIDE 1 MG/2 ML NEBU INHALATION SCH ×2 (07:33→20:01)
[2016-06-12] MEDS: FORMOTEROL FUMARATE 20 MCG/2 ML NEBU INHALATION SCH ×2 (07:33→20:01)
--- NOTE | 2016-06-12 07:36 | XR ---
EXAMINATION TYPE: XR chest 1V portable DATE OF EXAM: 06/12/2016 7:03 AM COMPARISON: 06/11/2016 INDICATION: Previous abnormal chest TECHNIQUE: Single frontal view of the chest is obtained. FINDINGS: The heart size is normal. The pulmonary vasculature is normal. Azygos fissure is present. Some atelectasis of the azygos lobe. Present. There is a left pleural effu tracy which is stable. The endotracheal tube is present with the tip above the karson. Gastric tube transverses the thorax. Left central venous catheter is present with the tip in the proximal right atrium IMPRESSION: 1. Stable small to moderate left pleural effusion.
[2016-06-12 08:04] LABS: Glucose,Whole Blood 153 mg/dL (75-99)
[2016-06-12] MEDS: AMIODARONE 450 MG in DEXTROSE 5% IN WATER 250 ML IV SCH ×6 (08:14→15:17)
[2016-06-12] MEDS: FLUoxetine HCL 20 MG CAP PO SCH (08:15)
[2016-06-12] MEDS: ENOXAPARIN 150 MG/ML SYRINGE SQ SCH (08:15)
[2016-06-12] MEDS: CHLORHEXIDINE GLUCONATE 15 ML CUP MUCOUS MEM SCH ×2 (08:15→21:25)
[2016-06-12] MEDS: CYANOCOBALAMIN 500 MCG TAB PO SCH (08:15)
[2016-06-12] MEDS: ASPIRIN 325 MG TAB PO SCH (08:16)
[2016-06-12] MEDS: PANTOPRAZOLE 40 MG/10 ML VIAL IVP SCH (08:16)
[2016-06-12] MEDS: PIPERACILLIN-TAZOBACTAM 3.375 GM in DEXTROSE/WATER 1 50ML.BAG IVPB SCH ×2 (08:18→21:30)
--- NOTE | 2016-06-12 08:27 | PN ---
CHIEF COMPLAINT: Re-evaluation. HISTORY OF PRESENT ILLNESS: 75-year-old who was admitted to the hospital with generalized weakness and altered mental status. The patient subsequently had a cardiopulmonary arrest. The patient is on ventilator. No response; however, the patient has been on sedation. She is on propofol. The patient's condition discussed with the patient's nurse and Dr. Guzmán. The patient is exhibiting only very little response such as pain basically, but no other mental activity. The patient meanwhile did have a fever yesterday, none since. The patient continues to be in atrial fibrillation, rapid ventricular rate, but better rate than yesterday. The patient's respiratory status is stable at 40% FiO2 and PEEP. The patient is on tube feedings. The patient otherwise is not reported to have any GI symptoms. She has some increased edema. Urine output is slowing down. PHYSICAL EXAMINATION: 75-year-old female on the ventilator, appears anasarca, in no distress. Vital signs reveal patient's temperature is 99.6, pulse 120, respirations 22, blood pressure 100/47, pulse ox 97% on 40% FiO2. HEENT: Normocephalic. The patient has ET and feeding tube orally. CHEST EXAMINATION: Crackles left base. CARDIAC: Distant heart sounds. S1 and S2. No gallops. Irregular rhythm. Systolic murmur 2/6 apex. ABDOMEN: Protuberant, soft. Bowel sounds are present. EXTREMITIES: Edema. NEUROLOGIC: No response. Patient on propofol at the time of evaluation. LABORATORY ASSESSMENT: White count 6.4, hemoglobin 10.4, platelet count was down to 84, pH 7.32, pCO2 42, pO2 97, sodium 146, potassium 4.4, chloride 115. BUN 70, creatinine 2.3. Phosphorus magnesium are normal. Chest x-ray suggests mild to moderate left pleural effusion with subsegmental atelectasis. ASSESSMENT: 1. Acute respiratory failure. 2. Status post cardiopulmonary arrest. 3. Atrial fibrillation, rapid ventricular rate. 4. Acute on chronic renal failure. 5. Diabetes mellitus. 6. Encephalopathy. PLAN: Continue present medical regimen. The patient's condition discussed with the family. Prognosis remains poor. If the patient does not show any improvement in the next 24 to 48 hours after discontinuation of propofol, the patient would probably be recommended to be comfort care. The patient's family is prepared for the worse possible scenario.
[2016-06-12 10:59] LABS: Glucose,Whole Blood 155 mg/dL (75-99)
[2016-06-12 11:30] LABS: Glucose,Whole Blood 106 mg/dL (75-99)
--- NOTE | 2016-06-12 11:40 | P.PN ---
Subjective Principal diagnosis: Acute respiratory failure History present illness: This 75-year-old female was admitted to the hospital for altered mental status. Patient subsequently had a cardiopulmonary arrest. She is on a ventilator. Patient's been off sedation. There is not much of a mental activity she seems to open her eyes when she is addressed by her name. No motion of any of the extremities with painful stimulus. She is continued on the ventilator at 40% FiO2 and a PEEP of 5 maintaining adequate oxygenation. She continues to be in atrial fibrillation rate still hovering around 110. The patient has a Small catheter with adequate urine output. She does have acute on chronic renal failure. The patient does have some anasarca. Patient's on tube feedings. Review of system Unable to obtain from patient. Per nursing low-grade temperatures periodically. No reported bleeding, skin intact, does have anasarca. Does have a Small catheter and a feeding tube. Patient maintained on a ventilator Objective - Vital Signs Vital signs: Vital Signs Temp 98.6 F 06/12/16 08:00 Pulse 110 H 06/12/16 08:01 Resp 24 06/12/16 08:00 BP 112/56 06/11/16 00:30 Pulse Ox 99 06/12/16 08:00 Intake & Output 06/11/16 06/12/16 06/12/16 18:59 06:59 18:59 Intake Total 2415.243 2236.479 498.011 Output Total 1217 500 63 Balance 4196.938 2236.479 435.011 Weight 148 kg Intake: IV 1412.5 1500 250 0.45 1125 1500 250 Piperacillin-Tazobactam 3 37.5 .375 gm In Dextrose/Water 1 50ml.bag @ 12.5 mls/hr IVPB Q12HR MARY Rx#: [id number] Sodium Chloride 0.9% 1, 250 000 ml @ 125 mls/hr IV . Q8H MARY Rx#:[id number] Intake, IV Titration 489.743 565.479 191.011 Amount Amiodarone 450 mg In 251.492 191.011 Dextrose 5% in Water 250 ml @ 1 MG/MIN 34.53 mls/ hr IV .Q7H31M MARY Rx#: [id number] Diltiazem 125 mg In 125 Sodium Chloride 0.9% 100 ml @ 5 MG/HR 5 mls/hr IV .Q24H MARY Rx#:[id number] Insulin Regular 100 unit 139.743 201.267 In Sodium Chloride 0.9% 100 ml @ Per Protocol IV .Q0M MARY Rx#:[id number] Norepinephrin 16 mg-0.9% 0 12.720 Ns Pmx 16 mg In 250 ml @ Titrate IV .Q0M MARY Rx#: [id number] Propofol 500 mg In Empty 100 100 Bag 1 bag @ Titrate IV . Q0M MARY Rx#:[id number] Sodium Chloride 0.45% 1, 125 000 ml @ 125 mls/hr IV . Q8H MARY Rx#:[id number] Tube Feeding 513 171 57 Output: Urine 1217 500 63 Other: Voiding Method Indwelling Catheter Indwelling Catheter Indwelling Catheter ABP, PAP, CO, CI - Last Documented Arterial Blood Pressure 122/51 PHYSICAL EXAMINATION: Patient on a ventilator. No response. HEENT: Has an ET tube in oral feeding tube Chest: Decreased airflow at the bases especially left base Cardiac: Normal S1 and S2 irregularly irregular rhythm, distant heart sounds, no gallops systolic murmur 2/6 left sternal border. Abdomen: Soft protuberant bowel sounds present. Extremities: 1-2+ edema no tenderness Neurologically: Unresponsive does open eyes with verbal stimulus but no movements at all with any physical stimulus or pain stimulus - Labs CBC & Chem 7: 06/12/16 04:25 06/12/16 04:25 Labs: Abnormal Lab Results - Last 24 Hours (Table) 06/11/16 06/11/16 06/11/16 Range/Units 11:54 13:26 14:50 Hgb (11.4-16.0) gm/dL Hct (34.0-46.0) % RDW (11.5-15.5) % Plt Count (150-450) k/uL Lymphocytes # (1.0-4.8) k/uL ABG HCO3 (21-25) mmol/L Chloride (98-107) mmol/L Carbon Dioxide (22-30) mmol/L BUN (7-17) mg/dL Creatinine (0.52-1.04) mg/dL Glucose (74-99) mg/dL POC Glucose (mg/dL) 157 H 146 H 173 H (75-99) mg/dL Calcium (8.4-10.2) mg/dL 06/11/16 06/11/16 06/11/16 Range/Units 15:52 17:01 18:22 Hgb (11.4-16.0) gm/dL Hct (34.0-46.0) % RDW (11.5-15.5) % Plt Count (150-450) k/uL Lymphocytes # (1.0-4.8) k/uL ABG HCO3 (21-25) mmol/L Chloride (98-107) mmol/L Carbon Dioxide (22-30) mmol/L BUN (7-17) mg/dL Creatinine (0.52-1.04) mg/dL Glucose (74-99) mg/dL POC Glucose (mg/dL) 185 H 167 H 178 H (75-99) mg/dL Calcium (8.4-10.2) mg/dL 06/11/16 06/11/16 06/11/16 Range/Units 19:05 21:03 22:03 Hgb (11.4-16.0) gm/dL Hct (34.0-46.0) % RDW (11.5-15.5) % Plt Count (150-450) k/uL Lymphocytes # (1.0-4.8) k/uL ABG HCO3 (21-25) mmol/L Chloride (98-107) mmol/L Carbon Dioxide (22-30) mmol/L BUN (7-17) mg/dL Creatinine (0.52-1.04) mg/dL Glucose (74-99) mg/dL POC Glucose (mg/dL) 190 H 176 H 179 H (75-99) mg/dL Calcium (8.4-10.2) mg/dL 06/11/16 06/12/16 06/12/16 Range/Units 23:03 00:09 01:06 Hgb (11.4-16.0) gm/dL Hct (34.0-46.0) % RDW (11.5-15.5) % Plt Count (150-450) k/uL Lymphocytes # (1.0-4.8) k/uL ABG HCO3 (21-25) mmol/L Chloride (98-107) mmol/L Carbon Dioxide (22-30) mmol/L BUN (7-17) mg/dL Creatinine (0.52-1.04) mg/dL Glucose (74-99) mg/dL POC Glucose (mg/dL) 183 H 181 H 183 H (75-99) mg/dL Calcium (8.4-10.2) mg/dL 06/12/16 06/12/16 06/12/16 Range/Units 02:27 03:15 04:25 Hgb 10.8 L (11.4-16.0) gm/dL Hct 33.8 L (34.0-46.0) % RDW 15.6 H (11.5-15.5) % Plt Count 82 L (150-450) k/uL Lymphocytes # 0.7 L (1.0-4.8) k/uL ABG HCO3 (21-25) mmol/L Chloride (98-107) mmol/L Carbon Dioxide (22-30) mmol/L BUN (7-17) mg/dL Creatinine (0.52-1.04) mg/dL Glucose (74-99) mg/dL POC Glucose (mg/dL) 175 H 172 H (75-99) mg/dL Calcium (8.4-10.2) mg/dL 06/12/16 06/12/16 06/12/16 Range/Units 04:25 04:32 04:58 Hgb (11.4-16.0) gm/dL Hct (34.0-46.0) % RDW (11.5-15.5) % Plt Count (150-450) k/uL Lymphocytes # (1.0-4.8) k/uL ABG HCO3 20 L (21-25) mmol/L Chloride 114 H (98-107) mmol/L Carbon Dioxide 20 L (22-30) mmol/L BUN 88 H* (7-17) mg/dL Creatinine 2.50 H (0.52-1.04) mg/dL Glucose 181 H (74-99) mg/dL POC Glucose (mg/dL) 171 H (75-99) mg/dL Calcium 10.4 H (8.4-10.2) mg/dL 06/12/16 06/12/16 06/12/16 Range/Units 06:49 08:01 10:56 Hgb (11.4-16.0) gm/dL Hct (34.0-46.0) % RDW (11.5-15.5) % Plt Count (150-450) k/uL Lymphocytes # (1.0-4.8) k/uL ABG HCO3 (21-25) mmol/L Chloride (98-107) mmol/L Carbon Dioxide (22-30) mmol/L BUN (7-17) mg/dL Creatinine (0.52-1.04) mg/dL Glucose (74-99) mg/dL POC Glucose (mg/dL) 165 H 153 H 155 H (75-99) mg/dL Calcium (8.4-10.2) mg/dL 06/12/16 Range/Units 11:27 Hgb (11.4-16.0) gm/dL Hct (34.0-46.0) % RDW (11.5-15.5) % Plt Count (150-450) k/uL Lymphocytes # (1.0-4.8) k/uL ABG HCO3 (21-25) mmol/L Chloride (98-107) mmol/L Carbon Dioxide (22-30) mmol/L BUN (7-17) mg/dL Creatinine (0.52-1.04) mg/dL Glucose (74-99) mg/dL POC Glucose (mg/dL) 106 H (75-99) mg/dL Calcium (8.4-10.2) mg/dL Assessment and Plan Plan: ASSESSMENT: 1. Acute respiratory failure. 2. Ventilatory support. 3. Hypoventilation syndrome with obesity. 4. Atrial fibrillation rapid ventricular rate new-onset. 5. Acute on chronic renal failure. 6. Pleural effusion. 7. Cannot rule out to pneumonia. 8. Diabetes mellitus 9. Encephalopathy both metabolic and anoxic. 10. Anasarca PLAN: Continue present medical regimen with ventilatory support, hemodynamic support as needed. Medications to control ventricular rate. Insulin for controlling blood sugar. Patient's conditions been discussed with the family yesterday fairly in detail. They're not available today apparently Dr. Guzmán did talk to the family over the phone family is undecided what the next step is. Prognosis remains poor with a multi-organ involvement and underlying anoxic encephalopathy long-term quality of life is very questionable
[2016-06-12 12:25] LABS: Glucose,Whole Blood 144 mg/dL (75-99)
[2016-06-12 13:23] LABS: Glucose,Whole Blood 156 mg/dL (75-99)
--- NOTE | 2016-06-12 13:59 | PN ---
This is a 75-year-old female patient who presented here on June 07 with complaints of shortness of breath. She subsequently developed a cardiopulmonary arrest on the sixth floor and was transferred into the intensive care unit, intubated and placed on mechanical ventilator where she remains today. Current vent settings are assist control of 24, tidal volume 400, FiO2 of 40% and a PEEP of 5. Arterial blood gases are pO2 of 91, pCO2 of 35, pH 7.36. Current drips are 0.45 normal saline and 125 mL/h, propofol 50 mcg/kg per minute. Insulin 20 units per hour, amiodarone at 0.5 mg/min, Cardizem at 12.5 mg/h and receiving tube feeds of vital HP at 57 mL/h which is at goal. She has been seen and evaluated by Neurology. She has made no neurologic progress. On physical exam, she remains intubated on mechanical ventilator. Vital signs reveal blood pressure 122/51, heart rate 107, respirations 24, temperature is 98.6. She is 99% O2 saturation on 40% FiO2. She is morbidly obese. Her head is normocephalic. Sclerae nonicteric. Oral endotracheal and gastric tubes are secured in place. Her neck is short, supple. Trachea midline. Her lungs are clear anteriorly, faint crackles in the posterior bases. Her heart is irregularly irregular, S1, S2. Her abdomen is obese, soft. There is 1 to 2+ peripheral edema. No clubbing. No cyanosis. Peripheral pulses are intact. INVESTIGATIONS: Chest x-ray reveals stable, small to moderate left pleural effusion. Blood cultures, urine culture and sputum culture reveal no growth to date. Lab results reveal WBC 6.2, hemoglobin 10.8, platelet count 82,000. Sodium 141, potassium 4.2, chloride 114, CO2 of 20, BUN 88, creatinine 2.50. Medications are reviewed. IMPRESSION: 1. Acute on chronic hypoxic respiratory failure secondary to cardiopulmonary arrest. 2. Acute exacerbation of chronic obstructive pulmonary disease. 3. Altered mental status secondary to above. 4. Atrial fibrillation. 5. Morbid obesity. PLAN: The patient was seen and evaluated by Dr. Guzmán. He did have a lengthy discussion with family members again regarding the plan of care. She will need tracheostomy and PEG tube placement early next week if she is not transitioned to comfort care per family request by then. In the interim, will continue with full supportive care. She is a DNR/DNI CODE STATUS. Will repeat her chest x-ray, ABGs and labs in the a.m. Will continue with her current medications. Will continue to follow. Critical care time is 36 minutes.
[2016-06-12] MEDS: HYDROmorphone 1 MG/ML 1 ML SYRINGE IVP PRN ×2 (15:11→23:41)
[2016-06-12 15:22] LABS: Glucose,Whole Blood 167 mg/dL (75-99)
[2016-06-12 16:00] LABS: Glucose,Whole Blood 167 mg/dL (75-99)
--- NOTE | 2016-06-12 17:42 | P.PN ---
Subjective Principal diagnosis: Altered mental status, respiratory failure, transient atrial fibrillation and possible aspiration pneumonia and anoxic encephalopathy. This is 75-year-old female was admitted to the hospital with altered mental status, respiratory difficulties and cardiopulmonary arrest. Patient has been on a ventilator. Chest x-ray shows effusions and infiltrates. Patient's also had evidence of possible metabolic encephalopathy. Patient has gone into atrial fibrillation with rapid ventricular response. Patient didn't have bradyarrhythmias in the past and also evidence of multifocal atrial tachycardia. Patient is currently on IV amiodarone with heart rates in the about 100s. Patient also has chronic renal failure with an acute component.. Overall there doesn't seem to be any significant improvement in clinical status . Her heart rate is about 100 t20. Blood pressure is 100/52, we will continue current medical therapy. Prognosis is guarded. The manager estate is a discussing with the family regarding long-term care Objective - Vital Signs Vital signs: Vital Signs Temp 98.7 F 06/12/16 16:00 Pulse 121 H 06/12/16 16:00 Resp 21 06/12/16 16:00 BP 112/56 06/11/16 00:30 Pulse Ox 97 06/12/16 16:00 Intake & Output 06/11/16 06/12/16 06/12/16 18:59 06:59 18:59 Intake Total 2415.243 2236.479 2682.999 Output Total 1217 500 325 Balance 9908.048 2918.479 2357.999 Weight 148 kg Intake: IV 1412.5 1500 1287.5 0.45 1125 1500 1250 Piperacillin-Tazobactam 3 37.5 37.5 .375 gm In Dextrose/Water 1 50ml.bag @ 12.5 mls/hr IVPB Q12HR MARY Rx#: [id number] Sodium Chloride 0.9% 1, 250 000 ml @ 125 mls/hr IV . Q8H MARY Rx#:[id number] Intake, IV Titration 489.743 565.479 397.499 Amount Amiodarone 450 mg In 251.492 191.011 Dextrose 5% in Water 250 ml @ 1 MG/MIN 34.53 mls/ hr IV .Q7H31M MARY Rx#: [id number] Diltiazem 125 mg In 125 Sodium Chloride 0.9% 100 ml @ 5 MG/HR 5 mls/hr IV .Q24H MARY Rx#:[id number] Insulin Regular 100 unit 139.743 201.267 101 In Sodium Chloride 0.9% 100 ml @ Per Protocol IV .Q0M MARY Rx#:[id number] Norepinephrin 16 mg-0.9% 0 12.720 Ns Pmx 16 mg In 250 ml @ Titrate IV .Q0M MARY Rx#: [id number] Propofol 500 mg In Empty 100 100 105.488 Bag 1 bag @ Titrate IV . Q0M MARY Rx#:[id number] Sodium Chloride 0.45% 1, 125 000 ml @ 125 mls/hr IV . Q8H MARY Rx#:[id number] Oral 200 Tube Feeding 513 171 798 Output: Urine 1217 500 325 Other: Voiding Method Indwelling Catheter Indwelling Catheter Indwelling Catheter ABP, PAP, CO, CI - Last Documented Arterial Blood Pressure 100/52 - Exam GENERAL EXAM: Patient is intubated and sedated. HEENT: Normocephalic. NECK: No masses, no nuchal rigidity. CHEST: No chest wall deformity. LUNGS: Diminished breath sounds at bases HEART: S1 and S2 normal with irregular heart sounds ABDOMEN: No hepatosplenomegaly, normal bowel sounds, no guarding or rigidity. SKIN: No rashes CENTRAL NERVOUS SYSTEM: Unresponsive EXTREMITIES: No cyanosis, clubbing or edema. - Labs CBC & Chem 7: 06/12/16 04:25 06/12/16 04:25 Labs: Abnormal Lab Results - Last 24 Hours (Table) 06/11/16 06/11/16 06/11/16 Range/Units 18:22 19:05 21:03 Hgb (11.4-16.0) gm/dL Hct (34.0-46.0) % RDW (11.5-15.5) % Plt Count (150-450) k/uL Lymphocytes # (1.0-4.8) k/uL ABG HCO3 (21-25) mmol/L Chloride (98-107) mmol/L Carbon Dioxide (22-30) mmol/L BUN (7-17) mg/dL Creatinine (0.52-1.04) mg/dL Glucose (74-99) mg/dL POC Glucose (mg/dL) 178 H 190 H 176 H (75-99) mg/dL Calcium (8.4-10.2) mg/dL 06/11/16 06/11/16 06/12/16 Range/Units 22:03 23:03 00:09 Hgb (11.4-16.0) gm/dL Hct (34.0-46.0) % RDW (11.5-15.5) % Plt Count (150-450) k/uL Lymphocytes # (1.0-4.8) k/uL ABG HCO3 (21-25) mmol/L Chloride (98-107) mmol/L Carbon Dioxide (22-30) mmol/L BUN (7-17) mg/dL Creatinine (0.52-1.04) mg/dL Glucose (74-99) mg/dL POC Glucose (mg/dL) 179 H 183 H 181 H (75-99) mg/dL Calcium (8.4-10.2) mg/dL 06/12/16 06/12/16 06/12/16 Range/Units 01:06 02:27 03:15 Hgb (11.4-16.0) gm/dL Hct (34.0-46.0) % RDW (11.5-15.5) % Plt Count (150-450) k/uL Lymphocytes # (1.0-4.8) k/uL ABG HCO3 (21-25) mmol/L Chloride (98-107) mmol/L Carbon Dioxide (22-30) mmol/L BUN (7-17) mg/dL Creatinine (0.52-1.04) mg/dL Glucose (74-99) mg/dL POC Glucose (mg/dL) 183 H 175 H 172 H (75-99) mg/dL Calcium (8.4-10.2) mg/dL 06/12/16 06/12/16 06/12/16 Range/Units 04:25 04:25 04:32 Hgb 10.8 L (11.4-16.0) gm/dL Hct 33.8 L (34.0-46.0) % RDW 15.6 H (11.5-15.5) % Plt Count 82 L (150-450) k/uL Lymphocytes # 0.7 L (1.0-4.8) k/uL ABG HCO3 20 L (21-25) mmol/L Chloride 114 H (98-107) mmol/L Carbon Dioxide 20 L (22-30) mmol/L BUN 88 H* (7-17) mg/dL Creatinine 2.50 H (0.52-1.04) mg/dL Glucose 181 H (74-99) mg/dL POC Glucose (mg/dL) (75-99) mg/dL Calcium 10.4 H (8.4-10.2) mg/dL 06/12/16 06/12/16 06/12/16 Range/Units 04:58 06:49 08:01 Hgb (11.4-16.0) gm/dL Hct (34.0-46.0) % RDW (11.5-15.5) % Plt Count (150-450) k/uL Lymphocytes # (1.0-4.8) k/uL ABG HCO3 (21-25) mmol/L Chloride (98-107) mmol/L Carbon Dioxide (22-30) mmol/L BUN (7-17) mg/dL Creatinine (0.52-1.04) mg/dL Glucose (74-99) mg/dL POC Glucose (mg/dL) 171 H 165 H 153 H (75-99) mg/dL Calcium (8.4-10.2) mg/dL 06/12/16 06/12/16 06/12/16 Range/Units 10:56 11:27 12:25 Hgb (11.4-16.0) gm/dL Hct (34.0-46.0) % RDW (11.5-15.5) % Plt Count (150-450) k/uL Lymphocytes # (1.0-4.8) k/uL ABG HCO3 (21-25) mmol/L Chloride (98-107) mmol/L Carbon Dioxide (22-30) mmol/L BUN (7-17) mg/dL Creatinine (0.52-1.04) mg/dL Glucose (74-99) mg/dL POC Glucose (mg/dL) 155 H 106 H 144 H (75-99) mg/dL Calcium (8.4-10.2) mg/dL 06/12/16 06/12/16 06/12/16 Range/Units 13:21 15:20 15:59 Hgb (11.4-16.0) gm/dL Hct (34.0-46.0) % RDW (11.5-15.5) % Plt Count (150-450) k/uL Lymphocytes # (1.0-4.8) k/uL ABG HCO3 (21-25) mmol/L Chloride (98-107) mmol/L Carbon Dioxide (22-30) mmol/L BUN (7-17) mg/dL Creatinine (0.52-1.04) mg/dL Glucose (74-99) mg/dL POC Glucose (mg/dL) 156 H 167 H 167 H (75-99) mg/dL Calcium (8.4-10.2) mg/dL Assessment and Plan (1) Cardiopulmonary arrest Status: Acute (2) Acute exacerbation of chronic obstructive airways disease Status: Acute (3) Altered mental status Status: Acute (4) Atrial fibrillation Status: Acute (5) Multifocal atrial tachycardia Status: Acute (6) AV block Status: Acute (7) Encephalopathy Status: Acute (8) Persistent atrial fibrillation Status: Acute Plan: No significant improvement in her clinical status. Patient is requiring IV Cordarone therapy to maintain heart rate. There doesn't seem to be significant change in the mental status. It is possible that patient may be considered for comfort care. Prognosis is poor
[2016-06-12 17:58] LABS: Glucose,Whole Blood 140 mg/dL (75-99)
[2016-06-12 19:50] LABS: Glucose,Whole Blood 150 mg/dL (75-99)
[2016-06-12 21:29] LABS: Glucose,Whole Blood 144 mg/dL (75-99)
--- NOTE | 2016-06-12 21:54 | P.PN ---
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 Patient was brought to [facility] emergency room with complaints of shortness of breath and confusion. In the emergency room she was not noticed to be having any respiratory distress or infection. CT scan of the brain was completed. Scan showed small vessel ischemic changes. BUN and creatinine were elevated. Calcium was elevated. Patient was given IV hydration and did improve according to the chart. Patient was admitted the medical floor for telemetry monitoring. Patient had significant worsening and developed respiratory failure. Patient began having bradycardia and the A team was called. On team arrival, patient was blue. Patient was immediately intubated and transferred to the ICU. Attempts to wean the patient off sedation were unsuccessful as the patient continues to be unresponsive. Neurology was consulted. Repeat CT of the brain was done which showed no changes from the previous study. Patient still has renal insufficiency. Chest x-ray was completed which showed bibasilar infiltrates. CBC noted anemia. Patient also has thrombocytopenia. Urinalysis was normal. EEG showed moderate to severe encephalopathy. No seizure-like activity was seen. Patient intermittently will open her eyes but it does not appear to be any persistent manner. Patient has not made any improvement day over day. Patient was sedated on a ventilator on contact. Per nursing there has been no improvement in the patient 's status in the last 24 hours. Objective - Vital Signs Vital signs: Vital Signs Temp 98.9 F 06/12/16 20:00 Pulse 96 06/12/16 21:00 Resp 27 H 06/12/16 21:00 BP 112/56 06/11/16 00:30 Pulse Ox 98 06/12/16 21:00 Intake & Output 06/12/16 06/12/16 06/13/16 06:59 18:59 06:59 Intake Total 2236.479 3090.999 497.992 Output Total 500 370 85 Balance 7825.888 2700.999 412.992 Weight 148 kg Intake: IV 1500 1537.5 375 0.45 1500 1500 375 Piperacillin-Tazobactam 3 37.5 .375 gm In Dextrose/Water 1 50ml.bag @ 12.5 mls/hr IVPB Q12HR [facility] Rx#: [id number] Intake, IV Titration 565.479 498.499 65.992 Amount Amiodarone 450 mg In 251.492 191.011 Dextrose 5% in Water 250 ml @ 1 MG/MIN 34.53 mls/ hr IV .Q7H31M [facility] Rx#: [id number] Insulin Regular 100 unit 201.267 202 15.992 In Sodium Chloride 0.9% 100 ml @ Per Protocol IV .Q0M [facility] Rx#:[id number] Norepinephrin 16 mg-0.9% 12.720 Ns Pmx 16 mg In 250 ml @ Titrate IV .Q0M [facility] Rx#: [id number] Propofol 500 mg In Empty 100 105.488 50 Bag 1 bag @ Titrate IV . Q0M [facility] Rx#:[id number] Oral 200 Tube Feeding 171 855 57 Output: Urine 500 370 85 Other: Voiding Method Indwelling Catheter Indwelling Catheter Indwelling Catheter ABP, PAP, CO, CI - Last Documented Arterial Blood Pressure 143/61 - Exam Constitutional: mildly obese, elderly female, intubated HEENT: NC/AT, no facial asymmetry is seen, endotracheal tube is intact. Neck is supple with no masses felt. 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 Neurological: does open her eyes spontaneously but not consistently 1 requested or prompted. Does not follow any verbal commands. Does not grimace to painful stimuli in all 4 extremities. Does not withdraw her extremities. Tone is flaccid. Brainstem reflexes showed intact. Corneal reflexes and oculocephalic reflex. Pupillary reflex is present but sluggish. No seizure activity is seen. No obvious facial asymmetry is noticed on cranial nerve testing. Integementary: no rash, no erythema Psychiatric: mood and affect absent - Labs CBC & Chem 7: 06/12/16 04:25 06/12/16 04:25 Labs: Abnormal Lab Results - Last 24 Hours (Table) 06/11/16 06/11/16 06/12/16 Range/Units 22:03 23:03 00:09 Hgb (11.4-16.0) gm/dL Hct (34.0-46.0) % RDW (11.5-15.5) % Plt Count (150-450) k/uL Lymphocytes # (1.0-4.8) k/uL ABG HCO3 (21-25) mmol/L Chloride (98-107) mmol/L Carbon Dioxide (22-30) mmol/L BUN (7-17) mg/dL Creatinine (0.52-1.04) mg/dL Glucose (74-99) mg/dL POC Glucose (mg/dL) 179 H 183 H 181 H (75-99) mg/dL Calcium (8.4-10.2) mg/dL 06/12/16 06/12/16 06/12/16 Range/Units 01:06 02:27 03:15 Hgb (11.4-16.0) gm/dL Hct (34.0-46.0) % RDW (11.5-15.5) % Plt Count (150-450) k/uL Lymphocytes # (1.0-4.8) k/uL ABG HCO3 (21-25) mmol/L Chloride (98-107) mmol/L Carbon Dioxide (22-30) mmol/L BUN (7-17) mg/dL Creatinine (0.52-1.04) mg/dL Glucose (74-99) mg/dL POC Glucose (mg/dL) 183 H 175 H 172 H (75-99) mg/dL Calcium (8.4-10.2) mg/dL 06/12/16 06/12/16 06/12/16 Range/Units 04:25 04:25 04:32 Hgb 10.8 L (11.4-16.0) gm/dL Hct 33.8 L (34.0-46.0) % RDW 15.6 H (11.5-15.5) % Plt Count 82 L (150-450) k/uL Lymphocytes # 0.7 L (1.0-4.8) k/uL ABG HCO3 20 L (21-25) mmol/L Chloride 114 H (98-107) mmol/L Carbon Dioxide 20 L (22-30) mmol/L BUN 88 H* (7-17) mg/dL Creatinine 2.50 H (0.52-1.04) mg/dL Glucose 181 H (74-99) mg/dL POC Glucose (mg/dL) (75-99) mg/dL Calcium 10.4 H (8.4-10.2) mg/dL 06/12/16 06/12/16 06/12/16 Range/Units 04:58 06:49 08:01 Hgb (11.4-16.0) gm/dL Hct (34.0-46.0) % RDW (11.5-15.5) % Plt Count (150-450) k/uL Lymphocytes # (1.0-4.8) k/uL ABG HCO3 (21-25) mmol/L Chloride (98-107) mmol/L Carbon Dioxide (22-30) mmol/L BUN (7-17) mg/dL Creatinine (0.52-1.04) mg/dL Glucose (74-99) mg/dL POC Glucose (mg/dL) 171 H 165 H 153 H (75-99) mg/dL Calcium (8.4-10.2) mg/dL 06/12/16 06/12/16 06/12/16 Range/Units 10:56 11:27 12:25 Hgb (11.4-16.0) gm/dL Hct (34.0-46.0) % RDW (11.5-15.5) % Plt Count (150-450) k/uL Lymphocytes # (1.0-4.8) k/uL ABG HCO3 (21-25) mmol/L Chloride (98-107) mmol/L Carbon Dioxide (22-30) mmol/L BUN (7-17) mg/dL Creatinine (0.52-1.04) mg/dL Glucose (74-99) mg/dL POC Glucose (mg/dL) 155 H 106 H 144 H (75-99) mg/dL Calcium (8.4-10.2) mg/dL 06/12/16 06/12/16 06/12/16 Range/Units 13:21 15:20 15:59 Hgb (11.4-16.0) gm/dL Hct (34.0-46.0) % RDW (11.5-15.5) % Plt Count (150-450) k/uL Lymphocytes # (1.0-4.8) k/uL ABG HCO3 (21-25) mmol/L Chloride (98-107) mmol/L Carbon Dioxide (22-30) mmol/L BUN (7-17) mg/dL Creatinine (0.52-1.04) mg/dL Glucose (74-99) mg/dL POC Glucose (mg/dL) 156 H 167 H 167 H (75-99) mg/dL Calcium (8.4-10.2) mg/dL 06/12/16 06/12/16 06/12/16 Range/Units 17:46 19:47 21:28 Hgb (11.4-16.0) gm/dL Hct (34.0-46.0) % RDW (11.5-15.5) % Plt Count (150-450) k/uL Lymphocytes # (1.0-4.8) k/uL ABG HCO3 (21-25) mmol/L Chloride (98-107) mmol/L Carbon Dioxide (22-30) mmol/L BUN (7-17) mg/dL Creatinine (0.52-1.04) mg/dL Glucose (74-99) mg/dL POC Glucose (mg/dL) 140 H 150 H 144 H (75-99) mg/dL Calcium (8.4-10.2) mg/dL Assessment and Plan (1) Encephalopathy Narrative/Plan: acute multifactorial Status: Acute (2) Acute on chronic respiratory failure with hypoxemia Narrative/Plan: anoxic brain injury Status: Acute (3) Generalized weakness Status: Acute (4) Pneumonia Status: Acute (5) Thrombocytopenia Status: Acute Plan: Patient has appeared to have suffered an anoxic brain injury given the presentation as noted above. EEG showed moderate to severe encephalopathy. Patient appeared to decline somewhat in the last 24 hours. Patient has infectious and metabolic causes for worsening of her encephalopathy. Recommend continuing IV hydration and antibiotic therapy. CT of the brain showed no acute intracranial abnormalities. At this time the prognosis is poor. Continue supportive care. Continue neurological checks as scheduled. Status: Patient's overall prognosis is poor. Recommend discussion regarding comfort care. Neurology will continue to follow on as-needed basis. Overall prognosis is poor. I discussed the patient's pertinent medical information with Dr. Hernandez. He agrees with the plan of care as implemented.
[2016-06-12 22:20] LABS: Glucose,Whole Blood 138 mg/dL (75-99)
[2016-06-12] MEDS ORDERED: SODIUM CHLORIDE 0.9% 1,000 ML IV ONE (22:33)
[2016-06-12] MEDS: SODIUM CHLORIDE 0.9% 1,000 ML IV SCH ×2 (22:37→23:44)
[2016-06-12 23:05] LABS: Glucose,Whole Blood 137 mg/dL (75-99)
[2016-06-13 00:06] LABS: Glucose,Whole Blood 149 mg/dL (75-99)
[2016-06-13 01:04] LABS: Glucose,Whole Blood 143 mg/dL (75-99)
[2016-06-13] MEDS: INSULIN REGULAR 100 UNIT in SODIUM CHLORIDE 0.9% 100 ML IV SCH ×2 (01:06→08:14)
[2016-06-13] MEDS: LEVALBUTEROL NEB (CONC) 1.25 MG/0.5 ML AMP INHALATION SCH ×2 (02:34→07:16)
[2016-06-13] MEDS: IPRATROPIUM 0.5 MG/2.5 ML NEBU INHALATION SCH ×2 (02:34→07:16)
[2016-06-13] MEDS ORDERED: SODIUM CHLORIDE 0.9% 1,000 ML IV ONE (03:00)
[2016-06-13 03:51] LABS: Glucose,Whole Blood 210 mg/dL (75-99)
[2016-06-13] MEDS: PROPOFOL 500 MG in EMPTY BAG 1 BAG IV SCH ×2 (03:51→07:15)
[2016-06-13] MEDS: DILTIAZEM 125 MG in SODIUM CHLORIDE 0.9% 100 ML IV SCH (04:00)
[2016-06-13 04:42] LABS: Calcium 9.9 mg/dL (8.4-10.2); Magnesium 2.1 mg/dL (1.6-2.3); Phosphorous 5.9 mg/dL (2.5-4.5)
[2016-06-13 05:04] LABS: ABG Base Excess -8.7 mmol/L; ABG HCO3 16 mmol/L (21-25); ABG PCO2 34 mmHg (35-45); ABG PH 7.31 (7.35-7.45); ABG PO2 92 mmHg (83-108); ABG TCO2 18 mmol/L (19-24)
[2016-06-13 05:15] LABS: CH 27.3; CHCM 29.9; HCT 32.8 % (34.0-46.0); HDW 3.23; HGB 9.7 gm/dL (11.4-16.0); Hypochromasia Marked; Large Platelets Flag Slight; MCH 27.2 pg (25.0-35.0); MCHC 29.6 g/dL (31.0-37.0); MCV 91.7 fL (80.0-100.0); Mean Platelet Volume 11.2; RBC 3.58 m/uL (3.80-5.40); RDW 15.6 % (11.5-15.5); WBC (Perox) 8.37
[2016-06-13] MEDS: AMIODARONE 450 MG in DEXTROSE 5% IN WATER 250 ML IV SCH ×2 (05:31)
[2016-06-13 05:33] LABS: Glucose,Whole Blood 285 mg/dL (75-99)
[2016-06-13] MEDS: methylPREDNISolone SOD SUCCI 125 MG/2 ML VIAL IV SCH (05:40)
[2016-06-13] MEDS: LEVOTHYROXINE 125 MCG TAB PO SCH (05:44)
[2016-06-13 06:12] LABS: Glucose,Whole Blood 260 mg/dL (75-99)
[2016-06-13 06:12] LABS: Glucose,Whole Blood 313 mg/dL (75-99)
[2016-06-13 06:52] LABS: Add Differential Manual Differential
[2016-06-13 06:59] LABS: Band Neutrophils % 8.5 %; Nucleated Red Blood Cells 7 /100 WBC (0-0); Total Cells Counted 200; WBC 7.7 k/uL (3.8-10.6)
[2016-06-13 07:00] LABS: Polychromasia Present
[2016-06-13 07:04] LABS: Glucose,Whole Blood 261 mg/dL (75-99)
[2016-06-13] MEDS: FORMOTEROL FUMARATE 20 MCG/2 ML NEBU INHALATION SCH (07:15)
[2016-06-13] MEDS: BUDESONIDE 1 MG/2 ML NEBU INHALATION SCH (07:15)
[2016-06-13 08:00] LABS: Glucose,Whole Blood 252 mg/dL (75-99)
[2016-06-13] MEDS: INSULIN LISPRO (humaLOG) 300 UNIT/3 ML VIAL SQ SCH (08:09)
--- NOTE | 2016-06-13 08:49 | XR ---
EXAMINATION TYPE: XR chest 1V portable DATE OF EXAM: 06/13/2016 6:21 AM COMPARISON: 06/12/2016 INDICATION: Difficulty breathing, previous abnormal chest TECHNIQUE: Single frontal view of the chest is obtained. Patient is rotated to the left. Images in th e semiupright position FINDINGS: The heart size is normal. The pulmonary vasculature is normal. Stable left pleural effusion and/or infiltrate is present. Endotracheal tube is present with tip abov e the karson. Nasogastric tube transverses the thorax. IMPRESSION: 1. Left lower lobe infiltrate or pleural effusion. 2. Lines and catheters discussed above.
[2016-06-13] MEDS: CYANOCOBALAMIN 500 MCG TAB PO SCH (08:59)
[2016-06-13] MEDS: PIPERACILLIN-TAZOBACTAM 3.375 GM in DEXTROSE/WATER 1 50ML.BAG IVPB SCH (08:59)
[2016-06-13] MEDS: CHLORHEXIDINE GLUCONATE 15 ML CUP MUCOUS MEM SCH (08:59)
[2016-06-13] MEDS: ENOXAPARIN 150 MG/ML SYRINGE SQ SCH (08:59)
[2016-06-13] MEDS: ASPIRIN 325 MG TAB PO SCH (08:59)
[2016-06-13] MEDS: PANTOPRAZOLE 40 MG/10 ML VIAL IVP SCH (09:00)
[2016-06-13] MEDS: FLUoxetine HCL 20 MG CAP PO SCH (09:00)
[2016-06-13 09:04] LABS: Glucose,Whole Blood 262 mg/dL (75-99)
[2016-06-13 10:08] LABS: Glucose,Whole Blood 196 mg/dL (75-99)
[2016-06-13] MEDS ORDERED: LORazepam 2 MG/ML SYRINGE IV PRN (10:56)
[2016-06-13] MEDS ORDERED: SODIUM CHLORIDE 0.9% 1,000 ML IV SCH (11:00)
[2016-06-13 11:01] LABS: Glucose,Whole Blood 187 mg/dL (75-99)
--- NOTE | 2016-06-13 11:56 | P.PN ---
Subjective Principal diagnosis: Acute respiratory failure History present illness: This 75-year-old female was admitted to the hospital for altered mental status. Patient subsequently had a cardiopulmonary arrest. She is on a ventilator. Patient's been off sedation. There is not much of a mental activity she seems to open her eyes when she is addressed by her name. No motion of any of the extremities with painful stimulus. She is continued on the ventilator at 40% FiO2 and a PEEP of 5 maintaining adequate oxygenation. She continues to be in atrial fibrillation rate still hovering around 110. The patient has a Small catheter with adequate urine output. She does have acute on chronic renal failure. The patient does have some anasarca. Patient's on tube feedings. Patient's general condition has not changed at all. No neurological change. Continue same respiratory status and cardiac status. Patient has increasing anasarca. Decreased urine output. Renal function has worsened. Review of system Unable to obtain from patient. Per nursing low-grade temperatures periodically. No reported bleeding, skin intact, does have anasarca. Does have a Small catheter and a feeding tube. Patient maintained on a ventilator. Decreased urine output. Did receive some 2 L of fluids last night for hypotension. Increased anasarca Objective - Vital Signs Vital signs: Vital Signs Temp 99.7 F H 06/13/16 08:00 Pulse 107 H 06/13/16 11:00 Resp 30 H 06/13/16 11:00 BP 112/56 06/11/16 00:30 Pulse Ox 97 06/13/16 11:00 Intake & Output 06/12/16 06/13/16 06/13/16 18:59 06:59 18:59 Intake Total 3215.999 4820.450 1127.004 Output Total 370 295 100 Balance 2845.999 4525.450 1027.004 Weight 155 kg Intake: IV 1537.5 625 37.5 0.45 1500 625 Piperacillin-Tazobactam 3 37.5 37.5 .375 gm In Dextrose/Water 1 50ml.bag @ 12.5 mls/hr IVPB Q12HR [facility] Rx#: [id number] Intake, IV Titration 860.751 5912.450 747.504 Amount Amiodarone 450 mg In 259 Dextrose 5% in Water 250 ml @ 0.5 MG/MIN 17.26 mls /hr IV .Q15H1M [facility] Rx#: [id number] Amiodarone 450 mg In 191.011 Dextrose 5% in Water 250 ml @ 1 MG/MIN 34.53 mls/ hr IV .Q7H31M [facility] Rx#: [id number] Diltiazem 125 mg In 125 Sodium Chloride 0.9% 100 ml @ 5 MG/HR 5 mls/hr IV .Q24H [facility] Rx#:[id number] Insulin Regular 100 unit 202 196.378 52.280 In Sodium Chloride 0.9% 100 ml @ Per Protocol IV .Q0M [facility] Rx#:[id number] Propofol 500 mg In Empty 105.488 135.072 70.224 Bag 1 bag @ Titrate IV . Q0M [facility] Rx#:[id number] Sodium Chloride 0.9% 1, 750 625 000 ml @ 125 mls/hr IV . Q8H [facility] Rx#:[id number] Sodium Chloride 0.9% 1, 1000 000 ml @ 999 mls/hr IV . Q1H1M [facility] Rx#:[id number] Sodium Chloride 0.9% 1, 1000 000 ml @ 999 mls/hr IV . Q1H1M [facility] Rx#:[id number] Oral 200 Tube Feeding 855 855 342 Output: Urine 370 292 100 Emesis 3 Other: Voiding Method Indwelling Catheter Indwelling Catheter ABP, PAP, CO, CI - Last Documented Arterial Blood Pressure 115/50 PHYSICAL EXAMINATION: Unresponsive on a ventilator HEENT: No JVD appreciated. Patient has an ET and the feeding tube in place Chest: Decreased airflow especially at the bases more left than right Cardiac: Normal S1 and S2 irregularly irregular with a rate of 110. Distant heart sounds no gallops systolic murmur 2/6 left sternal border. Abdomen: Protuberant and soft suspect ascites bowel sounds present. Extremities: 3+ edema Neurologically: Patient is unresponsive does try to open her eyes when called but no other purposeful on unpurposeful movements. Patient does not respond much to pain. - Labs CBC & Chem 7: 06/13/16 04:00 06/13/16 04:00 Labs: Abnormal Lab Results - Last 24 Hours (Table) 06/12/16 06/12/16 06/12/16 Range/Units 12:25 13:21 15:20 RBC (3.80-5.40) m/uL Hgb (11.4-16.0) gm/dL Hct (34.0-46.0) % MCHC (31.0-37.0) g/dL RDW (11.5-15.5) % Plt Count (150-450) k/uL Nucleated RBCs (0-0) /100 WBC ABG pH (7.35-7.45) ABG pCO2 (35-45) mmHg ABG HCO3 (21-25) mmol/L ABG Total CO2 (19-24) mmol/L Chloride (98-107) mmol/L Carbon Dioxide (22-30) mmol/L BUN (7-17) mg/dL Creatinine (0.52-1.04) mg/dL Glucose (74-99) mg/dL POC Glucose (mg/dL) 144 H 156 H 167 H (75-99) mg/dL Phosphorus (2.5-4.5) mg/dL 06/12/16 06/12/16 06/12/16 Range/Units 15:59 17:46 19:47 RBC (3.80-5.40) m/uL Hgb (11.4-16.0) gm/dL Hct (34.0-46.0) % MCHC (31.0-37.0) g/dL RDW (11.5-15.5) % Plt Count (150-450) k/uL Nucleated RBCs (0-0) /100 WBC ABG pH (7.35-7.45) ABG pCO2 (35-45) mmHg ABG HCO3 (21-25) mmol/L ABG Total CO2 (19-24) mmol/L Chloride (98-107) mmol/L Carbon Dioxide (22-30) mmol/L BUN (7-17) mg/dL Creatinine (0.52-1.04) mg/dL Glucose (74-99) mg/dL POC Glucose (mg/dL) 167 H 140 H 150 H (75-99) mg/dL Phosphorus (2.5-4.5) mg/dL 06/12/16 06/12/16 06/12/16 Range/Units 21:28 22:18 23:04 RBC (3.80-5.40) m/uL Hgb (11.4-16.0) gm/dL Hct (34.0-46.0) % MCHC (31.0-37.0) g/dL RDW (11.5-15.5) % Plt Count (150-450) k/uL Nucleated RBCs (0-0) /100 WBC ABG pH (7.35-7.45) ABG pCO2 (35-45) mmHg ABG HCO3 (21-25) mmol/L ABG Total CO2 (19-24) mmol/L Chloride (98-107) mmol/L Carbon Dioxide (22-30) mmol/L BUN (7-17) mg/dL Creatinine (0.52-1.04) mg/dL Glucose (74-99) mg/dL POC Glucose (mg/dL) 144 H 138 H 137 H (75-99) mg/dL Phosphorus (2.5-4.5) mg/dL 06/13/16 06/13/16 06/13/16 Range/Units 00:05 01:03 03:50 RBC (3.80-5.40) m/uL Hgb (11.4-16.0) gm/dL Hct (34.0-46.0) % MCHC (31.0-37.0) g/dL RDW (11.5-15.5) % Plt Count (150-450) k/uL Nucleated RBCs (0-0) /100 WBC ABG pH (7.35-7.45) ABG pCO2 (35-45) mmHg ABG HCO3 (21-25) mmol/L ABG Total CO2 (19-24) mmol/L Chloride (98-107) mmol/L Carbon Dioxide (22-30) mmol/L BUN (7-17) mg/dL Creatinine (0.52-1.04) mg/dL Glucose (74-99) mg/dL POC Glucose (mg/dL) 149 H 143 H 210 H (75-99) mg/dL Phosphorus (2.5-4.5) mg/dL 06/13/16 06/13/16 06/13/16 Range/Units 04:00 04:00 04:23 RBC 3.58 L (3.80-5.40) m/uL Hgb 9.7 L (11.4-16.0) gm/dL Hct 32.8 L (34.0-46.0) % MCHC 29.6 L (31.0-37.0) g/dL RDW 15.6 H (11.5-15.5) % Plt Count 98 L (150-450) k/uL Nucleated RBCs 7 H (0-0) /100 WBC ABG pH 7.31 L (7.35-7.45) ABG pCO2 34 L (35-45) mmHg ABG HCO3 16 L (21-25) mmol/L ABG Total CO2 18 L (19-24) mmol/L Chloride 112 H (98-107) mmol/L Carbon Dioxide 15 L (22-30) mmol/L BUN 103 H* (7-17) mg/dL Creatinine 2.90 H (0.52-1.04) mg/dL Glucose 213 H (74-99) mg/dL POC Glucose (mg/dL) (75-99) mg/dL Phosphorus 5.9 H (2.5-4.5) mg/dL 06/13/16 06/13/16 06/13/16 Range/Units 05:27 06:04 06:10 RBC (3.80-5.40) m/uL Hgb (11.4-16.0) gm/dL Hct (34.0-46.0) % MCHC (31.0-37.0) g/dL RDW (11.5-15.5) % Plt Count (150-450) k/uL Nucleated RBCs (0-0) /100 WBC ABG pH (7.35-7.45) ABG pCO2 (35-45) mmHg ABG HCO3 (21-25) mmol/L ABG Total CO2 (19-24) mmol/L Chloride (98-107) mmol/L Carbon Dioxide (22-30) mmol/L BUN (7-17) mg/dL Creatinine (0.52-1.04) mg/dL Glucose (74-99) mg/dL POC Glucose (mg/dL) 285 H 313 H 260 H (75-99) mg/dL Phosphorus (2.5-4.5) mg/dL 06/13/16 06/13/16 06/13/16 Range/Units 07:03 07:58 09:03 RBC (3.80-5.40) m/uL Hgb (11.4-16.0) gm/dL Hct (34.0-46.0) % MCHC (31.0-37.0) g/dL RDW (11.5-15.5) % Plt Count (150-450) k/uL Nucleated RBCs (0-0) /100 WBC ABG pH (7.35-7.45) ABG pCO2 (35-45) mmHg ABG HCO3 (21-25) mmol/L ABG Total CO2 (19-24) mmol/L Chloride (98-107) mmol/L Carbon Dioxide (22-30) mmol/L BUN (7-17) mg/dL Creatinine (0.52-1.04) mg/dL Glucose (74-99) mg/dL POC Glucose (mg/dL) 261 H 252 H 262 H (75-99) mg/dL Phosphorus (2.5-4.5) mg/dL 06/13/16 06/13/16 Range/Units 10:05 10:59 RBC (3.80-5.40) m/uL Hgb (11.4-16.0) gm/dL Hct (34.0-46.0) % MCHC (31.0-37.0) g/dL RDW (11.5-15.5) % Plt Count (150-450) k/uL Nucleated RBCs (0-0) /100 WBC ABG pH (7.35-7.45) ABG pCO2 (35-45) mmHg ABG HCO3 (21-25) mmol/L ABG Total CO2 (19-24) mmol/L Chloride (98-107) mmol/L Carbon Dioxide (22-30) mmol/L BUN (7-17) mg/dL Creatinine (0.52-1.04) mg/dL Glucose (74-99) mg/dL POC Glucose (mg/dL) 196 H 187 H (75-99) mg/dL Phosphorus (2.5-4.5) mg/dL Assessment and Plan Plan: ASSESSMENT: 1. Acute respiratory failure. 2. Ventilatory support. 3. Hypoventilation syndrome with obesity. 4. Atrial fibrillation rapid ventricular rate new-onset. 5. Acute on chronic renal failure. 6. Pleural effusion. 7. Cannot rule out to pneumonia. 8. Diabetes mellitus 9. Encephalopathy both metabolic and anoxic. 10. Anasarca 11. Thrombocytopenia PLAN: Patient's condition is discussed with the patient and family. The 2 daughters present. Patient's condition is poor. Patient's prognosis is poor. This is also been mentioned to them by Dr. Guzmán from intensive care. The patient's condition is worsening despite present medical care. The family is in agreement to discontinue the supportive care and make patient comfort care. All the questions concerns were answered. Patient will be discontinued for the ventilator although IV fluids IV medications hemodynamic support and be placed on Dilaudid drip. is eminent
[2016-06-13] MEDS ORDERED: SCOPOLAMINE 1.5MG/72HR PATCH TRANSDERM SCH (12:00)
[2016-06-13] MEDS ORDERED: HYDROmorphone (PF) 50 MG in SODIUM CHLORIDE 0.9% 245 ML IV SCH (12:00)
[2016-06-13 12:10] VITALS: TEMP 98.8
--- NOTE | 2016-06-13 14:26 | PN ---
DATE OF SERVICE: 06/13/2016 This is a 75-year-old female patient who was admitted back on June 07, 2016 with complaints of increasing shortness of breath. She had subsequently developed a cardiopulmonary arrest on the sixth floor and was transferred in the intensive care unit, intubated and placed on mechanical ventilator. She has had poor response neurologically and has not shown much improvement. Her current vent settings are assist control 24, tidal volume 400, FiO2 of 40% and a PEEP of 5. Morning blood gases reveal a pO2 of 92, pCO2 34 and a pH of 7.31. She has had ongoing issues with atrial fibrillation with a rapid ventricular response as well hypotension. Last evening she received 2 liters of fluid boluses to maintain blood pressures greater than 90 systolic. Her other drips are propofol at 20 mcg/kg per minute, amiodarone at 0.5 mg per minute, Cardizem 15 mg per hour. She is being nourished with Vital HP at 57 mL per hour. Her chest x-ray shows mild fluid volume overload. She has been somewhat asynchronous with the vent. On physical exam, she remains intubated and sedated. Vital signs reveal blood pressure 115/54, heart rate 121, respirations 16, temperature 97.2 axillary. She is 96% O2 saturation on 40% FiO2. She is morbidly obese. Her head is normocephalic. Sclerae anicteric. Oral endotracheal and gastric tubes are secured in place. Her neck is short. Her lungs have few scattered rhonchi, crackles in the posterior bases. Her heart is irregularly irregular. S1, S2. Her abdomen is obese, soft. There is 2+ peripheral edema. No clubbing. No cyanosis. Peripheral pulses are intact. INVESTIGATIONS: Chest x-ray reveals left lower lobe infiltrate/effusion with some evidence of mild fluid volume overload. Lab results reveal WBC 7.7, hemoglobin 9.7, platelet count 98,000. Sodium 137, potassium 5.0, chloride 112, CO2 of 15, BUN 103, creatinine 2.90. Medications are reviewed IMPRESSION: 1. Acute on chronic hypoxic respiratory failure secondary to cardiopulmonary arrest. 2. Acute exacerbation of chronic obstructive pulmonary disease. 3. Altered mental status secondary to above. 4. Atrial fibrillation with rapid ventricular response. 5. Acute renal failure secondary to hypotension. 6. Morbid obesity. PLAN: The patient was seen and evaluated by Dr. Guzmán. Her chest x-ray and labs were reviewed. The patient's overall prognosis remains quite poor at this point. No real response neurologically. He did have extensive discussion with the family yesterday and will plan on today again. She does remain a DNR CODE STATUS. If they wish to proceed she will need tracheostomy and PEG tube placement early this week. In the interim, we will continue with her current medications. Will continue with her current medications Will repeat her chest x-ray, labs and ABGs in the a.m. We will continue to follow. Critical care time: 34 minutes.
[2016-06-13 14:37] VITALS: BP 98/65
[2016-06-13 15:37] VITALS: PULSE 103; RESP 31
--- NOTE | 2016-06-20 14:20 | P.DS ---
Providers Date of admission: 06/07/16 15:16 Attending physician: Lucas Montoya Consults: 06/08/16 08:17 Consult Physician Stat Consulting Provider: José Antonio Guzmán Consult Reason/Comments: intensive care management Do you want consulting provider notified?: Yes Consult Physician Urgent Consulting Provider: Prince Morgan Consult Reason/Comments: a-fib and elevated troponin Do you want consulting provider notified?: Yes 06/09/16 07:50 Consult Physician Urgent Consulting Provider: Carolina Hernandez Consult Reason/Comments: encephalopathy Do you want consulting provider notified?: Already Contacted Primary care physician: Lucas Montoya [facility] Course: This 75-year-old female was admitted to the hospital after presenting to the emergency room with complaint of weakness and some confusion. Patient was running by family. The patient had woken up in the morning point reasonably well 8 some breakfast and then became more unresponsive. The patient's brought in by EMS and noted to have lethargy. Patient appeared mildly dehydrated also was noted to have mild elevation CO2 and a pH of 7.33. Patient has no clear history of COPD in the past she does have history of diabetes mellitus with complications of peripheral arterial disease, peripheral neuritis, chronic kidney disease stage III. 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 The patient recently had Hospital with mild hypercalcemia and dehydration. Her symptoms had improved with hydration back to her usual status she was able to ambulate with no difficulty prior to discharge. The patient at that time was eating well. The patient following discharge was discontinued from hydrochlorothiazide due to the mild hypercalcemia. Denied any fever or chills. The patient following admission in the evening did become more alert. Per nursing the patient came the night and arousable with no difficulty however at 6:00 in the morning patient suddenly was noted to be bradycardic and CPR initiated. Patient intubated and admitted to the hospital ICU. Patient was seen by claim administrator and welfare worker. Patient maintained on the ventilator with all the usual precautions with maintaining adequate oxygenation. Her renal function continues to deteriorate. The patient required hemodynamic support initially.. She did require increase fluids. The patient exhibited evidence of encephalopathy. Neurologist did see the patient. It is felt the patient had both anoxic and metabolic encephalopathy. Patient also an atrial fibrillation rapid ventricular rate. Patient was placed on Cardizem and then amiodarone. Patient was also placed on anticoagulation. Due to no improvement in her status it was discussed with patient's family both myself and the nursing staff and the claim administrator. They did agree that the patient would have not wanted to be on life support , and elected weaning. All measures were stopped patient was made comfortable and she passed on 06/15/2016. Exact cause of cardiopulmonary arrest was unclear. The pathologist felt the patient has had chronic COPD. The patient has had no previous treatment for COPD. Final diagnosis to include 1. Cardiopulmonary arrest 2. Atherosclerotic heart disease 3. Diabetes mellitus with complications of peripheral arterial disease, peripheral neuropathy, chronic kidney disease. 4. Acute on chronic renal failure 5. Mild hypercalcemia 6. Recent pancreatitis. 7. Atrial fibrillation new onset with rapid ventricular rate 8. Metabolic and anoxic encephalopathy 9. Obesity 10. Acute respiratory failure 11. Hypotensive/shock Patient Condition at Discharge: Serious Plan - Discharge Summary Discharge Medication List Cyanocobalamin [Vitamin B-12] 1,000 mcg PO DAILY 08/16/15 [History] Gabapentin [Neurontin] 300 mg PO Q4H 08/16/15 [History] Loratadine [Claritin] 10 mg PO DAILY 08/16/15 [History] Melatonin 3 mg PO HS 08/16/15 [History] Ranitidine HCl [Zantac] 150 mg PO BID 08/16/15 [History] Atenolol [Tenormin] 25 mg PO DAILY 08/19/15 [History] Benazepril [Lotensin] 20 mg PO DAILY 08/19/15 [History] Gabapentin 600 mg PO HS 08/19/15 [History] Insulin NPH Hum/Reg Insulin Hm [NovoLIN 70-30 100 UNIT/ML VIAL] 60 unit SQ AC- TID 08/19/15 [History] Doxycycline Hyclate 100 mg PO Q48H 08/21/15 [History] ALPRAZolam [Xanax] 0.5 mg PO TID tab 08/23/15 [Rx] Lovastatin 40 mg PO HS 09/26/15 [History] Meclizine [Antivert] 12.5 mg PO BID 09/26/15 [History] metFORMIN HCL [Glucophage] 850 mg PO DAILY 09/26/15 [History] Aspirin EC [Ecotrin] 325 mg PO DAILY 06/01/16 [History] FLUoxetine HCL [PROzac] 40 mg PO DAILY 06/01/16 [History] Levothyroxine Sodium [Synthroid] 125 mcg PO DAILY 06/01/16 [History] Follow up Appointment(s)/Referral(s): Lucas Montoya MD [Primary Care Provider] - 1-2 days [facility]charge [facility]
== END 2016-06-13 15:36 | disposition hospice, inpatient (51) | DRG 207 ==
LOC: EC 10:12 → 6SEL 15:16 → 6ICU 06-08 06:08
PROVIDERS: ADMIT Internal Medicine; ATTEND Internal Medicine
PROC: 0T9B70Z Drainage of Bladder with Drainage Device, Via Natural or Artificial Opening (ICD-10-PCS; 2016-06-07)
PROC: 5A1955Z Respiratory Ventilation, Greater than 96 Consecutive Hours (ICD-10-PCS; principal; 2016-06-08)
PROC: 03HY32Z Insertion of Monitoring Device into Upper Artery, Percutaneous Approach (ICD-10-PCS; 2016-06-08)
PROC: 5A12012 Performance of Cardiac Output, Single, Manual (ICD-10-PCS; 2016-06-08)
PROC: 0BH17EZ Insertion of Endotracheal Airway into Trachea, Via Natural or Artificial Opening (ICD-10-PCS; 2016-06-08)
PROC: 0DH67UZ Insertion of Feeding Device into Stomach, Via Natural or Artificial Opening (ICD-10-PCS; 2016-06-08)
PROC: 3E0G76Z Introduction of Nutritional Substance into Upper GI, Via Natural or Artificial Opening (ICD-10-PCS; 2016-06-08)
PROC: 4A133B1 Monitoring of Arterial Pressure, Peripheral, Percutaneous Approach (ICD-10-PCS; 2016-06-08)
PROC: 4A143B0 Monitoring of Venous Pressure, Central, Percutaneous Approach (ICD-10-PCS; 2016-06-10)
PROC: 4A133J1 Monitoring of Arterial Pulse, Peripheral, Percutaneous Approach (ICD-10-PCS; 2016-06-10)
PROC: 02H633Z Insertion of Infusion Device into Right Atrium, Percutaneous Approach (ICD-10-PCS; 2016-06-10)
DX: J44.1 Chronic obstructive pulmonary disease with (acute) exacerbation (principal); N17.0 Acute kidney failure with tubular necrosis; I46.9 Cardiac arrest, cause unspecified; J69.0 Pneumonitis due to inhalation of food and vomit; J96.21 Acute and chronic respiratory failure with hypoxia; R57.9 Shock, unspecified; G93.41 Metabolic encephalopathy; G93.1 Anoxic brain damage, not elsewhere classified; E87.2 Acidosis; D69.6 Thrombocytopenia, unspecified; J96.22 Acute and chronic respiratory failure with hypercapnia; I13.0 Hypertensive heart and chronic kidney disease with heart failure and stage 1 through stage 4 chronic kidney disease, or unspecified chronic kidney disease; I45.89 Other specified conduction disorders; Z99.11 Dependence on respirator [ventilator] status; I48.1 Persistent atrial fibrillation; Z68.41 Body mass index [BMI] 40.0-44.9, adult; E66.2 Morbid (severe) obesity with alveolar hypoventilation; I47.1 Supraventricular tachycardia; G45.8 Other transient cerebral ischemic attacks and related syndromes; I50.9 Heart failure, unspecified; E11.42 Type 2 diabetes mellitus with diabetic polyneuropathy; E11.51 Type 2 diabetes mellitus with diabetic peripheral angiopathy without gangrene; Z66 Do not resuscitate; Z51.5 Encounter for palliative care; D64.9 Anemia, unspecified; E03.9 Hypothyroidism, unspecified; E78.5 Hyperlipidemia, unspecified; H91.90 Unspecified hearing loss, unspecified ear; F41.9 Anxiety disorder, unspecified; F32.9 Major depressive disorder, single episode, unspecified; M54.5 Low back pain; E86.0 Dehydration; E83.52 Hypercalcemia; R53.1 Weakness; K59.00 Constipation, unspecified; R74.8 Abnormal levels of other serum enzymes; N18.3 Chronic kidney disease, stage 3 (moderate); E87.5 Hyperkalemia; R50.9 Fever, unspecified; E87.70 Fluid overload, unspecified; I44.30 Unspecified atrioventricular block; T50.2X5A Adverse effect of carbonic-anhydrase inhibitors, benzothiadiazides and other diuretics, initial encounter; I25.10 Atherosclerotic heart disease of native coronary artery without angina pectoris; E11.22 Type 2 diabetes mellitus with diabetic chronic kidney disease; J98.6 Disorders of diaphragm; M19.90 Unspecified osteoarthritis, unspecified site; K21.9 Gastro-esophageal reflux disease without esophagitis; Z83.3 Family history of diabetes mellitus; Z90.49 Acquired absence of other specified parts of digestive tract; Z91.041 Radiographic dye allergy status; Z90.710 Acquired absence of both cervix and uterus; Z82.5 Family history of asthma and other chronic lower respiratory diseases; Z82.49 Family history of ischemic heart disease and other diseases of the circulatory system; Z79.4 Long term (current) use of insulin; Z79.899 Other long term (current) drug therapy; Z87.891 Personal history of nicotine dependence; Z87.442 Personal history of urinary calculi; Z88.5 Allergy status to narcotic agent; Z87.19 Personal history of other diseases of the digestive system; Z87.828 Personal history of other (healed) physical injury and trauma; Z87.898 Personal history of other specified conditions; Z86.010 Personal history of colon polyps; Z87.440 Personal history of urinary (tract) infections; Z71.3 Dietary counseling and surveillance; Z81.1 Family history of alcohol abuse and dependence; Z81.8 Family history of other mental and behavioral disorders; Z83.49 Family history of other endocrine, nutritional and metabolic diseases; Z80.0 Family history of malignant neoplasm of digestive organs; Z79.2 Long term (current) use of antibiotics; Z79.82 Long term (current) use of aspirin; Z86.79 Personal history of other diseases of the circulatory system
CPT/HCPCS: 36415; 36600; 70450; 71010; 80048; 80053; 81001; 81003; 82150; 82550; 82553; 82805; 83036; 83605; 83690; 83735; 83880; 83970; 84100; 84165; 84484; 85025; 85027; 85610; 85730; 87040; 87070; 87086; 87205; 87324; 93005; 93306; 94002; 94003; 94640; 94660; 95816; 96361; 96374; 99285

== ENCOUNTER 2016-06-13 15:36 | Inpatient (IN) | payer OTHER ==
[2016-06-13 15:54] VITALS: BP 98/54; PULSE 114; TEMP 99.8
[2016-06-13 16:08] VITALS: BMI 55.1
[2016-06-13] MEDS ORDERED: LORazepam 2 MG/ML SYRINGE IV PRN (16:38)
[2016-06-13] MEDS ORDERED: SODIUM CHLORIDE 0.9% 1,000 ML IV SCH (16:45)
[2016-06-13] MEDS ORDERED: HYDROmorphone (PF) 50 MG in SODIUM CHLORIDE 0.9% 245 ML IV SCH (16:45)
--- NOTE | 2016-06-13 20:35 | P.PN ---
Subjective Principal diagnosis: Anoxic encephalopathy, pneumonia, respiratory failure, atrial fibrillation This patient was seen while she was in intensive care unit. Patient was intubated and sedated. She continued to be tribal fibrillation. She has anoxic encephalopathy. It is being discussed with family about hospice care. Meanwhile current medical therapy to be continued Objective - Vital Signs Vital signs: Vital Signs Temp 99.8 F H 06/13/16 15:52 Pulse 114 H 06/13/16 15:52 Resp 28 H 06/13/16 15:52 BP 98/54 06/13/16 15:52 Pulse Ox Intake & Output 06/13/16 06/13/16 06/14/16 06:59 18:59 06:59 Weight 155 kg - Exam GENERAL EXAM: Patient is intubated and sedated HEENT: Normocephalic. Normal reaction of pupils, equal size, normal range of extraocular motion. No erythema or exudates in the throat. NECK: No masses, no nuchal rigidity. CHEST: No chest wall deformity. LUNGS: Distant breath sounds HEART: Irregular heart sounds ABDOMEN: No hepatosplenomegaly, normal bowel sounds, no guarding or rigidity. SKIN: No rashes CENTRAL NERVOUS SYSTEM: Deferred EXTREMITIES: No cyanosis, clubbing or edema. Assessment and Plan (1) Anoxic encephalopathy Status: Acute (2) Acute exacerbation of chronic obstructive airways disease Status: Acute (3) Altered mental status Status: Acute (4) Atrial fibrillation Status: Acute Plan: Patient is being considered for hospice care. Meanwhile continue current medical therapy. prognosis is poor
[2016-06-13 21:56] VITALS: RESP 6
[2016-06-16] MEDS ORDERED: SCOPOLAMINE 1.5MG/72HR PATCH TRANSDERM SCH (16:00)
== END 2016-06-14 02:31 | disposition expired | DRG 91 ==
LOC: 6ICU 15:36 → 5ONC 17:46
PROVIDERS: ADMIT Internal Medicine; ATTEND Internal Medicine
DX: G93.1 Anoxic brain damage, not elsewhere classified (principal); J18.9 Pneumonia, unspecified organism; J96.90 Respiratory failure, unspecified, unspecified whether with hypoxia or hypercapnia; J44.0 Chronic obstructive pulmonary disease with (acute) lower respiratory infection; J44.1 Chronic obstructive pulmonary disease with (acute) exacerbation; Z68.43 Body mass index [BMI] 50.0-59.9, adult; Z66 Do not resuscitate; Z51.5 Encounter for palliative care; E66.9 Obesity, unspecified; E11.42 Type 2 diabetes mellitus with diabetic polyneuropathy; D69.6 Thrombocytopenia, unspecified; E11.51 Type 2 diabetes mellitus with diabetic peripheral angiopathy without gangrene; I48.91 Unspecified atrial fibrillation; I10 Essential (primary) hypertension; E03.9 Hypothyroidism, unspecified; K21.9 Gastro-esophageal reflux disease without esophagitis; M19.91 Primary osteoarthritis, unspecified site; Z90.49 Acquired absence of other specified parts of digestive tract; Z90.710 Acquired absence of both cervix and uterus; D64.9 Anemia, unspecified; Z79.84 Long term (current) use of oral hypoglycemic drugs; Z79.82 Long term (current) use of aspirin; Z79.4 Long term (current) use of insulin; Z79.899 Other long term (current) drug therapy